=== PATIENT | female | born 1960 | race Caucasian/White ===

== ENCOUNTER 2022-07-17 07:50 | Emergency (ER) | payer BC, SELFPAY ==
[2022-07-17] VITALS (22 sets, daily range): BP systolic 104–152; BP diastolic 44–119; PULSE 48–66; RESP 12–26; TEMP 36.3; O2SAT 98–100
--- NOTE | 2022-07-17 08:00 | RT.EKG_ITS ---
APPROVED REPORT Exam: Resting ECG Reason for Exam: chest pain Patient Location: E HR:56 bpm ECG Measurements Heart Rate 56 AXIS NE 177 P 81 QRSd 83 QRS 68 QT 444 T 54 QTc 430 Conclusion Sinus bradycardia...rate< 60
--- OUTSIDE RECORDS SUMMARY | 2022-07-17 08:03 | XMS_ITS | Encounter Summary ---
:1960 Author Organization [facility] Address [address] [place] [address] Care Team Providers Name Role Phone Sapphire Montez MD Primary Care Provider [phone] Encounter Details Date Type Department Care Team Description 12/19/2020 Travel Social History Tobacco Use Types Packs/Day Years Used Date Smoking Tobacco: Former Smokeless Tobacco: Never Comments: quit many yrs ago Alcohol Use Standard Drinks/Week Comments No 0 (1 standard drink = 0.6 oz pure alcoho l) Sex Assigned at Date Recorded Not on file Job Start Date Occupation Industry Not on file Not on file Not on file COVID-19 Exposure Response Date Recorded In the last month, have you been in contact with No / Unsure 12/19/2020 11:18 AM EST someone who was confirmed or suspected to have Coronavirus / COVID-19? documented as of this encounter Plan of Treatment Not on filedocumented as of this encounter Visit Diagnoses Not on filedocumented in this encounter Care Teams Renal Dialysis Technician Relationship Specialty Start Date End Date Sapphire Montez MD PCP - General Internal Medicine 08/06/18 documented as of this encounter
--- OUTSIDE RECORDS SUMMARY | 2022-07-17 08:03 | XMS_ITS | Encounter Summary ---
:1960 Author Organization [facility] Address [address] [place] [address] Care Team Providers Name Role Phone Sapphire Montez MD Primary Care Provider [phone] Encounter Details Date Type Department Care Team Description 12/21/2021 Travel Social History Tobacco Use Types Packs/Day Years Used Date Smoking Tobacco: Former Cigarettes 0 0 Smokeless Tobacco: Never Comments: quit many yrs [...] been in contact with No / Unsure 12/21/2021 12:10 PM EST someone who was confirmed or suspected to have Coronavirus / COVID-19? documented as of this encounter Plan of Treatment Not on filedocumented as of this encounter Visit Diagnoses Not on filedocumented in this encounter Care Teams Production Zone Leader Relationship Specialty Start Date End Date Sapphire Montez MD PCP - General Internal Medicine 08/06/18 documented as of this encounter
--- OUTSIDE RECORDS SUMMARY | 2022-07-17 08:03 | XMS_ITS | Encounter Summary ---
:1960 Author Organization [facility] Address [address] [place] [address] Care Team Providers Name Role Phone Sapphire Montez MD Primary Care Provider [phone] Reason for Referral Imaging (Routine) - Closed Specialty Diagnoses / Procedures Referred By Contact Refer red To Contact Radiology Diagnoses Encounter for screening mammogram for malignant neoplasm of breast Tyra Vallejo Procedures Mammogram Breast Screening Tomosynthesis Bilateral CHG SCREENING MAMMOGRAPHY BILATERAL [address] [place] [address] Referral ID Status Reason Start Date Expiration Date Visits Requ ested Visits Authorized [id number] Closed 10/28/2021 1 1 Reason for Visit Imaging (Routine) - Closed Specialty Diagnoses / Procedures Referred By Contact Refer eze To Contact Radiology Diagnoses Encounter for screening mammogram for malignant neoplasm of breast Tyra Vallejo Procedures Mammogram Breast Screening Tomosynthesis Bilateral CHG SCREENING MAMMOGRAPHY BILATERAL [address] [place] [address] Referral ID Status Reason Start Date Expiration Date Visits Requ ested Visits Authorized [id number] Closed 10/28/2021 1 1 Encounter Details Date Type Department Care Team Description 11/01/2021 Hospital Encounter [facility] for screening Women mammogram for malignant [address] [place] [address] Social History Tobacco Use Types Packs/Day Years Used Date Smoking Tobacco: Former Cigarettes 0 0 Smokeless Tobacco: Never Comments: quit many yrs ago Alcohol Use Standard Drinks/Week Comments No 0 (1 standard drink = 0.6 oz pure alcoho l) Sex Assigned at Date Recorded Not on file Job Start Date Occupation Industry Not on file Not on file Not on file documented as of this encounter Last Filed Vital Signs Vital Sign Reading Time Taken Comments Blood Pressure - - Pulse - - Temperature - - Respiratory Rate - - Oxygen Saturation - - Inhaled Oxygen Concentration - - Weight 49.9 kg (110 lb) 11/01/2021 8:31 AM EST Height 157.5 cm (5' 2) 11/01/2021 8:31 AM EST Body Mass Index 20.12 11/01/2021 8:31 AM EST documented in this encounter Medications at Time of Discharge Medication Sig Dispensed Refills Start Date End Date coenzyme Q-10 100 mg Take 100 mg by mouth 0 capsule 1 (one) time each day. estradiol (VIVELLE-DOT) Place 1 patch on the 0 0.075 mg/24 hr skin 2 (two) times a week. nitroGLYCERIN (NITROSTAT) Place 0.4 mg under 0 0.4 mg SL tablet the tongue every 5 (five) minutes if needed for chest pain. PROGESTERONE MICRONIZED Take 100 mg by mouth 0 ORALIndications: pt to 1 (one) time each confirm dosage DOS day. ranolazine (RANEXA) 500 mg Take 500 mg by mouth 0 12 hr tablet 2 (two) times a day. Do not crush, chew, or split. sennosides (SENOKOT ORAL) Take 1 tablet by 0 mouth 1 (one) time each day. traZODone (DESYREL) 50 mg Take 25 mg by mouth 0 tabletIndications: 25-50mg every night. nightly documented as of this encounter Plan of Treatment Not on filedocumented as of this encounter Procedures Procedure Name Priority Date/Time Associated Comments Diagnosis MAMMO BREAST SCREENING Routine 11/01/2021 8:30 AM Encounter fo r Results for this TOMOSYNTHESIS EST screening mammogram procedu re are in BILATERAL for malignant the results neoplasm of breast section. documented in this encounter Results Mammogram Breast Screening Tomosynthesis Bilateral (11/01/2021 8:30 AM EST) Anatomical Region Laterality Modality Breast Bilateral Mammography Specimen (Source) Anatomical Location Collection Method / Collectio n Time Received Time / Laterality Volume Impressions 11/01/2021 3:57 PM EST No mammographic evidence of malignancy. The patient will be notified of the resu lts. Screening Mammogram in 1 Year is recomme nded for both breasts. Overall BI-RADS category: 1 - Negative Policy Change Clerk: Kalyn Jerez Electronically signed by: Tasneem michaels MD On: 11/01/21 3:54 PM Narrative 11/01/2021 3:57 PM EST Mammogram Breast Screening Tomosynthesis Bilateral obtained on 11/01/21. INDICATION: Visit for Screening Mammogra m COMPARED TO: 08/21/2020 Mammogram Breast Screening To [facility]ynthesis Bilateral at [facility] 06/24/2019 Mammogram Problem Solving Add itional Views Left at [facility] 06/08/2019 Mammogram Breast Screening To mosynthesis Bilateral at [facility] BREAST COMPOSITION: The tissue of both b reasts is heterogenously dense. This will lower the sensitivity of mammo graphy. Your patient's mammogram demonstrates that she has dense breast t issue, which could hide small abnormalities. The patient has been sent a letter which informs her that she has dense breast tissue. The patient may contact you if she has any questions or concerns. RISK ASSESSMENT: Based on the Tyrer-Cuzi ck model, this patient's calculated 10-year risk for developing b reast cancer is Tyrer-Cuzick: 2.28 % and the patient's lifetime risk is Tyr er-Cuzick: 5.54 %. The [employer] considers women with 20% lifetime risk as high risk. Between 15% and 20% is considered inter mediate risk. These patients may benefit from enrollment in a high risk screening program for complete and thorough breast cancer risk assessme nt and management. FINDINGS: Computer-aided detection was used by the radiologist in the interpretation of this examination. This procedure was performed using tomosynthesis. ?? There are no suspicious masses, calcific ations, or other abnormal findings. Tyra BOYCE BI PROCEDURES documented in this encounter Visit Diagnoses Diagnosis Encounter for screening mammogram for ma lignant neoplasm of breast documented in this encounter Care Teams Waste Transportation Technician Relationship Specialty Start Date End Date Sapphire Montez MD PCP - General Internal Medicine 08/06/18 documented as of this encounter
--- OUTSIDE RECORDS SUMMARY | 2022-07-17 08:03 | XMS_ITS | Encounter Summary ---
:1960 Author Organization [facility] Address [address] [place] [address] Care Team Providers Name Role Phone Sapphire Montez MD Primary Care Provider [phone] Encounter Details Date Type Department Care Team Description 09/20/2021 Lab Outreach Lab Reena Charles Swelling of right hand [address] [phone] Social History Tobacco Use Types Packs/Day Years [...] on file documented as of this encounter Plan of Treatment Not on filedocumented as of this encounter Procedures Procedure Name Priority Date/Time Associated Diagnosis Comme nts CYCLIC CITRUL Routine 09/20/2021 8:46 AM Swelling of right Res ults for this PEPTIDE ANTIBODY, EDT hand procedure are in IGG the results section. documented in this encounter Results Cyclic citrul peptide antibody, IgG (09/20/2021 8:46 AM EDT) P athologist Signature Cyclic <15.6 <20.0 09/21/2021 [facility] Citrullin (Negative) 5:31 PM EDT Peptide Ab U Comment: Test Performed by: [facility] [address] [address] Recruiting Assistant: Nikolas Martinez M.D. Ph. D.; CLIA# [id number] Specimen Anatomical Collection Method / Collection Time Recei debbie Time (Source) Location / Volume Laterality Blood Venous blood / Venipuncture / 09/20/2021 8:46 09/20/20 8:46 Unknown Unknown AM EDT AM EDT Deepika Hood PA-C LAB BLOOD ORDERABLES Performing Organization Address City/State/ZIP Code Phon e Number [facility] [address] [place] [address] documented in this encounter Visit Diagnoses Diagnosis Swelling of right hand documented in this encounter Care Teams Head Baggage Porter Relationship Specialty Start Date End Date Sapphire Montez MD PCP - General Internal Medicine 08/06/18 documented as of this encounter
--- OUTSIDE RECORDS SUMMARY | 2022-07-17 08:03 | XMS_ITS | Encounter Summary ---
:1960 Author Organization [facility] Address [address] [facility] [place] [address] Care Team Providers Name Role Phone Sapphire Montez MD Primary Care Provider [phone] Reason for Visit (Routine) - Incomplete Specialty Diagnoses / Procedures Referred By Contact Refer red To Contact Diagnoses Left hip pain Sincere Mayfield MD Procedures X-ray Hip Left 2 or 3 Views CHG RADEX HIP UNILATERAL WITH PELVIS 2-3 VIEWS [address] [address] Referral ID Status Reason Start Date Expiration Date Visits V isits Requested Authorized [id number] Incomplete 05/05/2022 1 1 Encounter Details Date Type Department Care Team Description 05/05/2022 Ancillary Procedure [facility] Phi Mayfield MD Orthopedics in [facility] [place] affiliation with [facility] [address] [address] [phone] (Wo rk) Social History Tobacco Use Types Packs/Day Years [...] Exposure Response Date Recorded In the last 10 days, have you been in contact with No / Unsu re 04/29/2022 6:22 PM EDT someone who was confirmed or suspected to have Coronavirus/COVID-19? documented as of this encounter Plan of Treatment Not on filedocumented as of this encounter Procedures Procedure Name Priority Date/Time Associated Diagnosis Comme nts XR HIP 2 OR 3 VW Routine 05/05/2022 1:46 PM Left hip pain Resu lts for this LEFT EDT procedure are i n the results section. documented in this encounter Results X-ray Hip Left 2 or 3 Views (05/05/2022 1:46 PM EDT) Anatomical Region Laterality Modality Lower Extremities, Hip Left Digital Radiograp hy Specimen (Source) Anatomical Location Collection Method / Collectio n Time Received Time / Laterality Volume Narrative 05/05/2022 1:55 PM EDT Imaging of the left hip is reviewed reveals no evidence of DJD. ??There is evidence of retained hardware from appar ently previous femoral neck fracture. ??Implants remain well aligned well fixed no evidence of acute bony injury. Sincere Mayfield MD IMG XR PROCEDURES documented in this encounter Visit Diagnoses Not on filedocumented in this encounter Care Teams Jig Hand Relationship Specialty Start Date End Date Sapphire Montez MD PCP - General Internal Medicine 08/06/18 documented as of this encounter
--- OUTSIDE RECORDS SUMMARY | 2022-07-17 08:03 | XMS_ITS | Encounter Summary ---
:1960 Author Organization [facility] Address [address] [place] [address] Care Team Providers Name Role Phone Sapphire Montez MD Primary Care Provider [phone] Encounter Details Date Type Department Care Team Description 01/19/2022 Travel Social History Tobacco Use Types Packs/Day [...] on filedocumented in this encounter Care Teams Underwear Welter Relationship Specialty Start Date End Date Sapphire Montez MD PCP - General Internal Medicine 08/06/18 documented as of this encounter
--- OUTSIDE RECORDS SUMMARY | 2022-07-17 08:03 | XMS_ITS | Encounter Summary ---
:1960 Author Organization [facility] Address [address] [place] [address] Care Team Providers Name Role Phone Sapphire Montez MD Primary Care Provider [phone] Reason for Referral (Routine) - Closed Specialty Diagnoses / Procedures Referred By Contact Refer red To Contact Diagnoses Pain in right finger(s) Sapphire Montez MD Procedures X-ray Hand 3+ Views Right CHG X-RAY HAND 3+ [address] [place] [address] Referral ID Status Reason Start Date Expiration Date Visits Requ ested Visits Authorized [id number] Closed 08/20/2021 02/16/2022 1 1 Reason for Visit (Routine) - Closed Specialty Diagnoses / Procedures Referred By Contact Refer red To Contact Diagnoses Pain in right finger(s) Sapphire Montez MD Procedures X-ray Hand 3+ Views Right CHG X-RAY HAND 3+ [address] [place] [address] Referral ID Status Reason Start Date Expiration Date Visits Requ ested Visits Authorized [id number] Closed 08/20/2021 02/16/2022 1 1 Encounter Details Date Type Department Care Team Description 08/20/2021 Hospital Encounter Medical Imaging of Sapphire Montez Pain in right Van Tassell MD Ethel finger(s) [address] [facility], [address] [facility] [address] [address] [place], [place] [phone] [address] Social History Tobacco Use Types Packs/Day Years Used Date Smoking Tobacco: Former Smokeless Tobacco: Never Comments: quit many yrs ago Alcohol Use Standard Drinks/Week Comments No 0 (1 standard drink = 0.6 oz pure alcoho l) Sex Assigned at Date Recorded Not on file Job Start Date Occupation Industry Not on file Not on file Not on file documented as of this encounter Medications at Time of Discharge [...] Priority Date/Time Associated Diagnosis Comme nts XR HAND 3+ VIEWS Routine 08/20/2021 6:42 PM Pain in right Resu lts for this RIGHT EDT finger(s) procedure are i n the results section. documented in this encounter Results X-ray Hand 3+ Views Right (08/20/2021 6:42 PM EDT) Anatomical Region Laterality Modality Upper Extremities, Hand Right Digital Radiogra phy Specimen (Source) Anatomical Collection Method Collection Time Re ceived Time Location / / Volume Laterality 08/21/2021 11:34 AM EDT Impressions 08/21/2021 11:35 AM EDT Unremarkable right hand radiography.. Dictated: Jung Bermudez MD On: 08/21/20 11:34 AM Electronically signed by: Jung Bermudez MD On: 08/21/2021 11:35 AM Transcribed: Narrative 08/21/2021 11:35 AM EDT History: Swelling and pain at the metacarpophalangeal joints of the right hand for 2-3 months. Report: A total of 4 exposures, 4 radiog raphic images, including PA, internal oblique, external oblique, and lateral radiographs of the right hand is submitted for interpretation. Findings: There is no evidence of acute displaced fracture or dislocation of the osseous structures of the right hand. Mineralization of the osseous structures of the right hand is normal. Soft tissues of the right hand appear un remarkable radiographically. Procedure Note Jung Bermudez MD - 08/21/2021Format ting of this note might be different from the original. History: Swelling and pain at the metaca rpophalangeal joints of the right hand for 2-3 months. Report: A total of 4 exposures, 4 radiog raphic images, including PA, internal oblique, external oblique, and lateral radiographs of the right hand is submitted for interpretation. Findings: There is no evidence of acute displaced fracture or dislocation of the osseous structures of the right hand. Mineralization of the osseous structures of the right hand is normal. Soft tissues of the right hand appear un remarkable radiographically. IMPRESSION: Unremarkable right hand radiography.. Dictated: Jung Bermudez MD On: 08/21/20 11:34 AM Electronically signed by: Jung Bermudez MD On: 08/21/2021 11:35 AM Transcribed: Sapphire Montez MD IMG XR PROCEDURES documented in this encounter Visit Diagnoses Diagnosis Pain in right finger(s) documented in this encounter Care Teams Tumbling Barrel Painter Relationship Specialty Start Date End Date Sapphire Montez MD PCP - General Internal Medicine 08/06/18 documented as of this encounter
--- OUTSIDE RECORDS SUMMARY | 2022-07-17 08:03 | XMS_ITS | Encounter Summary ---
:1960 Author Organization [facility] Address [address] [place] [address] Care Team Providers Name Role Phone Sapphire Montez MD Primary Care Provider [phone] Encounter Details Date Type Department Care Team Description 08/28/2021 Telephone [facility] Orthopedics in [place], affiliation with [facility] [address] [address] [place], [place] [phone] (Wo rk) Social History Tobacco Use Types [...] on file documented as of this encounter Miscellaneous Notes Telephone Encounter - Francy Dominguez MA - 08/28/2021 12:35 PM EDT Scheduled patient for first available. Patient c/o right wrist pain and swelling for past year-no injury. Patient stated appt with PA was fine. documented in this encounter Plan of Treatment Not on filedocumented as of this encounter Visit Diagnoses Not on filedocumented in this encounter Care Teams Lone Lead Lineman Relationship Specialty Start Date End Date Sapphire Montez MD PCP - General Internal Medicine 08/06/18 documented as of this encounter
--- OUTSIDE RECORDS SUMMARY | 2022-07-17 08:03 | XMS_ITS | Clinical Summary ---
:1960 Author Organization [facility] Address [address] [place] [address] Care Team Providers Name Role Phone Sapphire Montez MD Primary Care Provider [phone] Allergies No known active allergies Medications Medication Sig Dispensed Refills Start Date End Date Status traZODone (DESYREL) 50 Take 25 mg by 0 Active mg tabletIndications: mouth every 25-50mg nightly night. nitroGLYCERIN Place 0.4 mg 0 Act kaelyn (NITROSTAT) 0.4 mg SL under the tongue tablet every 5 (five) minutes if needed for chest pain. ranolazine (RANEXA) 500 Take 500 mg by 0 Active mg 12 hr tablet mouth 2 (two) times a day. Do not crush, chew, or split. estradiol (VIVELLE-DOT) Place 1 patch on 0 Active 0.075 mg/24 hr the skin 2 (two) times a week. PROGESTERONE MICRONIZED Take 100 mg by 0 Active ORALIndications: pt to mouth 1 (one) confirm dosage DOS time each day. coenzyme Q-10 100 mg Take 100 mg by 0 Active capsule mouth 1 (one) time each day. sennosides (SENOKOT Take 1 tablet by 0 Active ORAL) mouth 1 (one) time each day. dilTIAZem (TIAZAC) 300 Take 1 capsule 30 capsule 0 11/20/2019 Active mg 24 hr capsule (300 mg total) by mouth 1 (one) time each day. Additional Information Patient taking differently: 240 mg oral Daily, Other, Reported on 08/16/2020 albuterol HFA (Proventil HFA) 90 Inhale 2 puffs every 6 (six) 0 Active mcg/actuation inhaler hours if needed. amLODIPine (Norvasc) 2.5 mg Take 2.5 mg by mouth. 0 Active tablet escitalopram (Lexapro) 10 mg Take 10 mg by mouth 1 (one) 0 03/12/2022 Active tablet time each day. ibuprofen (Advil) 200 mg tablet Take 800 mg by mouth. 0 Active ipratropium-albuteroL (Combivent Inhale 2 puffs every 6 (six) 0 Active Respimat) 20-100 mcg/actuation hours. inhaler miSOPROStoL (Cytotec) 200 mcg TAKE 2 TABLETS BY MOUTH 12 0 02/28/2022 Active tablet HOUR BEFORE PROCEDURE montelukast (Singulair) 10 mg Take 10 mg by mouth every 0 Active tablet night. nebivoloL (Bystolic) 2.5 mg Take 2.5 mg by mouth 1 (one) 0 02/20/2022 Active tablet time each day. rosuvastatin (Crestor) 10 mg 0 Active tablet rosuvastatin (Crestor) 10 mg Take 10 mg by mouth 1 (one) 0 03/21/2022 Active tablet time each day. Active Problems Problem Noted Date Prinzmetal angina 11/18/2019 [place] (myocardial infarction) 09/09/2018 Atherosclerotic coronary vascular disease 07/17/2018 Abdominal pain 12/04/2017 Urinary tract infectious disease 12/04/2017 Patellar tendinitis of left knee 06/06/2014 Insomnia 05/02/2011 Recurrent urinary tract infection 05/02/2011 Encounters Date Type Specialty Care Team Description 05/05/2022 Ancillary Procedure Orthopaedic Surgery Sincere Mayfield MD 05/05/2022 Office Visit Orthopaedic Surgery [facility], Left hip pain (Primary Dx); MD Sincere Contusion of le ft hip, initial encounter 04/29/2022 Travel from Last 3 Months Immunizations Name Administration Dates Next Due Influenza Injectable Quadrivalent, 11/15/2019 (Deferred: Kelsey mesa Refused - Preservative Free pt now states she does not want this will get from her PCP at a later date) Pfizer SARS-CoV-2 Vaccination 02/28/2021, 02/07/2021, 2020, 12/21/2020 Tdap 03/21/2022 Family History Medical History Relation Comments No Known Problems Father No Known Problems Mother No Known Problems Sister 1 No Known Problems Sister 2 No Known Problems Sister 3 Relation Status Comments Father Mother Sister 1 Sister 2 Sister 3 Social History Tobacco Use Types Packs/Day Years Used Date Smoking Tobacco: Former Cigarettes 0 0 Smokeless Tobacco: Never Comments: quit many yrs ago Alcohol Use Standard Drinks/Week Comments No 0 (1 standard drink = 0.6 oz pure alcoho l) Sex Assigned at Date Recorded Not on file Job Start Date Occupation Industry Not on file Not on file Not on file Last Filed Vital Signs Vital Sign Reading Time Taken Comments Blood Pressure 178/82 10/03/2020 7:32 PM EST Pulse 78 10/03/2020 7:32 PM EST Temperature 37.1 ??C (98.8 ??F) 10/03/2020 7:32 PM EST Respiratory Rate 16 10/03/2020 7:31 PM EST Oxygen Saturation 97% 10/03/2020 7:32 PM EST Inhaled Oxygen Concentration - - Weight 49.9 kg (110 lb) 05/05/2022 1:51 PM EDT Height 157.5 cm (5' 2) 05/05/2022 1:51 PM EDT Body Mass Index 20.12 05/05/2022 1:51 PM EDT Plan of Treatment Health Maintenance Due Date Last Done Comments CT Colonography 1960 Colonoscopy 1960 Colorectal Cancer Screening 1960 Colposcopy 1960 FIT-DNA 1960 FIT 1960 FOBT 1960 Hepatitis B Vaccines (1 of 3 1960 - 3-dose series) LEEP/Biopsy 1960 Procedure 1960 Sigmoidoscopy 1960 MMR Vaccines (1 of 1 - 1961 Standard series) Varicella Vaccines (1 of 2 - 1961 2-dose childhood series) Pneumococcal Vaccine: 1966 Pediatrics (0 to 5 Years) and At-Risk Patients (6 to 64 Years) (1 - PCV) Pap Smear 1981 Cervical Cancer Screening 1990 HPV/Cotest 1990 Zoster Vaccines (1 of 2) 2010 DTaP,Tdap,and Td Vaccines (2 04/18/2022 03/21/2022 - Td or Tdap) Influenza Vaccine (#1) 2022 Mammogram 11/01/2022 11/01/2021, 08/21/2020, 06/08/2019 COVID-19 Vaccine Completed 09/09/2021, 02/28/2021, 02/07/2021, Additional history exists HIB Vaccines Aged Out No longer eligib le based on patient 's age to complete this topic HPV Vaccines Aged Out No longer eligib le based on patient 's age to complete this topic Hepatitis A Vaccines Aged Out No longer e ligible based on patient 's age to complete this topic IPV Vaccines Aged Out No longer eligib le based on patient 's age to complete this topic Meningococcal Vaccine Aged Out No longer eligible based on patient 's age to complete this topic Medical Devices Implanted Type Area Director Of Marketing Analytics Device Shelf Model / Identifier Expiration Serial / Date Lot Screw Bone Cannulated Stainless Steel 16mm Thread Hexa gonal Socket 75 X 7.3mm MISCELLANEOUS Left: [employer] SYN[employer] CMF 208.875 / Implanted: Qty: 1 on 11/14/2019 by Sincere Chavira MD at [facility] IMPLANTS Hip / NA Description: Serial no and exp date na Procedures Procedure Name Priority Date/Time Associated Diagnosis Comme nts XR HIP 2 OR 3 VW Routine 05/05/2022 1:46 PM Left hip pain Resu lts for this LEFT EDT procedure are i n the results section. from Last 3 Months Results X-ray Hip Left 2 or 3 [...] injury. 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
--- OUTSIDE RECORDS SUMMARY | 2022-07-17 08:03 | XMS_ITS | Encounter Summary ---
:1960 Author Organization [facility] Address [address] [place] [address] Care Team Providers Name Role Phone Sapphire Montez MD Primary Care Provider [phone] Encounter Details Date Type Department Care Team Description 12/21/2020 Clinical Support [facility] Mobile COVID Encoun ter for Immunization Clinic vaccinat ion (Primary Dx) Social History Tobacco Use Types Packs/Day Years [...] filedocumented as of this encounter Visit Diagnoses Diagnosis Encounter for vaccination - Primary documented in this encounter Care Teams Metal Mover Relationship Specialty Start Date End Date Sapphire Montez MD PCP - General Internal Medicine 08/06/18 documented as of this encounter
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
--- OUTSIDE RECORDS SUMMARY | 2022-07-17 08:03 | XMS_ITS | Encounter Summary ---
:1960 Author Organization [facility] Address [address] [place] [address] Care Team Providers Name Role Phone Sapphire Montez MD Primary Care Provider [phone] Reason for Visit Reason Comments Pain Encounter Details Date Type Department Care Team Description 09/19/2021 Office Visit Ashai Mathur of right hand Orthopedics in [place] (Primary Dx) affiliation with [address] [id number] Social History Tobacco Use Types Packs/Day Years [...] on file documented as of this encounter Progress Notes Deepika Hood PA-C - 09/19/2021 10:00 AM EDT New Patient 09/19/21 10:43 AM Chief Complaint: Chief Complaint Patient presents with ??? Right Wrist - Pain History of Present Illness: She is a very pleasant 60 y.o. right hand dominant female who is here today for right hand pain located along the of MCP joints of digits 2 through 5. She initially has noticed swelling throughout those joints for the past year and has increased with certain activities such as kayaking and paddle boarding. Over this past month , however , the swelling became worse. She felt like the joints were also tender and and red. She was seen by her primary care doctor ordered an x-ray and blood work and she was told that the blood work was negative for rheumatoid arthritis, but she does not know which antibodies were tested. She was told to try diclofenac gel which only helped slightly with swelling. She has been using ice which has significantly helped the swelling. She also feels like both hands have become stiff and not as nimble as what they oncce were. she does have a history of Lyme disease and has noticed swelling and pain in multiple joints throughout her body in the past, but her main concern today is the right hand. Pain described as a 4/10 worsened by certain movements and improved by avoiding activity, ice, medications. Associated symptoms include swelling and weakness. Here today for initial orthopedic evaluation. History: Review of Systems Constitutional: Negative for fever. Respiratory: Negative for shortness of breath. Cardiovascular: Negative for chest pain. Musculoskeletal: Negative for arthralgias, joint swelling and myalgias. Neurological: Negative for numbness. Current Outpatient Medications: ??? coenzyme Q-10 100 mg capsule, Take 100 mg by mouth 1 (one) time each day., Disp: , Rfl: ??? diclofenac (Voltaren) 75 mg EC tablet, Take 1 tablet (75 mg total) by mouth 2 (two) times a day.Do not crush, chew, or split., Disp: 60 tablet, Rfl: 0 ??? dilTIAZem (TIAZAC) 300 mg 24 hr capsule, Take 1 capsule (300 mg total) by mouth 1 (one) time each day. (Patient taking differently: Take 240 mg by mouth 1 (one) time each day. ), Disp: 30 capsule, Rfl: 0 ??? estradiol (VIVELLE-DOT) 0.075 mg/24 hr, Place 1 patch on the skin 2 (two) times a week., Disp: ,Rfl: ??? nitroGLYCERIN (NITROSTAT) 0.4 mg SL tablet, Place 0.4 mg under the tongue every 5 (five) minutesif needed for chest pain., Disp: , Rfl: ??? PROGESTERONE MICRONIZED ORAL, Take 100 mg by mouth 1 (one) time each day. , Disp: , Rfl: ??? ranolazine (RANEXA) 500 mg 12 hr tablet, Take 500 mg by mouth 2 (two) times a day. Do not crush,chew, or split., Disp: , Rfl: ??? sennosides (SENOKOT ORAL), Take 1 tablet by mouth 1 (one) time each day., Disp: , Rfl: ??? traZODone (DESYREL) 50 mg tablet, Take 25 mg by mouth every night. , Disp: , Rfl: Past Medical History: Diagnosis Date ??? Angina pectoris (CMS-HCC) ??? Anxiety ??? Coronary artery disease coronary microvascular disease ??? Coronary vasospasm (CMS/HCC) right coronary artery ??? Fractures non displaced femoral neck fx left ??? Hyperlipidemia ??? Hypertension ??? Joint pain L hip ??? Pneumonia 10 yrs ago ??? Wears glasses reading Family History Problem Relation Age of Onset ??? No Known Problems Sister ??? No Known Problems Sister ??? No Known Problems Sister ??? No Known Problems Mother ??? No Known Problems Father Past Surgical History: Procedure Laterality Date ??? CARDIAC CATHETERIZATION ??? SECTION x 3 ??? CYST REMOVAL Left Benign Cyst Removal ??? FEMUR FRACTURE SURGERY Left 10/2019 Social History Socioeconomic History ??? Marital status: Spouse name: Not on file ??? Number of children: Not on file ??? Years of education: Not on file ??? Highest education level: Not on file Occupational History ??? Not on file Tobacco Use ??? Smoking status: Former Smoker Packs/day: 0.00 Years: 0.00 Pack years: 0.00 ??? Smokeless tobacco: Never Used ??? Tobacco comment: quit many yrs ago Substance and Sexual Activity ??? Alcohol use: No ??? Drug use: No ??? Sexual activity: Defer Other Topics Concern ??? Not on file Social History Narrative ??? Not on file Social Determinants of Health Financial Resource Strain: ??? Difficulty of Paying Living Expenses: Not on file Food Insecurity: ??? Worried About Running Out of Food in the Last Year: Not on file ??? Ran Out of Food in the Last Year: Not on file Transportation Needs: ??? Lack of Transportation (Medical): Not on file ??? Lack of Transportation (Non-Medical): Not on file Physical Activity: ??? Days of Exercise per Week: Not on file ??? Minutes of Exercise per Session: Not on file Stress: ??? Feeling of Stress : Not on file Social Connections: ??? Frequency of Communication with Friends and Family: Not on file ??? Frequency of Social Gatherings with Friends and Family: Not on file ??? Attends Buddhism Services: Not on file ??? Active Member of Clubs or Organizations: Not on file ??? Attends Club or Organization Meetings: Not on file ??? Marital Status: Not on file Intimate Partner Violence: ??? Fear of Current or Ex-Partner: Not on file ??? Emotionally Abused: Not on file ??? Physically Abused: Not on file ??? Sexually Abused: Not on file Housing Stability: ??? Unable to Pay for Housing in the Last Year: Not on file ??? Number of Places Lived in the Last Year: Not on file ??? Unstable Housing in the Last Year: Not on file Reviewed ROS, past medical, family, surgical and social history. Physical Exam: Constitutional: The patient appears to be their stated age. They are in no acute distress Psychiatric: Alert and oriented x4 Respiratory: Breathing is non-labored Neurology: No focal motor or sensory deficits Skin: No evidence of any open wounds or lesions. Normal skin color and temperature Lymphatic: No appreciable adenopathy Vascular: Peripheral pulses and capillary refill are intact Musculoskeletal: On physical exam, mild swelling noted throughout the dorsal aspect of the MCP joints of digits 2 through 5 of the right hand. They are not tender to palpation on today's exam today. Noerythema or warmth noted along the MCP joints. She make a full fist has full extension of all 5 digits. Bilateral negative Phalen's, carpal compression, and Tinel's test. No significant thenar atrophy noted. She is neurovascularly intact. Ancillary: I independently reviewed the right hand x-rays which were done on 08/20/21 which showed mild joint space narrowing along the MCP joints, most significant at the at the MCP joint of the right small finger. No acute fractures or dislocations noted Imaging: X-ray Hand 3+ Views Right Narrative: History: Swelling and pain at the metacarpophalangeal joints of the right hand for 2-3 months. Report: A total of 4 exposures, 4 radiographic images, including PA, internal oblique, external oblique, and lateral radiographs of the right hand is submitted for interpretation. Findings: There is no evidence of acute displaced fracture or dislocation of the osseous structures of the right hand. Mineralization of the osseous structures of the right hand is normal. Soft tissues of the right hand appear unremarkable radiographically. Impression: Unremarkable right hand radiography.. Dictated: Jung Bermudez MD On: 08/21/2021 11:34 AM Electronically signed by: Jung Bermudez MD On: 08/21/2021 11:35 AM Transcribed: Assessment and Plan: Diagnosis Plan 1. Swelling of right hand diclofenac (Voltaren) 75 mg EC tablet Uric acid Sedimentation rate (ESR) C-reactive protein DAVON Cyclic citrul peptide antibody, IgG Based on history and physical exam, differentials for swelling include underlying osteoarthritis versus possible autoimmune condition. I recommend blood work to rule out autoimmune conditions. Also recommend diclofenac and a compression glove to see was helps with the swelling. I do recommend manual tester stre ngthening exercises. Follow-up in 6 weeks for further evaluation and to review the blood work. She has call the office before then with any concerns. This note was generated using voice recognition software which may contain certain grammatical and word choice errors. SHIKHA Lyons PA-C documented in this encounter Plan of Treatment Not on filedocumented as of this encounter Procedures Procedure Name Priority Date/Time Associated Comments Diagnosis SEDIMENTATION RATE Routine 09/20/2021 8:46 AM Swelling of righ t Results for this (ESR) EDT hand procedure are i n the results section. C-REACTIVE PROTEIN Routine 09/20/2021 8:46 AM Swelling of righ t Results for this EDT hand procedure are i n the results section. DAVON Routine 09/20/2021 8:46 AM Swelling of right Resu lts for this EDT hand procedure are i n the results section. URIC ACID Routine 09/20/2021 8:46 AM Swelling of right Resu lts for this EDT hand procedure are i n the results section. documented in this encounter Results Cyclic citrul peptide antibody, IgG (09/20/2021 8:46 AM EDT) P athologist Signature Cyclic <15.6 <20.0 09/21/2021 [facility] Citrullin (Negative) 5:31 PM EDT Peptide Ab U Comment: Test Performed by: [place] [id number] Perinatal Specialist: Nikolas Martinez M.D. Ph. D.; CLIA# [id number] Specimen Anatomical Collection Method / Collection Time Recei debbie Time (Source) Location / Volume Laterality Blood Venous blood / Venipuncture / 09/20/2021 8:46 09/20/20 8:46 Unknown Unknown AM EDT AM EDT Deepika Hood PA-C LAB BLOOD ORDERABLES Performing Organization Address [facility] Phon e Number [facility] [address] [place] [address] DAVON (09/20/2021 8:46 AM EDT) Patholo gist Method Time Signature Antinuclear Ab, <1:80 <1:80 09/23/2021 [facility] HEp-2 Substrate, (Negative (Negative 1:42 PM EDT LABORATORY S ) ) Comment: ADDITIONAL INFORMATIO N Method: Immunofluorescence using HEp-2 c ellular substrate. Test Performed by: [place] [id number] Perinatal Specialist: Nikolas Martinez M.D. Ph. D.; CLIA# [id number] Specimen Anatomical Collection Method / Collection Time Recei debbie Time (Source) Location / Volume Laterality Blood Venous blood / Venipuncture / 09/20/2021 8:46 09/20/20 8:46 Unknown Unknown AM EDT AM EDT Deepika Hood PA-C LAB MICROBIOLOGY - GENERAL O RDERABLES Performing Organization Address [facility] Phon e Number [facility] [address] [place] [address] C-reactive protein (09/20/2021 8:46 AM EDT) athologist Signature CRP <0.5 0.0 - 1.0 LAB CHEMISTRY 09/20/2021 [facility] mg/dL METHOD 10:37 AM EDT Specimen Anatomical Collection Method / Collection Time Recei debbie Time (Source) Location / Volume Laterality Blood Venous blood / Venipuncture / 09/20/2021 8:46 09/20/20 8:46 Unknown Unknown AM EDT AM EDT Deepika Hood PA-C LAB BLOOD ORDERABLES Performing Organization Address City/[facility] Phon e Number [facility] [address] [place] [address] Sedimentation rate (ESR) (09/20/2021 8:46 AM EDT) athologist Signature Sed Rate 1 0 - 30 mm/hr 09/20/2021 [facility] 10:04 AM EDT Specimen Anatomical Collection Method / Collection Time Recei debbie Time (Source) Location / Volume Laterality Blood Venous blood / Venipuncture / 09/20/2021 8:46 09/20/20 8:46 Unknown Unknown AM EDT AM EDT Deepika Hood PA-C LAB BLOOD ORDERABLES Performing Organization Address [facility] Phon e Number [facility] [address] [place] [address] Uric acid (09/20/2021 8:46 AM EDT) athologist Signature Uric Acid 2.6 2.5 - 7.5 LAB CHEMISTRY 09/20/2021 [facility] mg/dL METHOD 10:37 AM EDT Specimen Anatomical Collection Method / Collection Time Recei debbie Time (Source) Location / Volume Laterality Blood Venous blood / Venipuncture / 09/20/2021 8:46 09/20/20 8:46 Unknown Unknown AM EDT AM EDT Deepika Saleemter PA-C LAB BLOOD ORDERABLES Performing Organization Address City/[facility] Phon e Number [facility] [address] [place] [address] documented in this encounter Visit Diagnoses Diagnosis Swelling of right hand - Primary documented in this encounter Care Teams Batteryman Relationship Specialty Start Date End Date Sapphire Montez MD PCP - General Internal Medicine 08/06/18 documented as of this encounter
--- OUTSIDE RECORDS SUMMARY | 2022-07-17 08:03 | XMS_ITS | Encounter Summary ---
:1960 Author Organization [facility] Address [address] [place] [address] Care Team Providers Name Role Phone Sapphire Montez MD Primary Care Provider [phone] Encounter Details Date Type Department Care Team Description 01/12/2021 Clinical Support [facility] Mobile Jeramy Maldonado En counter for Immunization Clinic Heladio Carter MD vaccination [facility] (Primary Dx) [address] [phone] Social History Tobacco Use Types Packs/Day Years [...] Primary documented in this encounter Care Teams Fiberglass Bonding Machine Tender Relationship Specialty Start Date End Date Sapphire Montez MD PCP - General Internal Medicine 08/06/18 documented as of this encounter
--- OUTSIDE RECORDS SUMMARY | 2022-07-17 08:03 | XMS_ITS | Encounter Summary ---
:1960 Author Organization [facility] Address [address] [place] [address] Care Team Providers Name Role Phone Sapphire Montez MD Primary Care Provider [phone] Encounter Details Date Type Department Care Team Description 04/29/2022 Travel Social History Tobacco Use Types Packs/Day [...] on filedocumented in this encounter Care Teams Retirement Village Manager Relationship Specialty Start Date End Date Sapphire Montez MD PCP - General Internal Medicine 08/06/18 documented as of this encounter
--- OUTSIDE RECORDS SUMMARY | 2022-07-17 08:04 | XMS_ITS | Encounter Summary ---
:1960 Author Organization [facility] Address [address] [place] [address] Care Team Providers Name Role Phone Sapphire Montez MD Primary Care Provider [phone] Reason for Visit Imaging (Routine) - Closed Specialty Diagnoses / Procedures Referred By Contact Refer red To Contact Radiology Diagnoses Postmenopausal bleeding System, Provider Not In Procedures Ultrasound Pelvis/Transvaginal Ultrasound Pelvis CHG ECHO,PELVIC (NONOBSTETRIC) [place] [address] Referral ID Status Reason Start Date Expiration Date Visits Requ ested Visits Authorized [id number] Closed 10/09/2020 1 1 Encounter Details Date Type Department Care Team Description 10/11/2020 Hospital Encounter [facility] [address] [place] [address], [address] [place] [address] Social History Tobacco Use Types [...] Procedure Name Priority Date/Time Associated Diagnosis Comme [facility] US Routine 10/11/2020 8:03 AM Postmenopausal bleedin g Results for this PELVIC/TRANSVAGINA EST procedure are in L the results section. documented in this encounter Results Ultrasound Pelvis/Transvaginal (10/11/2020 8:03 AM EST) Anatomical Region Laterality Modality Body Ultrasound Specimen (Source) Anatomical Collection Method Collection Time Re ceived Time Location / / Volume Laterality 10/11/2020 8:36 AM EST Impressions 10/11/2020 10:33 AM EST Uterine myometrial echo pattern heteroge neity small cyst in the submucosal region raises the possibility of adenomyosis. No endometrial echo complex lesion is no wade. Slight abnormal thickening of the endometrial echo complex. Ovaries are unremarkable. Dictated: Jere Jasmine MD On: 10/11/20 8:36 AM Electronically signed by: Jere Jasmine MD On: 10/11/2020 10:33 AM Transcribed: 10/11/2020 9:23 AM Norma Alexander Narrative 10/11/2020 10:33 AM EST INDICATION: Postmenopausal vaginal bleeding. COMPARISON: None. TECHNIQUE: Transabdominal / Endovaginal / Color Duplex / 3-Dimensional DATE OF LMP: ?? Postmenopausal FINDINGS: UTERUS: ??Size (cm): Length: 9.8, ??AP: 4.0, Width: 5.6 Myometrial Echo Pattern: Heterogeneous. Small cysts noted in the submucosal region. Contour: Normal. ENDOMETRIAL ECHO COMPLEX: The endometria l cavity is normally collapsed with no fluid distention. Width: 5.1 mm. Again noted small cysts in the submucosal region. RIGHT OVARY: Size (cm): Length: 1.9, ??AP: 0.9, ??Wid th: 2.2, Volume: 2.0 mL. Normal. LEFT OVARY: Size (cm): Length: 1.2, ??AP: 0.8, ??Wid th: 1.3, Volume 0.6 mL. Normal. OVARIAN DOPPLER: Blood flow is demonstra wade to both ovaries. ADNEXAL MASSES: None seen. CUL-DE-SAC: No free fluid present. Procedure Note Jere Jasmine MD - 10/11/2020Formatt ing of this note might be different from the original. INDICATION: Postmenopausal vaginal bleed ing. COMPARISON: None. TECHNIQUE: Transabdominal / Endovaginal / Color Duplex / 3-Dimensional DATE OF LMP: Postmenopausal FINDINGS: UTERUS: Size (cm): Length: 9.8, AP: 4.0, Width: 5.6 Myometrial Echo Pattern: Heterogeneous. Small cysts noted in the submucosal region. Contour: Normal. ENDOMETRIAL ECHO COMPLEX: The endometria l cavity is normally collapsed with no fluid distention. Width: 5.1 mm. Again noted small cysts in the submucosal region. RIGHT OVARY: Size (cm): Length: 1.9, AP: 0.9, Width: 2.2, Volume: 2.0 mL. Normal. LEFT OVARY: Size (cm): Length: 1.2, AP: 0.8, Width: 1.3, Volume 0.6 mL. Normal. OVARIAN DOPPLER: Blood flow is demonstra wade to both ovaries. ADNEXAL MASSES: None seen. CUL-DE-SAC: No free fluid present. IMPRESSION: Uterine myometrial echo pattern heteroge neity small cyst in the submucosal region raises the possibility of adenomyosis. No endometrial echo complex lesion is no wade. Slight abnormal thickening of the endometrial echo complex. Ovaries are unremarkable. Dictated: Jere Jasmine MD On: 10/11/20 8:36 AM Electronically signed by: Jere Jasmine MD On: 10/11/2020 10:33 AM Transcribed: 10/11/2020 9:23 AM Norma Alexander Provider Not In System IMG US PROCEDURES documented in this encounter Visit Diagnoses Diagnosis Postmenopausal bleeding documented in this encounter Care Teams Life Teacher Relationship Specialty Start Date End Date Sapphire Montez MD PCP - General Internal Medicine 08/06/18 documented as of this encounter
--- OUTSIDE RECORDS SUMMARY | 2022-07-17 08:04 | XMS_ITS | Encounter Summary ---
:1960 Author Organization [facility] Address [address] [place] [address] Care Team Providers Name Role Phone Sapphire Montez MD Primary Care Provider [phone] Reason for Visit Auth/Cert Specialty Diagnoses / Procedures Referred By Contact Refer red To Contact Diagnoses Strain of adductor muscle, fascia and tendon of unspecified thigh, subsequent encounter Procedures CLOSED REDUCTION PERCUTANEOUS PINNING LEFT HIP 7.3 SYNTHES JACOB SCREW ELINA FX TABLE Referral ID Status Reason Start Date Expiration Date Visits Requ ested Visits Authorized [id number] 1 1 Encounter Details Date Type Department Care Team Description 11/14/2019 - Hospital Encounter [facility] XSincere huggins, 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/[address] MD infarction) [address] (Primary Dx) [id number] [place] [phone] [address] [place] [address] Social History Tobacco Use Types Packs/Day Years [...] Sign Reading Time Taken Comments Blood Pressure 152/68 11/15/2019 1:29 PM EST Pulse 69 11/15/2019 1:29 PM EST Temperature 36.5 ??C (97.7 ??F) 11/15/2019 1:29 PM EST Respiratory Rate 18 11/15/2019 1:29 PM EST Oxygen Saturation 100% 11/15/2019 1:29 PM EST Inhaled Oxygen Concentration - - Weight 52.5 kg (115 lb 12.8 oz) 11/14/2019 10:06 AM EST Height 157.5 cm (5' 2) 11/14/2019 10:06 AM EST Body Mass Index 21.18 11/14/2019 10:06 AM EST documented in this encounter Discharge Instructions Discharge InstructionsSincere Mayfield MD - 11/14/2019 11:11 AM EST ORTHOPEDIC DISCHARGE INSTRUCTIONS: ?? Discharge Disposition: Patient is discharged to home. Keep leg elevated to minimize swelling apply ice to help with pain and swelling reduction. Dressing change: Daily dry dressing changes as needed starting 48-72 hours postop, if there is no drainage may leave wound open to air. No creams, lotions, ointments, oils on surgical wounds. No tub baths or soaking wound in water. Sutures/catalina: To be removed in two weeks postop DVT Prophylaxis: Not indicated Weight Bearing Status / Activity: Weight bearing as tolerated. Diet: Advance diet as tolerated Follow Up: Follow up in the office in 2 week(s). ?? Note: Please be aware that medications, including narcotics, will not be refilled on weekends or after 4:30 pm on week days. If you need a medication refill, please contact our office during normal business hours Thursday through Thursday. ?? If you have any questions or concerns prior to your follow up visit, please do no hesitate to call the office at ?? documented in this encounter Medications at Time of Discharge Medication Sig Dispensed Refills Start Date End Date coenzyme Q-10 100 mg Take 100 mg by 0 capsule mouth 1 (one) time each day. estradiol (VIVELLE-DOT) Place 1 patch on 0 0.075 mg/24 hr the skin 2 (two) times a week. nitroGLYCERIN (NITROSTAT) Place 0.4 mg under 0 0.4 mg SL tablet the tongue every 5 (five) minutes if needed for chest pain. PROGESTERONE MICRONIZED Take 100 mg by 0 ORALIndications: pt to mouth 1 (one) time confirm dosage DOS each day. ranolazine (RANEXA) 500 mg Take 500 mg by 0 12 hr tablet mouth 2 (two) times a day. Do not crush, chew, or split. sennosides (SENOKOT ORAL) Take 1 tablet by 0 mouth 1 (one) time each day. traZODone (DESYREL) 50 mg Take 25 mg by mouth 0 tabletIndications: 25-50mg every night. nightly dilTIAZem (CARDIZEM) 120 Take 240 mg by 0 11/19/2019 mg immediate release mouth 1 (one) time tablet each day. ibuprofen (ADVIL) 200 mg Take 200 mg by 0 08/16/2020 tablet mouth 2 (two) times a day if needed for mild pain. isosorbide dinitrate Take 5 mg by mouth 0 11/18/2019 (ISORDIL) 5 mg tablet 3 (three) times a day. rosuvastatin (CRESTOR) 20 Take 20 mg by mouth 0 11/19/2019 mg tablet 1 (one) time each day. documented as of this encounter Progress Notes Rahul Jacobson, PT - 11/15/2019 9:01 AM EST Physical Therapy Evaluation with Discharge Assessment: Principal Problem: left hip pain, stress fracture, s/p closed percutaneous pinning left hip Precautions: fall risk Weight bearing status:left lower extremity weight bearing as tolerated Based on the objective data below, patient presents with decreased strength, ROM, mobility, increased pain and is POD1 from L hip closed percutaneous pinning. Pt received supine in bed. Pt shows good ROM however limited with hip flexion on left. Pt performs all functional tasks with supervision to cga. Pt able to performs stairs in various handrail applications as well as cleared car training. Pt returns to room where LE exercises were reviewed and copy given. Pt questions were answered to her satisfaction. Pt encouraged to increase ambulation with aadc plans staff officer while hospitalized. Plan/Recommendations: Patient will be discharged from acute skilled PT services. Patient is independent with functional mobility Discharge Recommendations: Home with family support and with outpatient therapy Equipment Recommendations for discharge: RW Subjective: Patient stated: I feel good. I was planning to go up stairs on my butt. Objective: 11/15/19900 Visit Type Visit Type Evaluation General Start Time 826 Stop Time 900 Time Calculation (min) 34 min PT Last Seen By DL PT Received On 11/15/19 PT Frequency of Treatment One time visit only Family/Caregiver Present No PT Comments perc pinning, L hip WBAT, supv for all, OPPT when cleared by MD Patient Position Supine in bed;Elevated head of bed Pain Assessment Pain Classification Mild Precautions Weight Bearing Status WBAT L LE Home Living Type of Home House Lives With Spouse Home Access Stairs to enter without rails Entrance Stairs-Number of Steps 2 Home Layout Multi-level;1/2 bath on main level;Bed/bath upstairs Alternate Level Stairs-Number of Steps 16 Alternate Level Stairs-Rails Right Bathroom Shower/Tub Walk-in shower Bathroom Toilet Standard Bathroom Equipment None Home Equipment Rolling walker;Cane;Crutches Prior Level of Function Level of [place] Independent Receives Help From Family Cognition Orientation Level Oriented X4 Neurologic State Alert Cognition Follows commands Safety/Judgement Awareness of environment Perseveration No perseveration noted Range of Motion General Within functional limits Left Lower Extremity Hip ROM - Left Hip limited by pain Strength General Generally decreased, functional Left Lower Extremity Hip Left Hip Scoring Scale 3-/5 Sensation Light Touch No apparent deficits Integumentary Integumentary dressing to left hip Posture Postural Deviations None Postural Control WFL Balance Static Sitting Good Dynamic Sitting Good Static Standing Fair + Dynamic Standing Fair + Bed Mobility Supine to Sit Supervision;Additional time Sit to Supine Supervision;Additional time Scooting Modified independent Transfers Sit to Stand Stand-by assistance;Adaptive equipment;Additional time Stand to Sit Supervision;Additional time;Adaptive equipment Car Transfer Supervision Ambulation Distance (ft) 400 Ambulation - Level of Assistance Stand-by assistance;Supervision;Additional time;Adaptive equipment Equipment Rolling walker Gait Pattern Antalgic;[id number];Slow pace;Narrow base of support;Decreased step length Gait Training sequencing, use of RW, stride length Comments steady, improved to step over step with increased load as ambulation progressed. Stairs Number of Stairs 5x3 Handrail Use unilateral, bilateral, none Stairs - Level of Assistance Supervision;Contact guard assistance Equipment Used cane Pattern Step to Comments peformed bilateral handrails, single handrail and cane, no handrail with cane and MILL HOUSE SUPERVISOR. All steady with good technique Activity Additional Activities reviewed post op exercise Activity Tolerance good Mobility (AM-PAC) 6 Clicks Assessment Difficulty turning over in bed without using bedrails 4 - None Difficulty lying on back to sitting without using bedrails 4 - None Help from another to move to and from bed to chair 3 - A little Difficulty sitting and standing up from chair with arms 4 - None Help from another to walk in hospital room 3 - A little Help from another climbing 3-5 steps with railing 3 - A little Mobility 6 clicks (AM-PAC) score 21 Prognosis Patients Rehab Potential Excellent Problem List Decreased range of motion;Impaired balance;Decreased mobility;Pain Recommendation Recommendation Home with caregiver support Equipment Recommended Walker Functional Measure: [facility] AM-PAC '6 Clicks' V.2 Basic Mobility Inpatient Short Form: See flow sheet for details. RAW SCORE: 21 CMS 0 - 100% SCORE: 30% Patient/Family Education: safety, importance of mobility, plan of care. Goals: Pt stated goal: to be active without pain again. After session, patient was left: -in no apparent distress -call barker and phone within reach -bed/chair alarm activated Rahul Jacobson, PT Sincere Mayfield MD - 11/15/2019 7:33 AM EST Progress Upper Extremity ORTHO 1 Day Post-Op Subjective: Status Post closed reduction percutaneous pinning left hip femoral neck stress fracture Systemic or Specific Complaints:No Complaints and Redness Objective: Visit Vitals BP 122/73 (BP Location: Left upper arm, Patient Position: Lying) Pulse 69 Temp 97.5 ??F (36.4 ??C) (Oral) Resp 16 Ht 5' 2 (1.575 m) Wt 115 lb 12.8 oz (52.5 kg) SpO2 99% BMI 21.18 kg/m?? OB Status Postmenopausal Smoking Status Former Smoker BSA 1.52 m?? Temp Max: Temp (24hrs), Av.7 ??F (36.5 ??C), Min:97.3 ??F (36.3 ??C), Max:98.6 ??F (37 ??C) General: alert and in no distress Wound: wound clean and dry no evidence of infection PE LLE: sensation over skin intact, brisk capillary refill distally, able to move toes with little discomfort, PF/DF5/5, dressings CDI, compartments soft no signs of compartment syndrome Data Review Lab Results Component Value Date HGB 13.4 11/15/2019 HCT 42 11/15/2019 No results found for: INR, PT I & O: Intake/Output Summary (Last 24 hours) at 11/15/2019 0733 Last data filed at 11/15/2019 0624 Gross per 24 hour Intake 1695.38 ml Output 3085 ml Net -1389.62 ml @IODETAILS@ Assessment: Status Post 1 Day Post-Op closed reduction percutaneous pinning left hip femoral neck stress fracture Plan: VTE prophylaxis Continue current multimodal pain regimen Continue PT progression - WBAT LLE with walker cane or crutches as needed Dispo planning: Discharge home with self-care today Sincere Mayfield MD Adult Hip and Knee Reconstruction documented in this encounter H&P Notes Sincere Mayfield MD - 11/14/2019 11:07 AM EST H&P reviewed. The patient was examined and there are no changes to the H&P. Source Note - KAMALJIT Lopez - 11/14/2019 12:00 AM EST documented in this encounter Procedure Notes Randall Cerda RN - 11/11/2019 1:37 PM EST Pre-Surgery Medication Instructions: Medication Instructions ??? estradiol (VIVELLE-DOT) 0.075 mg/24 hr Per MD Instructions ??? ibuprofen (ADVIL) 200 mg tablet Per MD Instructions ??? isosorbide dinitrate (ISORDIL) 5 mg tablet Per MD Instructions ??? nitroGLYCERIN (NITROSTAT) 0.4 mg SL tablet Per MD Instructions ??? PROGESTERONE MICRONIZED ORAL Per MD Instructions ??? ranolazine (RANEXA) 500 mg 12 hr tablet Per MD Instructions ??? rosuvastatin (CRESTOR) 20 mg tablet Per MD Instructions ??? dilTIAZem (CARDIZEM) 120 mg immediate release tablet Per MD Instructions ??? traZODone (DESYREL) 50 mg tablet Per MD Instructions Be prepared to verify your medications on day of surgery. Do not bring valuables, jewelry or more than $5.00. Do not wear jewelry, body piercing, makeup, fingernail mauritian, or lipstick on day of surgery. If wear contact lenses, please wear glasses instead. If you have a case, bring it. Must have responsible adult to drive you home - may not take taxi alone. On day of surgery, take your medications as directed by surgeon/proceduralist. Oral/NPO intake guidelines. No gum, candy, or mints. Wear loose comfortable clothes on day of surgery. Appropriate clothing for specific procedure. It is advisable to have someone with you for 24 hrs after your surgery/procedure. Park in patient/visitor parking areas outside of Patient Registration. Bring a list of current medications. Do not bring medication bottles with you. Considering privacy/care of patients, we may restrict number of visitors allowed. Outpatient - family required to stay on hospital. Requested local company refrigerated truck driver/responsible alliance party stay in waiting room until notified by staff. Responsible Customer Service Dispatcher Name/Relationship: spouse James Patient Arrival Time: 0900 documented in this encounter Consult Notes JONATHON Harper - 11/15/2019 12:27 PM ESTAssociated Order(s): IP CONSULT TO CASE MANAGEMENT 11/15/2019 @ 0930 CM s/w PT and pt is cleared to d/c home with family and does not need home health.CM s/w pt and she is admitted for hip left hip close percutaneous pinning. Pt was independent beforeadmission. Pt states her is getting a walker and cane for her. Pt states family will be hometo assist her as needed and she does not want home health. She will f/u with surgeon as outpt. Pt states no needs from CM. JONATHON Harper [id number] documented in this encounter Nursing Notes Aminta Randolph RN - 11/15/2019 1:25 PM EST Pt feels well, no pain, no nausea pt would like to proceed with dc home at this time, as the daughter called the pharmacy again and Dr. Mayfield had called in a prescription for zofran as the pt had asked for. Dc instructions reviewed with the pt/ daughter and her at this time, all questions answered pt verbalizes understanding of all items discussed and will call her MD for any problems or concerns. Aminta Randolph RN - 11/15/2019 10:50 AM EST Pt states she is still having nausea and feels it is caused by the Ohlman, pt states she has taken percocet on 3 different occasions and it didn't make her nauseated. Call and message left with Dr Mayfield to make him aware as pt only has Ohlman at home for pain. 11:15: Dr Mayfield called at this time states he will have pain medication Percocet called into this pts pharmacy she will need to call her pharmacy before she leaves the hospital to make sure that there are meds for her to pickling grader. Pt made aware of this and at this time the pts / daughter wouldlike her to have something for nausea called in as well just in case, explained to the pt that her MD went to OR and a message was left for him regarding this. Pt updated. Pt and state they will not leave until they take a dose of Percocet here in the hospital in order to make sure pt does nothave the same reaction of nausea. Aminta Randolph RN - 11/15/2019 8:[address] Per pt Dr Mayfield was here and told pt she could dc home once she had voided, pt was up to the bathroom was able to void on her own. Per pt MD also stated he could dc home without seeing PT before she left. Discussed with the pt she would like to dc to home by 1030 am. documented in this encounter OR Notes Op Note - Sincere Mayfield MD - 11/15/2019 7:37 AM EST Operative Note Pre-op Diagnosis: * Strain of adductor muscle, fascia and tendon of unspecified thigh, subsequent encounter [S76.219D] Post-op Diagnosis: * Strain of adductor muscle, fascia and tendon of unspecified thigh, subsequent encounter [S76.219D] Procedure: * CLOSED REDUCTION PERCUTANEOUS PINNING LEFT HIP Laterality: Left Surgeon(s): Sincere Mayfield MD [employer] Science Teacher/Staff: New Vehicle Sales Consultant: Vinita Lopez RN Relief New Vehicle Sales Consultant: Corinne Farrar RN Relief Scrub: Karen Iverson Scrub Person: Aric Hoskins Assist: Elizabeth Chance Anesthesia: Local with Monitored Anesthesia Care Total IV Fluids: 500ml Estimated Blood Loss: 10 mL Drains: [REMOVED] Urethral Catheter Latex (Removed) Output (mL) 575 mL 11/14/2019 4:10 PM [REMOVED] Urethral Catheter 16 Fr. (Removed) Site Assessment Clean;Skin intact 11/15/2019 2:52 AM Collection Container Standard drainage bag 11/15/2019 2:52 AM Securement Method Securing device (Describe) 11/15/2019 2:52 AM Reason for Continuing Urinary Catherization Existing order for future date to remove catheter 11/15/2019 2:52 AM Implants: Implant Name Type Inv. Item Serial No. Construction Supervisor Lot No. [id number] No. Used SCREW BONE CANNULATED STAINLESS STEEL 16MM THREAD HEXAGONAL SOCKET 80 X 7.3MM MISCELLANEOUS IMPLANTSSCREW BONE CANNULATED STAINLESS STEEL 16MM THREAD HEXAGONAL SOCKET 80 X 7.3MM [employer] CV SYNTHES CMF NA Left 2 SCREW BONE CANNULATED STAINLESS STEEL 16MM THREAD HEXAGONAL SOCKET 75 X 7.3MM MISCELLANEOUS IMPLANTSSCREW BONE CANNULATED STAINLESS STEEL 16MM THREAD HEXAGONAL SOCKET 75 X 7.3MM Seafarers CV SYNTHES CMF NA Left 1 Specimens: No specimens were documented in this log. Complications: None; patient tolerated the procedure well. Disposition: PACU - hemodynamically stable. Condition: stable Indications: Patient is a 59-year-old female diagnosed with a left femoral neck stress fracture. Patient had no resolution in symptoms with conservative care for 2 months. Femoral neck stress fracture was diagnosed on MRI. Recommendation was made to proceed with percutaneous pinning optimize healing prevent fracture. Risks complications benefits of the surgery were explained informed consent was obtained patient decided to proceed with surgical intervention. Operation: Patient was identified the preoperative area by myself. Correct extremity was identified and marked. Patient was brought to the operating by anesthesia and transferred to the operating table. Time was called in accordance with protocol patient was identified procedure was confirmed laterality was confirmed. IV antibiotics were given within 30 min of the incision. Patient was then prepped and draped usual sterile orthopedic fashion. Anatomic layers were identified. A small longitudinal incision was made over lateral aspect of the femur. Three guidewires were placed up the femoral neck andprobed position was confirmed I utilizing fluoroscopic imaging on orthogonal views. Three cannulated screws were then placed over the guidewires. Appropriate position of the implants was once again confirmed on orthogonal views with fluoroscopic imaging. Guidewires were removed the wound was thoroughly irrigated and infiltrated with local injuries with core percent Marcaine. Layered closure was then performed and wound was dressed with clean dressings. Final patient was then woken from anesthesia transferred to hospital bed sent to the postanesthesia care unit having tolerated the procedure withoutany known complications. Plan: Patient may be weight-bearing as tolerated with cane walker or crutches as needed. DVT prophylaxis is not indicated. Patient to follow up in 2 weeks for wound check. Sincere Mayfield MD Perioperative Nursing Note - Norma Maier RN - 11/14/2019 5:09 PM EST James, pt's spouse notified that pt left to room 5066. Pt's personal belongings on bed for transport. Perioperative Nursing Note - Norma Maier RN - 11/14/2019 4:31 PM EST SBAR report given to Aissatou Hill. Perioperative Nursing Note - Norma Maier RN - 11/14/2019 4:[address] Steel at bedside to talk to pt to address questions/ concerns about anesthesia today. Spinal wearing off slowly. Pt able to lift R knee off the bed but can only slightly lift up L knee. Pt states LLE more numb than RLE; both legs with numbness and tingling. Perioperative Nursing Note - Norma Maier RN - 11/14/2019 3:[address] Mayfield returned page, order obtained for admit for Observation. Perioperative Nursing Note - Norma Maier RN - 11/14/2019 2:46 PM EST Rodriguez emptied of 1200 mL clear yellow urine. Pt's abdomen soft, non tender, and non distended. Perioperative Nursing Note - Norma Maier RN - 11/14/2019 2:40 PM EST Rodriguez catheter inserted and pt states feeling instant relief of abdominal pain. Perioperative Nursing Note - Norma Maier RN - 11/14/2019 2:35 PM EST Bladder scan performed, > 999 mL present in pt's bladder. Attempt to call OR [address] Mayfield but no answer. Anesthesia, Dr Steel notified by Lanie and order obtained for indwelling catheter. Pt continues to have numbness and tingling in both legs and can only lift knees off the bed slightly. Perioperative Nursing Note - Norma Maier RN - 11/14/2019 2:33 PM EST Pt c/o abdominal pain. Lower abdomen distended and firm. Pt states feeling urge to void but not being able to feel emptying bladder in PACU on bedpan of a small amount of urine. Perioperative Nursing Note - Lynn Kuo RN - 11/14/2019 2:30 PM EST Report to Evelyne WILDER SDS, pt in bed. She has voided 100 mls yellow urine in bedpan and an additional moderate amount on pad under aragon. Perioperative Nursing Note - Lynn Kuo RN - 11/14/2019 2:06 PM EST Pt now able to move both her feet, she states she has mild feelings when I touch her legs. She states she has normal feelings at her thighs and stomach. She is on bed aragon trying to void but is not successful Brief Op Note - Sincere Mayfield MD - 11/14/2019 11:49 AM EST Brief Operative Note Pre-op Diagnosis: Left femoral neck stress fracture Post-op Diagnosis: Same Procedure: * CLOSED REDUCTION PERCUTANEOUS PINNING LEFT HIP Laterality: Left Surgeon(s): Sincere Mayfield MD [employer] Science Teacher/Staff: New Vehicle Sales Consultant: Vinita Lopez RN Relief New Vehicle Sales Consultant: Corinne Farrar RN Relief Scrub: Karen Iverson Scrub Person: Aric Hoskins Assist: Elizabeth Chance Anesthesia: Local with Monitored Anesthesia Care Total IV Fluids: 500ml Estimated Blood Loss: 10 mL Drains: Urethral Catheter 16 Fr. (Active) Site Assessment Clean;Skin intact 11/14/2019 9:07 PM Collection Container Standard drainage bag 11/14/2019 9:07 PM Securement Method Securing device (Describe) 11/14/2019 9:07 PM Reason for Continuing Urinary Catherization Existing order for future date to remove catheter 11/14/2019 9:07 PM Implants: Implant Name Type Inv. Item Serial No. Construction Supervisor Lot No. LRB No. Used SCREW BONE CANNULATED STAINLESS STEEL 16MM THREAD HEXAGONAL SOCKET 80 X 7.3MM MISCELLANEOUS IMPLANTSSCREW BONE CANNULATED STAINLESS STEEL 16MM THREAD HEXAGONAL SOCKET 80 X 7.3MM JNJ SYNTHES CMF NA Left 2 SCREW BONE CANNULATED STAINLESS STEEL 16MM THREAD HEXAGONAL SOCKET 75 X 7.3MM MISCELLANEOUS IMPLANTSSCREW BONE CANNULATED STAINLESS STEEL 16MM THREAD HEXAGONAL SOCKET 75 X 7.3MM JNJ SYNTHES CMF NA Left 1 Specimens: No specimens were documented in this log. Complications: None; patient tolerated the procedure well. Disposition: PACU - hemodynamically stable. Condition: stable Sincere Mayfield MD documented in this encounter Plan of Treatment Not on filedocumented as of this encounter Procedures Procedure Name Priority Date/Time Associated Comments Diagnosis HEMOGLOBIN AND Routine 11/15/2019 5:29 Results fo r this HEMATOCRIT, BLOOD AM EST procedure are in the results section. BASIC METABOLIC PANEL Routine 11/15/2019 5:29 Res ults for this AM EST procedure are i n the results section. INCENTIVE SPIROMETRY RT Routine 11/14/2019 10:01 PM EST INCENTIVE SPIROMETRY RT Routine 11/14/2019 10:01 PM EST INCENTIVE SPIROMETRY RT Routine 11/14/2019 10:01 PM EST INCENTIVE SPIROMETRY RT Routine 11/14/2019 10:01 PM EST XR HIP INTRAOPERATIVE Routine 11/14/2019 12:17 Old ID (myocard ial Results for this LEFT PM EST infarction) procedure are i n the results section. CURTIS PINNING OF HIP 11/14/2019 10:51 Strain of addu ctor AM EST muscle, fascia and tendon of unspecified thigh, subsequent encounter documented in this encounter Results (ABNORMAL) Basic Metabolic Panel (11/15/2019 5:29 AM EST) Analysis Performed At Patho logist Time Signature Glucose 110 (H) 65 - 105 LAB CHEMISTRY 11/15/2019 [facility] mg/dL METHOD 6:26 AM EST BUN 6 (L) 7 - 22 LAB CHEMISTRY 11/15/2019 [facility] mg/dL METHOD 6:26 AM EST Creatinine 0.7 0.7 - 1.2 LAB CHEMISTRY 11/15/2019 [facility] mg/dL METHOD 6:26 AM EST Sodium 141 137 - 145 LAB CHEMISTRY 11/15/2019 [facility] mmol/L METHOD 6:26 AM EST Potassium 4.3 3.5 - 5.3 LAB CHEMISTRY 11/15/2019 [facility] mmol/L METHOD 6:26 AM EST Chloride 107 98 - 107 LAB CHEMISTRY 11/15/2019 [facility] mmol/L METHOD 6:26 AM EST CO2 26 22 - 30 LAB CHEMISTRY 11/15/2019 [facility] mmol/L METHOD 6:26 AM EST Calcium 9.3 8.4 - LAB CHEMISTRY 11/15/2019 [facility] 10.2 METHOD 6:26 AM EST mg/dL eGFR >60 >60 LAB CHEMISTRY 11/15/2019 [facility] mL/min/1. METHOD 6:26 AM EST 73m*2 Anion Gap (K+ 8 3 - 12 LAB CHEMISTRY 11/15/2019 [facility] excluded) mmol/L METHOD 6:26 AM EST Specimen Anatomical Collection Method / Collection Time Recei debbie Time (Source) Location / Volume Laterality Blood Venous blood / Venipuncture / 11/15/2019 5:29 11/15/20 19 5:40 Unknown Unknown AM EST AM EST Sincere Mayfield MD LAB BLOOD ORDERABLES Performing Organization Address City/State/[facility] Phon e Number [facility] [address] [place] [address] [phone] Hemoglobin and hematocrit, blood (11/15/2019 5:29 AM EST) P athologist Signature Hemoglobin 13.4 11.0 - 15.0 LAB HEMETOLOGY 11/15/2019 [facility] g/dL METHOD 5:46 AM EST Hematocrit 42 35 - 45 % LAB HEMETOLOGY 11/15/2019 [facility] METHOD 5:46 AM EST Specimen Anatomical Collection Method / Collection Time Recei debbie Time (Source) Location / Volume Laterality Blood Venous blood / Venipuncture / 11/15/2019 5:29 11/15/20 19 5:40 Unknown Unknown AM EST AM EST Narrative [facility] - 11/15/2019 5:46 AM EST Call surgeon if hemoglobin less than 9.0 . Sincere Mayfield MD LAB BLOOD ORDERABLES Performing Organization Address City/State/ZIP Code Phon e Number [facility] [address] [place] [address] [phone] X-ray hip intraoperative left (11/14/2019 12:17 PM EST) Anatomical Region Laterality Modality Lower Extremities, Hip Left Digital Radiograp hy Specimen (Source) Anatomical Collection Method Collection Time Re ceived Time Location / / Volume Laterality 11/14/2019 1:48 PM EST Impressions 11/14/2019 2:01 PM EST Please see the above. Dictated: Dima Pineda MD On: 2018 1:48 PM Electronically signed by: Dima crane MD On: 11/14/2019 2:01 PM Transcribed: 11/14/2019 1:56 PM Darlin nicole Narrative 11/14/2019 2:01 PM EST INDICATION: Left hip nailing. FINDINGS: Single frontal view of the left hip was obtained from the OR. Three screws traverse the left femoral neck without complicating features. Well-positioned left hip joint space. Procedure Note Dima Pineda MD - 11/14/2019Formatt ing of this note might be different from the original. INDICATION: Left hip nailing. FINDINGS: Single frontal view of the left hip was obtained from the OR. Three screws traverse the left femoral neck without complicating features. Well-positioned left hip joint space. IMPRESSION: Please see the above. Dictated: Dima Pineda MD On: 2018 1:48 PM Electronically signed by: Dima crane MD On: 11/14/2019 2:01 PM Transcribed: 11/14/2019 1:56 PM Darlin nicole Sincere Mayfield MD IMG FLUOROSCOPY PROCEDURES documented in this encounter Visit Diagnoses Diagnosis Old ID (myocardial infarction) - Primary Old myocardial infarction Plan of Care - Juany Kuo RN - 11/15/2019 3:35 AM EST Goals: Problem: Pain Goal: Patient's pain/discomfort is manageable 11/15/2019 0335 by Juany Kuo RN Outcome: Progressing 11/14/2019 1823 by Shelby Garner RN Outcome: Progressing Problem: Safety Goal: Patient will be injury free during hospitalization 11/15/2019334 by Juany Kuo RN Outcome: Progressing 11/14/2019 182 by Shelby Garner RN Outcome: Progressing Goal: Patient will remain free of falls 11/15/2019334 by Juany Kuo RN Outcome: Progressing 11/14/20191822 by Shelby Garner RN Outcome: Progressing Problem: Daily Care Goal: Daily care needs are met 11/15/2019334 by Juany Kuo RN Outcome: Progressing 11/14/2019 182 by Shelby Garner RN Outcome: Progressing Problem: Psychosocial Needs Goal: Demonstrates ability to cope with hospitalization/illness 11/15/2019334 by Juany Kuo RN Outcome: Progressing 11/14/20191822 by Shelby Garner RN Outcome: Progressing Goal: Collaborate with patient/family/caregiver to identify patient specific goals for this hospitalization 11/15/2019334 by Juany Kuo RN Outcome: Progressing 11/14/2019 182 by Shelby Garner RN Outcome: Progressing Problem: Discharge Barriers Goal: Patient's discharge needs are met 11/15/2019334 by Juany Kuo RN Outcome: Progressing 11/14/2019 182 by Shelby Garner RN Outcome: Progressing Problem: Safety Adult - Fall Goal: Free from fall injury 11/15/2019334 by Juany Kuo RN Outcome: Progressing 11/14/20191822 by Shelby Garner RN Outcome: Progressing Problem: Knowledge Deficit Goal: Patient/family/caregiver demonstrates understanding of disease process, treatment plan, medications, and discharge instructions Outcome: Progressing Problem: Activity Intolerance/Impaired Mobility Goal: Mobility/activity is maintained at optimum level for patient Outcome: Progressing Problem: Potential For Peripheral Neurovascular Impairment Goal: Extremity color, movement, and sensation are maintained or improved Outcome: Progressing Identify possible barriers to meeting goals/advancing plan of care: Stability of the patient: Moderately Stable - Low risk of patient condition declining or worsening End of Shift Summary: Pt's progressing towards goals, increase activity, effective pain control. Plan of Care - Shelby Garner RN - 11/14/2019 6:23 PM EST Goals: Identify possible barriers to meeting goals/advancing plan of care: pain Stability of the patient: Moderately Stable - Low risk of patient condition declining or worsening End of Shift Summary: progressing towards goals documented in this encounter Administered Medications Inactive Administered Medications - up to 3 most recent administrations Medication Order MAR Action Action Date Dose Rate Site acetaminophen (TYLENOL) suppository 650 mg 650 mg, rectal, Every 4 hours PRN, mild pain, Starting on Thu11/14/19 at 2200, Give if unable to take oral. acetaminophen (TYLENOL) tablet 650 mg 650 mg, oral, Every 4 hours PRN, mild pain, Starting o n Thu11/14/19 at 2200 aspirin delayed release tablet 81 mg Given 11/15/2019 6:20 AM EST 81 mg 81 mg, oral, 2 times daily with meals, First dose on Thu11/15/19 at 0700, Indications: dysmenorrhea, Blood clot prevention after joint replacement HYDROcodone-acetaminophen (NORCO) 5-325 mg Given 11/14 6:45 PM EST 1 tablet 1 tablet 1 tablet, oral, Every 4 hours PRN, moderate pain, Starting on Thu11/14/19 at 1715 HYDROcodone-acetaminophen (NORCO) 7.5-325 Given 2018 10:44 AM EST 1 tablet mg 1 tablet 1 tablet, oral, Every 4 hours PRN, moderate pain, Starting on Thu11/14/19 at 2200 Given 11/15/2019 6:46 AM EST 1 tablet Given 11/15/2019 6:20 AM EST 1 tablet lactated Ringer's infusion Continued from Pre 11/14/2019 11:11 AM EST 75 mL/hr, intravenous, Continuous, Starting on Thu11/14/19 at 0945, IV Fluids to be administered only in pre-op holding or cotton buyer to OR if the patient is in the ICU. New Bag 11/14/2019 10:30 AM EST 75 mL/hr 75 mL/hr morphine PF 2 mg/mL injection 4 mg Given 11/15/2019 2:53 AM EST 4 mg 4 mg, intravenous, Every 4 hours PRN, severe pain , Starting on Thu11/14/19 at 2200, If unable to take oral. Given 11/14/2019 11:00 PM EST 4 mg ondansetron (ZOFRAN) injection 4 mg Given 11/15/2019 10:53 AM EST 4 mg 4 mg, intravenous, Every 6 hours PRN, nausea, vomiting, Starting on Thu11/14/19 at 2200 ondansetron (ZOFRAN) injection 4 mg Given 11/14/2019 10:19 PM EST 4 mg 4 mg, intravenous, Every 6 hours PRN, nausea, vomiting, if ubable to tolerate PO zofran, Starting on Thu11/14/19 at 2145 oxyCODONE (ROXICODONE) immediate release tablet Given 11/14/2019 3:18 PM EST 5 mg 5 mg 5 mg, oral, Every 6 hours PRN, severe pain , Starting on Thu11/14/19 at 1243, PACU (only), For use once the patient is transitioned to oral. oxyCODONE-acetaminophen (PERCOCET) 5-325 Given 11/15/2019 12 :31 PM EST 1 tablet mg 1 tablet 1 tablet, oral, Every 4 hours PRN, moderate pain, Starting on Thu11/15/19 at 1221 promethazine (PHENERGAN) injection 6.25 mg 6.25 mg, intravenous, Every 6 hours PRN, nausea, vomiting, Second Line, Starting on Thu11/14/19 at 2146, If given IV, dilute in 10 mL of NS. Do not inject into hand/wrist. Max rate: 25 mg/min. sodium chloride 0.9 Rate/Dose Verify 11/15/2019 6:24 AM 100 mL/hr 10 0 mL/hr percent infusion EST 100 mL/hr, intravenous, Continuous, Starting on Thu11/14/19 at 2215 Restarted 11/14/2019 11:02 PM EST 100 mL/hr 100 mL/hr New Bag 11/14/2019 11:01 PM EST 100 mL/hr 100 mL/hr documented in this encounter Active and Recently Administered Medications Times are shown in EST. Scheduled Medication Order 11/13/2019 11/14/2019 11/15/2019 aspirin delayed release tablet 81 mg 0620 (Given - Provider: Juany Kuo RN) 81 mg, oral, 2 times daily with meals, F irst dose on Thu11/15/19 at 0700, Indications: dysmenorrhea, Blood clot prevention after joint replacement ceFAZolin in dextrose 5 % (ANCEF) 2 g IVPB 100 mL (COMPLETED ) 1122 (Given - Provider: Andrei Laureano CRNA) 2 g, intravenous, at 200 mL/hr, Administ er over 0.5 Hours, Once, On Thu11/14/19 at 0945, For 1 dose, Pre-op, Administer within 1 hour of surgical incision. premix bag, Reason for therapy: Surgical Prophylaxis docusate sodium (COLACE) capsule 100 mg 2215 (Not Given - Provider: Juany Kuo RN - Reason: Patient/family refused) 1000 (Not Given - Provider: Aminta Randolph, TINA - Reason: Patient/family refused) 100 mg, oral, 2 times daily, First dose on Thu11/14/19 at 2215 Continuous Medication Order 11/13/2019 11/14/2019 11/15/2019 lactated Ringer's infusion 0945 (Due)103 0 (New Bag - Provider: Danuta Cates)1111 (Continued from Pre - Provider: Andrei Laureano CRNA)1231 (Stopped - Provider: Andrei Laureano CRNA) 75 mL/hr, intravenous, at 75 mL/hr, Cont inuous, Starting on Thu11/14/19 at 0945, IV Fluids to be administered only in pre-op holding or cotton buyer to OR if the patient is in the ICU. sodium chloride 0.9 percent infusion 230 1 (New Bag - Provider: Juany Kuo RN)2301 (Paused - Provider: Juany Kuo RN)2302 (Restarted - Provider: Juany Kuo RN) 0624 (Rate/Dose Verify - Provider: Enedina Kuo RN)0800 (Stopped - Provider: Aminta Randolph RN) 100 mL/hr, intravenous, at 100 mL/hr, Co ntinuous, Starting on Thu11/14/19 at 2215 PRN Medication Order 11/13/2019 11/14/2019 11/15/2019 acetaminophen (TYLENOL) suppository 650 mg(Linked Group 1) 650 mg, rectal, Every 4 hours PRN, mild pain, Starting on Thu11/14/19 at 2200, Give if unable to take oral. acetaminophen (TYLENOL) tablet 650 mg(Linked Group 1) 650 mg, oral, Every 4 hours PRN, mild pain, Starting on 10/24 at 2200 bupivacaine PF (MARCAINE) 0.5 % (5 mg/mL) injection (CANCELE D) 1208 (Given - Provider: Sincere Mayfield MD) As needed, Starting on Thu11/14/19 at 1208, Intra-op diphenhydrAMINE (BENADRYL) capsule 25 mg 25 mg, oral, Every 6 hours PRN, itching, Starting Thu11/14/19 a t 2200 HYDROcodone-acetaminophen (NORCO) 5-325 mg 1 tablet (CANCELE D) 1845 (Given - Provider: Shelby Garner, TINA) 1 tablet, oral, Every 4 hours PRN, moder ate pain, Starting on Thu11/14/19 at 1715 HYDROcodone-acetaminophen (NORCO) 7.5-325 mg 1 tablet (CANCELED) 0620 (Given - Provider: Juany Kuo RN)0646 (Given - Provider: Juany Kuo RN)1044 (Given - Provider: Aminta Randolph, TINA) 1 tablet, oral, Every 4 hours PRN, moder ate pain, Starting on Thu11/14/19 at 2200 LORazepam (ATIVAN) tablet 0.5 mg 0.5 mg, oral, Every 6 hours PRN, anxiety, Starting Thu11/14/19 at 2200 morphine PF 2 mg/mL injection 4 mg 2300 (Given - Provider: Juany Kuo RN) 0253 (Given - Provider: Juany crane RN) 4 mg, intravenous, Every 4 hours PRN, se laura pain , Starting on Thu11/14/19 at 2200, If unable to take oral. naloxone (NARCAN) 0.4 mg/mL injection 0.1 mg 0.1 mg, intravenous, As needed, respirat ory depression, Starting Thu11/14/19 at 2200, If respiratory rate is less than 8 breaths per minute or patient is difficult to arouse, administer naloxone slow I V push, stop all narcotics, and contact physician. Repeat as ordered every 2-3 minutes until patient's respiratory rate is greater than 12 breaths per minute. ondansetron (ZOFRAN) injection 4 mg 1053 (Given - Provider: Aminta Randolph RN) 4 mg, intravenous, Every 6 hours PRN, na usea, vomiting, Starting on Thu11/14/19 at 2200 ondansetron (ZOFRAN) injection 4 mg 2219 (Given - Provider: Juany Kuo RN) 1049 (Not Given - Provider: Aminta Randolph RN - Reason: Other - Comment: see duplicate order) 4 mg, intravenous, Every 6 hours PRN, na usea, vomiting, if ubable to tolerate PO zofran, Starting on Thu11/14/19 at 2145 oxyCODONE (ROXICODONE) immediate release tablet 5 mg (CANCEL ED) 1518 (Given - Provider: Norma Maier RN) 5 mg, oral, Every 6 hours PRN, severe pa in , Starting on Thu11/14/19 at 1243, PACU (only), For use once the patient is transitioned to oral. oxyCODONE-acetaminophen (PERCOCET) 5-325 mg 1 tablet 1231 (Given - Provider: Aminta Randolph RN) 1 tablet, oral, Every 4 hours PRN, moder ate pain, Starting on Thu11/15/19 at 1221 polyethylene glycol (GLYCOLAX) packet 17 g 17 g, oral, Daily PRN, constipation, con stipation, Starting Thu11/14/19 at 2200, 1st line for treatment of constipation - give scheduled if no bowel movement in past 48 hours promethazine (PHENERGAN) injection 6.25 mg 6.25 mg, intravenous, Every 6 hours PRN, nausea, vomiting, Second Line, Starting on Thu11/14/19 at 2146, If given IV, dilute in 10 mL of NS. Do not inject into hand/wrist. Max rate: 25 mg/min. sodium chloride (NS) 0.9 % irrigation solution (CANCELED) 1149 (Given - Provider: Sincere Mayfield MD) As needed, Starting on Thu11/14/19 at 1149, Intra-op Linked Groups Order Group 1: acetaminophen (TYLENOL) tablet 650 mgJump to med 650 mg, oral, Every 4 hours PRN, mild pa in, Starting on Thu11/14/19 at 2200 Or acetaminophen (TYLENOL) suppository 650 mgJump to med 650 mg, rectal, Every 4 hours PRN, mild pain, Starting on Thu11/14/19 at 2200
Give if unable to take oral.
documented in this encounter Care Teams Transfill Technician Relationship Specialty Start Date End Date Sapphire Montez MD PCP - General Internal Medicine 08/06/18 documented as of this encounter
--- OUTSIDE RECORDS SUMMARY | 2022-07-17 08:04 | XMS_ITS | Encounter Summary ---
:1960 Author Organization [facility] Address [address] [place] [address] Care Team Providers Name Role Phone Sapphire Montez MD Primary Care Provider [phone] Reason for Visit Auth/Cert Specialty Diagnoses / Procedures Referred By Contact Refer red To Contact Procedures ARTHROSCOPY KNEE, partial medial MENISCECTOMY Referral ID Status Reason Start Date Expiration Date Visits Requ ested Visits Authorized [id number] 1 1 Encounter Details Date Type Department Care Team Description 08/24/2020 Surgery [facility] Sincere Goodwin i, MD ARTHROSCOPY KNEE, [facility] [place] partial medial [address] [facility] MENISECTOMY [address] [place] [id number] [phone] (Wo rk) Surgery Details Date/Time Status Location OR Service Patient Class Case Case Trauma Class Type Case? 08/24/20 7:30 Posted [facility] OR OR 02 Orthopedics Outpatient AM Panel 1 Procedure [facility]RB Anes Op Region Wound Class Commen ts ARTHROSCOPY KNEE, Left General Knee Class I/ Clean ART HROSCOPY KNEE, partial medial partial me dial MENISECTOMY MENISECTOMY Surgeon Surgeon Role Service Panel Sincere Mayfield MD Primary Orthopedics 1 documented in this encounter Social History Tobacco Use Types Packs/Day Years [...] been in contact with No / Unsure 08/24/2020 6:48 AM EDT someone who was confirmed or suspected to have Coronavirus / COVID-19? documented as of this encounter Last Filed Vital Signs Vital Sign Reading Time Taken Comments Blood Pressure 148/81 08/24/2020 7:15 AM EDT Pulse 56 08/24/2020 7:15 AM EDT Temperature 36.3 ??C (97.4 ??F) 08/24/2020 6:51 AM EDT Respiratory Rate 16 08/24/2020 7:15 AM EDT Oxygen Saturation 100% 08/24/2020 7:15 AM EDT Inhaled Oxygen Concentration - - Weight 51.3 kg (113 lb 2 oz) 08/24/2020 7:25 AM EDT Height 157.5 cm (5' 2) 08/17/2020 2:03 PM EDT Body Mass Index 20.69 08/21/2020 2:54 PM EDT documented in this encounter Discharge Instructions Discharge InstructionsEdwina Todd RN - 08/24/2020 9:13 AM EDT Images from the original note were not included. You received a medication during surgery called Motrin at 07:10 am. Do not take Ibuprofen, Advil or Aleve within 6 hours. You were given Tylenol 1000mg at 07:10 am. Do not take any additional Acetaminophen or Tylenol products for 6 hours. This includes narcotic pain medications such as Percocet, [place] and Vicodin. Roxicodone 5mg PO given at 09:12am. Scopolamine (Absorbed through the skin) Scopolamine ([id number]) Treat nausea and vomiting. Brand Name(s):Transderm Scop There may be other brand names for this medicine. When This Medicine Should Not Be Used: You should not use this medicine if you have had an allergic reaction to scopolamine, or if you havenarrow angle glaucoma. How to Use This Medicine: Patch Your doctor will tell you how many patches to use, where to apply them, and how often to apply them.Do not use more patches or apply them more often than your doctor tells you to. The anesthesia department recommends to leave the patch on for 24 hours from the time it was placed for surgery. Read the following instructions. Talk to your doctor or pharmacist if you have any questions. After you take off the patch, wash the place where the patch was and your hands thoroughly. Only one patch should be used at any time. How to Dispose of This Medicine: Fold the used patch in half with the sticky sides together. Throw any used patch away so that children or pets cannot get to it. You will also need to throw away old patches after the expiration date has passed. Keep all medicine out of the reach of children. Never share your medicine with anyone. Drugs and Foods to Avoid: Ask your doctor or pharmacist before using any other medicine, including [id number]-iwr-qnqbahc medicines,vitamins, and herbal products. Tell your doctor if you use anything else that makes you sleepy. Some examples are allergy medicine,narcotic pain medicine, and alcohol. Do not drink alcohol while you are using this medicine. Warnings While Using This Medicine: Make sure your doctor knows if you are or , or if you have glaucoma, prostate problems, trouble urinating, blocked bowels, liver disease, kidney disease, or a history of seizures or mental illness. This medicine can cause blurring of vision and other vision problems if it comes in contact with theeyes. This medicine may also cause problems with urination. If any of these reactions occur, remove the patch and call your doctor right away. This medicine may make you dizzy or drowsy. Avoid driving, using machines, or doing anything else that could be dangerous if you are not alert. If you plan to participate in underwater sports, this medicine may cause disorienting effects. If this is a concern for you, talk with your doctor. This medicine may make you sweat less and cause your body to get too hot. Be careful in hot weather,when you are exercising, or if using a sauna or whirlpool. Tell any doctor or dentist who treats you that you are using this medicine. This medicine may affectcertain medical test results. Skin bangura have been reported at the patch site in several patients wearing an aluminized transdermal system during a magnetic resonance imaging scan (MRI). Because Transderm Sc?p?? contains aluminum, it is recommended to remove the system before undergoing an MRI. Possible Side Effects While Using This Medicine: Call your doctor right away if you notice any of these side effects: Allergic reaction: Itching or hives, swelling in your face or hands, swelling or tingling in your mouth or throat, chest tightness, trouble breathing Blurred vision. Confusion or memory loss. Fast, slow, or uneven heartbeat. Lightheadedness, dizziness, drowsiness, or fainting. Seeing, hearing, or feeling things that are not there. Severe eye pain. Trouble urinating. If you notice these less serious side effects, talk with your doctor: Dry mouth. Dry, itchy, or red eyes. Restlessness. Skin rash or redness. If you notice other side effects that you think are caused by this medicine, tell your doctor. Call your doctor for medical advice about side effects. You may report side effects to FDA at 2-558-BEV-8382 ?? Copyright [employer] 2018 Generated on Friday, May 25, 2018 9:02:21 AM It is the intent of [facility] that this document be used as a resource for general patient education. The information included in this document should not take the place of instructions provided to you by your physician. ORTHOPEDIC DISCHARGE INSTRUCTIONS: ?? Discharge Disposition: Patient [...] removed in two weeks postop DVT Prophylaxis: Take one 81mg Aspirin tablet twice daily with food for a total of 2 months. Weight Bearing Status / Activity: Weight bearing [...] no hesitate to call the office at [facility] Care [facility] Safety ??? Follow all discharge instructions provided by your surgeon, including any verbal instructions not provided on paper. ??? For any problems relating to your surgical recovery, call your surgeons office; if it is after hours, your surgeons answering service will assist you. If you are unable to reach your surgeon, or feel you have an emergency, you should call 911 or go to the nearest Emergency Room. ??? If you have any questions regarding your aftercare instructions, call your surgeons office for clarification. ??? Certain surgical procedures may make it difficult to urinate following surgery. If you experience any difficulty or have not urinated within 8 hours of your surgery, contact you surgeon for medicaladvice. Some medications we administer can temporarily change the color of your urine to blue or orange. This should not cause alarm and will subside. ??? Due to the medication you received today for surgery, do not drive within 24 hours. If you are taking narcotic medication while at home, you should take additional safety precautions, including notdriving. You should have someone home with you for the next 24 hours. ??? Delay making critical personal or business decisions for the next 24 hours. ??? If during your stay with us you were identified as being at risk for sleep apnea, we recommend you notify your primary care physician for further evaluation. Pain Medication ??? Do not drink alcohol while taking pain medication. We recommend that you take your narcotic medication with food to avoid nausea. Also, narcotic medication can cause constipation, so we recommend you consider taking a stool softener. Signs / Symptoms of Infection: ??? Heat, redness, pus drainage, red streak, foul odor at surgical site, fever above 100.4, shaking,chills ??? Tenderness or swelling in the armpit, groin or neck ??? Surgical pain no longer controlled by pain medication ??? Burning or pain with urination ??? Coughing up colored sputum Blood Clot Prevention: ??? Keep active - Exercise legs with ankle pumps/[place] if allowed by doctor ??? Drink plenty of fluids to remain hydrated ??? Take your blood thinner medication, if directed by your doctor ??? Call your surgeon if you develop any of these symptoms: Tenderness, swelling, redness, discoloration or heat in the calf ??? Seek immediate medical attention if you experience a pale or cool leg, you are coughing up blood, short of breath or having chest pain. Use of Ice Therapy, if Directed by Surgeon: ??? Ice causes blood vessels to constrict (get smaller), which helps decrease inflammation (swelling, pain and redness). Cover the site with a barrier, such as a towel. Never apply ice directly to bareskin due to the risk of frostbite. Ice should be used intermittently as needed. Apply for 20-30 minutes, then remove for 20-30 minutes, unless instructed differently by your surgeon. Never sleep with an ice pack due to the risk for injury. ?? documented in this encounter Medications at [...] night. nightly documented as of this encounter Procedure Notes Marcos Appiah RN - 08/17/2020 2:04 PM EDT Images from the original note were not included. PRE-OPERATIVE INSTRUCTIONS ??? The [facility] staff will contact you the business day before yoursurgery to provide your day of surgery arrival time. If you have not heard from us by 4 p.m., call [phone]. ??? Do not eat solid foods or drink non-clear liquids after midnight. You may have clear liquids up to 2 hours prior to arrival. Anesthesia approved clear liquids are water, apple juice, white grape juice, tea and black coffee. Nothing in your mouth within 2 hours of arrival. This includes gum, candy/mints and water. ??? Follow your surgeon???s instructions for medication use on the day of surgery. It is important to take your heart, blood pressure and acid reflux medications. Use inhalers at home and bring your rescue inhaler with you on the day of surgery. Do not take any vitamins and diabetic medications the day of surgery. ??? Follow instruction from your surgeon on when to stop and restart your prescription blood thinning medication and Aspirin. Often these medications must be stopped prior to surgery. You may be referred to your prescribing physician for instruction. The prescribing physician should be aware of any alteration in medication use. Pre-Surgery Medication Instructions: Medication Instructions ??? coenzyme Q-10 100 mg capsule Stop taking 1 days prior to surgery ??? dilTIAZem (TIAZAC) 300 mg 24 hr capsule Stop taking 1 days prior to surgery ??? estradiol (VIVELLE-DOT) 0.075 mg/24 hr Stop taking 1 days prior to surgery ??? nitroGLYCERIN (NITROSTAT) 0.4 mg SL tablet Per MD Instructions ??? PROGESTERONE MICRONIZED ORAL Per MD Instructions ??? ranolazine (RANEXA) 500 mg 12 hr tablet Take morning of surgery ??? sennosides (SENOKOT ORAL) Stop taking 1 days prior to surgery ??? traZODone (DESYREL) 50 mg tablet Stop taking 1 days prior to surgery ??? If you were instructed to get a medical or cardiac clearance, have the office fax it to us at . ??? Over the counter anti-inflammatory medications such as Ibuprofen and supplements such as fish oil can also be blood thinning and are often stopped one week before surgery. Tylenol is okay to take if needed. ??? If instructed by the pre-operative nurse, bring a list of your medications (prescription and over the counter) on the day of surgery, so we may complete your medical record. ??? You may take a shower and brush your teeth the morning of your surgery. For your safety, do not wear make-up, lotion, or ointment on your skin. ??? Do not shave the operative site. We will use an electric clipper on the day of surgery. ??? Do not wear metal or jewelry. Remove all piercings. Leave your valuable at home. ??? Remove nail lux[place]bourg[place], if instructed by your surgeon. Be aware, artificial nails increase the risk of post-operative infections and can interfere with monitors. ??? If you wear eyeglasses, bring a case. No contact lenses are permitted during surgery. ??? Wear loose, comfortable clothing. Your clothing should be loose enough to stretch over bandages,arms, slings, casts, splints, etc. 100% cotton underwear are allowed for some procedures. ??? If you are female and still have your menses, you may be asked to provide a urine sample upon arrival. ??? If you use CPAP for sleep apnea, you may be asked to bring it with you day of surgery. ??? If applicable, bring your Advanced Directive/Living Will/Medical Power of Packager Machine or Custody Papers. ??? Bring any medical equipment as directed by your surgeon, such as crutches or a special brace forafter surgery. ??? Due to anesthesia, you must have a responsible adult accompany you home from our facility. Someone should be at home with you for the first 24 hours following your surgery. You will not be allowed to drive after surgery if any type of sedation has been administered. Prior to discharge, we will review after care instructions with you and your ride. If you do not authorize us to speak with this person, we must be notified, and other arrangements be made prior to surgery. Person driving you home from surgery? Herbert Contact number: [phone] May we discuss your medical information with this person? Yes Caregiver to assist you at home after surgery? PEDIATRICS ??? To plan for discharge from our facility, it is recommended that a second adult be in the rear seat along with the child if seated in a car seat. ??? No solid foods after midnight. Clear liquids (water or apple juice) are allowed up to 2 hours before arrival to the surgery center. Infants may have formula up to 6 hours before arrival and breast milk up to 4 hours before arrival. ??? Parents of minors must always remain inside the building. ??? Bring your child???s favorite toy, pacifier, blanket, bottle/sipper cup or comforts from home. ??? Children having only ear tubes placed may stay in a set of freshly laundered pajamas for the procedure, if they are 2 pieces, do not have attached feet and are short sleeved. documented in this encounter OR Notes Perioperative Nursing Note - Debbie Lucas RN - 08/24/2020 9:38 AM EDT at bedside Perioperative Nursing Note - Edwina Todd RN - 08/24/2020 9:25 AM EDT SBAR report given to Debbie WILDER. Perioperative Nursing Note - Edwina Todd RN - 08/24/2020 8:45 AM EDT Placed patient on monitor and auscultated BBS, and verified ID band. RN received report from AMY Mathis RN and Rashid TRINIDAD. Assumed care of patient. Patient status update called to volunteer in the family waiting area. Op Note - Sincere Mayfield MD - 08/24/2020 7:55 AM EDT Orthopedic Surgery Operative Report PATIENT: Mago Branham DATE OF : 1960 CSN: [id number] Preoperative Diagnosis: Left medial meniscus tear Postoperative Diagnosis: Same Procedure Performed: 1. Partial medial medial meniscectomy involving portion of the posterior 1/3 2. Synevectomy partial Primary Surgeon: Sincere Mayfield MD It Teacher: Metal Flow Coordinator: Delfina Red RN Scrub Person: Gaurav Dye They assisted with positioning, prepping, draping, wound closure, and bandage application. The use of a physician wardrobe assistant was required due to the complexity of the case and the lack of similarly qualified assistants. Anesthesia: general + local anelgesia Fluids Administered: 800ml Drains: none Findings: see text Complications: None Specimens: None Estimated Blood Loss: insignificant * No implants in log * INDICATIONS: This is a patient presented with longstanding knee pain refractory to conservative management and now wants to proceed with knee arthroscopy. Risks and benefits of the procedure were discussed with thepatient who wished to proceed with the procedure. The risks include but are not limited to: infection, bleeding, blood clot, PE, neurologic injury, premature failure of implants, dislocation, RI, stroke or . Description of the Operation: Patient was identified in the perioperative area by myself. Correct extremity was identified and marked. Patient was brought to the operating room by Anesthesia. Patient was transferred to the operating table and a time-out was called in accordance with protocol. Patient was identified procedure was co nfirmed and laterality was confirmed. IV antibiotics were given within 1 hr of the incision. Generalendotracheal anesthesia was applied and patient was then prepped and draped in usual sterile orthopedic fashion. Anatomic landmarks were identified and a lateral portal was established 1st. Camera was introduced in the suprapatellar pouch and a thorough knee examination was performed. A medial meniscus tear was identified. 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 The meniscus tear was debrided down to a stable base. Chondroplasty was not required as there were no loose chondral flaps. At this point the knee was thoroughly irrigated instruments were removed from the knee the wounds were closed with nylon suture and local images was applied with 0.25% Marcaine without epinephrine. Incisions were then cleansed and dressed with Xeroform 4x4s Webril Bowen bandage. Patient was then woken from anesthesia transferred to the hospital bed and sent to the postanesthesia care unit having tolerated the procedure without any known complications. Plan: Patient will be weight-bearing as tolerated on the operative extremity. Patient may use crutches cane or walker as needed. They will follow up in clinic in 2 weeks for suture removal. Dressing should be left on for 72 hr postop unless saturated. After 72 hr daily dressing changes should be applied if drainage is present. If there is no drainage of the wound be left open to air. Do not submerge leg until wounds are completely healed in new skin has formed over the incision sites, this usually takes 3-4 weeks. ?? documented in this encounter Plan of Treatment Not on filedocumented as of this encounter Procedures Procedure Name Priority Date/Time Associated Diagnosis Comme nts ARTHROSCOPY KNEE / 08/24/2020 7:37 AM MENISCECTOMY / REMOVAL EDT LOOSE BODIES / RETINACULAR RELEASE documented in this encounter Visit Diagnoses Not on filedocumented in this encounter Administered Medications Inactive Administered Medications - up to 3 most recent administrations Medication Order MAR Action Action Date Dose Rate Site bupivacaine (Marcaine) 0.25 % Given 08/24/2020 8:33 AM EDT 60 mL Left Knee (2.5 mg/mL) injection As needed, Starting on Thu08/24/20 at 0833, Intra-op ibuprofen (Advil) tablet 600 mg Given 08/24/2020 7:10 AM EDT 600 mg 600 mg, oral, Once, On Thu08/24/20 at 0730, For 1 dose, Pre-op lactated Ringer's infusion Continued from Pre 08/24/2020 7:37 AM EDT 100 mL/hr, intravenous, Continuous, Starting on Thu08/24/20 at 0700, Pre-op New Bag 08/24/2020 7:10 AM EDT 100 mL/hr 100 mL/hr lactated Ringer's Continued from OR 08/24/2020 8:45 AM 125 mL/hr 125 mL/hr infusion EDT 125 mL/hr, intravenous, Continuous, Starting on Thu08/24/20 at 0845, PACU (only) oxyCODONE (Roxicodone) immediate release tablet Given 08/24/2020 9:12 AM EDT 5 mg 5 mg 5 mg, oral, Every 6 hours PRN, severe pain , Starting on Thu08/24/20 at 0844, PACU (only), For use once the patient is transitioned to oral. Only give if patient has received acetaminophen. sodium chloride (NS) 0.9 % Given 08/24/2020 8:32 AM EDT 3,950 mL Left Knee irrigation solution As needed, Starting on Thu08/24/20 at 0832, Intra-op documented in this encounter Care Teams Ivf Embryologist Relationship Specialty Start Date End Date Sapphire Montez MD PCP - General Internal Medicine 08/06/18 documented as of this encounter
--- OUTSIDE RECORDS SUMMARY | 2022-07-17 08:04 | XMS_ITS | Encounter Summary ---
:1960 Author Organization [facility] Address [address] [place] [address] Care Team Providers Name Role Phone Sapphire Montez MD Primary Care Provider [phone] Encounter Details Date Type Department Care Team Description 11/15/2019 Nurse Triage [facility] Jaye Cutler RN [address] [place], [place] [address] Social History Tobacco Use Types Packs/Day Years [...] this encounter Miscellaneous Notes Telephone Encounter - Merari Franco RN - 11/16/2019 7:03 AM EST ED Disposition Follow up completed. Patient went to ED as instructed by Advice nurse, received treatment and was released. Telephone Encounter - Jaye Cutler RN - 11/15/2019 4:39 PM EST ONSET: Today, d/c home at 1330pm 11/15/19 MAIN PROBLEM/SYMPTOM: Had ortho surgery 11/14/19, was unable to void excepting for small amounts, bladder became very distended and firm and painful, tesfaye catheter placed 11/14/19.. Tesfaye d/c this morning between 0800-0900am. Since removal she has only voided very small amount initially in hospital and has felt urge to go but only dribbles coming out. ASSOC SX/PRECIP FACTORS: States her bladder is not as distended and firm as yesterday and she is notdrinking a lot of fluids as almost having a panic attack that it is not going thru, states she has been sipping on fluids throughout the day though. Is taking narcotic for sx pain WHAT IMPROVES/WORSENS SX: No improvement with urination since d/c home RESP RATE/QUALITY: wnl INTAKE: decreased but is sipping fluids OUTPUT: dribbles only since catheter removed ACTIVITY LEVEL: laying down now not feeling so good Disclaimer:This is nurse advice only, if you feel this health issue needs further care, you are advised to go to the Emergency Room. Agreeable to recommendations. Suspect urinary retention post surgical. Also may need increased fluids. Reason for Disposition ? ? [1] Unable to urinate (or only a few drops) > 4 hours AND [2] bladder feels very full (e.g., palpable bladder or strong urge to urinate) Additional Information ??? Negative: Shock suspected (e.g., cold/pale/clammy skin, too weak to stand, low BP, rapid pulse) ??? Negative: Sounds like a life-threatening emergency to the triager ??? Negative: Followed a genital area injury ??? Negative: Followed a genital area injury (penis, scrotum) ??? Negative: Vaginal discharge ??? Negative: Pus (white, yellow) or bloody discharge from end of penis ??? Negative: [1] Taking antibiotic for urinary tract infection (UTI) AND [2] female ??? Negative: [1] Taking antibiotic for urinary tract infection (UTI) AND [2] male ??? Negative: [1] Discomfort (pain, burning or stinging) when passing urine AND [2] ? ? Negative: [1] Discomfort (pain, burning or stinging) when passing urine AND [2] < 1 month ??? Negative: [1] Discomfort (pain, burning or stinging) when passing urine AND [2] female ??? Negative: [1] Discomfort (pain, burning or stinging) when passing urine AND [2] male ??? Negative: Pain or itching in the vulvar area ??? Negative: Pain in scrotum is main symptom ??? Negative: Blood in the urine is main symptom ??? Negative: Symptoms arising from use of a urinary catheter (Tesfaye or Coude) Protocols used: URINARY [id number] documented in this encounter Plan of Treatment Not on filedocumented as of this encounter Visit Diagnoses Not on filedocumented in this encounter Care Teams Magazine Supervisor Relationship Specialty Start Date End Date Sapphire Montez MD PCP - General Internal Medicine 08/06/18 documented as of this encounter
--- OUTSIDE RECORDS SUMMARY | 2022-07-17 08:04 | XMS_ITS | Encounter Summary ---
:1960 Author Organization [facility] Address [address] [place] [address] Care Team Providers Name Role Phone Sapphire Montez MD Primary Care Provider [phone] Encounter Details Date Type Department Care Team Description 08/17/2020 Orders Only [facility] Elijah Jeffries Special screening [address] [facility] [place] examination for viral [place], [place] [address] disease (Primary Dx) [address] [place] [address] Social History Tobacco Use Types Packs/Day Years [...] been in contact with No / Unsure 08/17/2020 2:02 PM EDT someone who was confirmed or suspected to have Coronavirus / COVID-19? documented as of this encounter Plan of Treatment Not on filedocumented as of this encounter Results COVID-19 RT-PCR, Qual Screening (08/21/2020 9:56 AM EDT) [facility] Method Time Signature SARS-CoV-2 NEGATIVE NEGATIVE 08/22/2020 [facility] 9:28 PM EDT LABORATORIES Comment: CASE: [id number] PATIENT: ALEX THOMAS COVID-19: Not Detected COVID-19 assay is a real-time RT-PCR richi t intended for the qualitative detection of nucleic acid from SARS-CoV- 2 in nasopharyngeal swab, nasopharyngeal aspirate, and bronchoalve olar lavage (BAL) specimens from individuals meeting CDC COVID-19 clinica l criteria (e.g., clinical signs and symptoms associated with SARS-Cov-2 infection) in conjunction with CDC COVID-19 epidemiological criteria (e.g., history of residence in or travel to a geographic region with active SARS- CoV-2 transmission at the time of travel, or other epidemiologic criteria for which SARS-CoV-2 testing may be indicated. Performance characteristics of the [employer] COVID-19 Combo, Real-time PCR Diagnostics test have been determined by [employer] and the test has been approved by the FDA for Emergency U se Authorization. ??[employer] is regulated under CLIA as qu alified to perform high-complexity testing. Specimen Anatomical Location / Collection Method Collection Tony e Received Time (Source) Laterality / Volume Swab Nasopharyngeal Non-blood 08/21/2020 9:56 08/21/2020 structure / Unknown Collection / AM EDT 12:24 PM EDT Unknown Elijah Beyer LAB MICROBIOLOGY - GENERAL O RDERABLES Performing Organization Address City/State/[facility] Code Phon e Number [employer] [address] [place] [address] documented in this encounter Visit Diagnoses Diagnosis Special screening examination for viral disease - Primary Special screening examination for unspec ified viral disease documented in this encounter Care Teams Television Cable Installer Relationship Specialty Start Date End Date Sapphire Montez MD PCP - General Internal Medicine 08/06/18 documented as of this encounter
--- OUTSIDE RECORDS SUMMARY | 2022-07-17 08:04 | XMS_ITS | Encounter Summary ---
:1960 Author Organization [facility] Address [address] [place] [address] Care Team Providers Name Role Phone Sapphire Montez MD Primary Care Provider [phone] Encounter Details Date Type Department Care Team Description 08/24/2020 Travel Social History Tobacco Use Types Packs/Day [...] on filedocumented in this encounter Care Teams Color Consultant Relationship Specialty Start Date End Date Sapphire Montez MD PCP - General Internal Medicine 08/06/18 documented as of this encounter
--- OUTSIDE RECORDS SUMMARY | 2022-07-17 08:04 | XMS_ITS | Encounter Summary ---
:1960 Author Organization [facility] Address [address] [place] [address] Care Team Providers Name Role Phone Sapphire Montez MD Primary Care Provider [phone] Encounter Details Date Type Department Care Team Description 10/05/2020 Telephone [facility] Care Shazia Boyer PA [address] [facility] [address] [place] [address] [phone] Social History Tobacco Use Types Packs/Day Years [...] this encounter Miscellaneous Notes Telephone Encounter - Shazia Boyer - 10/05/2020 4:20 PM EST Left VM for Mago with neg urine culture results. F/u with discussed plan from yesterday. Call back number given for any questions documented in this encounter Plan of Treatment Not on filedocumented as of this encounter Visit Diagnoses Not on filedocumented in this encounter Care Teams Child Development Instructor Relationship Specialty Start Date End Date Sapphire Montez MD PCP - General Internal Medicine 08/06/18 documented as of this encounter
--- OUTSIDE RECORDS SUMMARY | 2022-07-17 08:04 | XMS_ITS | Encounter Summary ---
:1960 Author Organization [facility] Address [address] [place] [address] Care Team Providers Name Role Phone Sapphire Montez MD Primary Care Provider [phone] Reason for Visit Auth/Cert Specialty Diagnoses / Procedures Referred By Contact Refer red To Contact Diagnoses Strain of adductor muscle, fascia and tendon of unspecified thigh, subsequent encounter Procedures CLOSED REDUCTION PERCUTANEOUS PINNING LEFT HIP 7.3 SYNTHES JACOB SCREW ELINA FX TABLE Referral ID Status Reason Start Date Expiration Date Visits Requ ested Visits Authorized [id number] 1 1 Encounter Details Date Type Department Care Team Description 11/14/2019 Surgery [facility] OPERATING ROOM Sincere Mayfield MD CLOSED REDUCTION [address] [facility] [address] [facility] PERCUTANEOUS PINNING [place], [place] [address] LEFT HIP [address] [place], [place] [phone] (Wo rk) Surgery Details Date/Time Status Location OR Service Patient Class Case Case Trauma Class Type Case? 11/14/19 Posted [facility] OR [facility] Orthopedics [facility] 11:00 AM Outpatient Surgery Panel 1 Procedure LRB Anes Op Region Wound Class Commen ts CLOSED REDUCTION Left Local with Hip Class II/ Clean PERCUTANEOUS PINNING Monitored Contaminated LEFT HIP Anesthesia Care Surgeon Surgeon Role Service Panel Sincere Mayfield [...] Sign Reading Time Taken Comments Blood Pressure 172/90 11/14/2019 10:06 AM EST Pulse 61 11/14/2019 11:00 AM EST Temperature 36.3 ??C (97.4 ??F) 11/14/2019 10:06 AM EST Respiratory Rate 15 11/14/2019 11:00 AM EST Oxygen Saturation 100% 11/14/2019 11:00 AM EST Inhaled Oxygen Concentration - - Weight [...] satisfaction. Pt encouraged to increase ambulation with senior staff psychologist while hospitalized. Plan/Recommendations: Patient will be discharged [...] walker;Cane;Crutches Prior Level of Function Level of [place] Independent Receives Help From Family Cognition Orientation [...] time;Adaptive equipment Equipment Rolling walker Gait Pattern Antalgic;[id number];Slow pace;Narrow base of support;Decreased step length Gait [...] and cane, no handrail with cane and INTERPRETER. All steady with good technique Activity Additional [...] caregiver support Equipment Recommended Walker Functional Measure: [facility] AM-PAC '6 Clicks' V.2 Basic Mobility Inpatient Short Form: See flow sheet for details. RAW SCORE: 21 CMS 0 - 100% SCORE: 30% Patient/Family Education: safety, importance of mobility, plan of care. Goals: Pt stated goal: to be active without pain again. After session, patient was left: -in no apparent distress -call barker and phone within reach -bed/chair alarm activated Rahul Jacobson PT Sincere Mayfiedl MD - 11/15/2019 7:33 AM EST Progress [...] not wear jewelry, body piercing, makeup, fingernail bahamian, or lipstick on day of surgery. If [...] family required to stay on hospital. Requested long haul truck driver/responsible democrat stay in waiting room until notified by staff. Responsible Director Of Student Life Name/Relationship: spouse James Patient Arrival Time: 0900 documented in this encounter Consult Notes Virginia Rodriguez CM SW - 11/15/2019 12:27 PM ESTAssociated Order(s): IP CONSULT TO CASE MANAGEMENT 11/15/2019 @ 0930 JONATHON s/w PT and pt is cleared to [...] outpt. Pt states no [place] [id number] documented in this encounter Nursing Notes Aminta [...] and feels it is caused by the [place], pt states she has taken percocet on 3 different occasions and it didn't make her nauseated. Call and message left with Dr Mayfield to make him aware as pt only has [place] at home for pain. 11:15: Dr Mayfield called at this time states he will have pain medication Percocet called into this pts pharmacy she will need to call her pharmacy before she leaves the hospital to make sure that there are meds for her to picker / packer. Pt made aware of this and at [...] to void on her own. Per pt also stated he could dc home without [...] HIP Laterality: Left Surgeon(s): Sincere Mayfield MD Warp Doffer/Staff: Supervisor Rides: Vinita Lopez RN Relief Supervisor Rides: Corinne Farrar RN Relief Scrub: Karen Iverson [...] Implant Name Type Inv. Item Serial No. Physiotherapist'S Assistant Lot No. LRB No. Used SCREW BONE CANNULATED STAINLESS STEEL 16MM THREAD HEXAGONAL SOCKET 80 X 7.3MM MISCELLANEOUS IMPLANTSSCREW BONE CANNULATED STAINLESS STEEL 16MM THREAD HEXAGONAL SOCKET 80 X 7.3MM [employer] [facility] CMF NA Left 2 SCREW BONE CANNULATED STAINLESS STEEL 16MM THREAD HEXAGONAL SOCKET 75 X 7.3MM MISCELLANEOUS IMPLANTSSCREW BONE CANNULATED STAINLESS STEEL 16MM THREAD HEXAGONAL SOCKET 75 X 7.3MM [employer] CMF NA Left 1 Specimens: No [...] PM EST SBAR report given to [place] nurse. Perioperative Nursing Note - Norma Maier RN [...] 2:30 PM EST Report to Evelyne WILDER [facility], pt in bed. She has voided 100 [...] HIP Laterality: Left Surgeon(s): Sincere Mayfield MD Warp Doffer/Staff: Supervisor Rides: Vinita Lopez RN Relief Supervisor Rides: Corinne Farrar RN Relief Scrub: Karen Iverson [...] Implant Name Type Inv. Item Serial No. Physiotherapist'S Assistant Lot No. LRB No. Used SCREW BONE [...] XR HIP INTRAOPERATIVE Routine 11/14/2019 12:17 Old ND (myocard ial Results for this LEFT PM [...] (H) 65 - 105 LAB CHEMISTRY 11/15/2019 [facility] mg/dL METHOD 6:26 AM EST BUN 6 (L) 7 - 22 LAB CHEMISTRY 11/15/2019 [facility] mg/dL METHOD 6:26 AM EST Creatinine 0.7 0.7 - 1.2 LAB CHEMISTRY 11/15/2019 [facility] mg/dL METHOD 6:26 AM EST Sodium 141 137 - 145 LAB CHEMISTRY 11/15/2019 [facility] mmol/L METHOD 6:26 AM EST Potassium 4.3 3.5 - 5.3 LAB CHEMISTRY 11/15/2019 [facility] mmol/L METHOD 6:26 AM EST Chloride 107 98 - 107 LAB CHEMISTRY 11/15/2019 [facility] mmol/L METHOD 6:26 AM EST CO2 26 22 - 30 LAB CHEMISTRY 11/15/2019 [facility] mmol/L METHOD 6:26 AM EST Calcium 9.3 8.4 - LAB CHEMISTRY 11/15/2019 [facility] 10.2 METHOD 6:26 AM EST mg/dL eGFR >60 >60 LAB CHEMISTRY 11/15/2019 [facility] mL/min/1. METHOD 6:26 AM EST 73m*2 Anion Gap (K+ 8 3 - 12 LAB CHEMISTRY 11/15/2019 [facility] excluded) mmol/L METHOD 6:26 AM EST Specimen Anatomical Collection Method / Collection Time Recei debbie Time (Source) Location / Volume Laterality Blood Venous blood / Venipuncture / 11/15/2019 5:29 11/15/20 19 5:40 Unknown Unknown AM EST AM EST Sincere Mayfield MD LAB BLOOD ORDERABLES Performing Organization Address City/State/ZIP Code Phon e Number [facility] [address] [place] [address] Hemoglobin and hematocrit, blood (11/15/2019 5:29 AM EST) P athologist Signature Hemoglobin 13.4 11.0 - 15.0 LAB HEMETOLOGY 11/15/2019 [facility] g/dL METHOD 5:46 AM EST Hematocrit 42 35 - 45 % LAB HEMETOLOGY 11/15/2019 [facility] METHOD 5:46 AM EST Specimen Anatomical Collection Method / Collection Time Recei debbie Time (Source) Location / Volume Laterality Blood Venous blood / Venipuncture / 11/15/2019 5:29 11/15/20 19 5:40 Unknown Unknown AM EST AM EST Narrative [facility] - 11/15/2019 5:46 AM EST Call surgeon if hemoglobin less than 9.0 . Sincere Mayfield MD LAB BLOOD ORDERABLES Performing Organization Address City/State/ZIP Code Phon e Number [facility] [address] [place] [address] X-ray hip intraoperative left (11/14/2019 12:17 PM [...] in this encounter Visit Diagnoses Diagnosis Old ND (myocardial infarction) - Primary Old myocardial infarction Strain of adductor muscle, fascia and te ndon of unspecified thigh, subsequent encounter Plan of Care - Juany Kuo RN - 11/15/2019 3:35 AM EST Goals: Problem: Pain Goal: Patient's pain/discomfort is manageable 11/15/2019334 by Juany Kuo RN Outcome: Progressing [...] dysmenorrhea, Blood clot prevention after joint replacement bupivacaine PF (MARCAINE) 0.5 % (5 mg/mL) Given 11/14/2019 12:08 PM EST 30 mL injection As needed, Starting on Thu11/14/19 at 1208, Intra-op HYDROcodone-acetaminophen (NORCO) 5-325 mg Given 11/14 6:45 [...] be administered only in pre-op holding or media reconciliation specialist to OR if the patient is in [...] mg/min. sodium chloride (NS) 0.9 % irrigation Given 11/14/2019 11:49 AM EST 1,000 mL solution As needed, Starting on Thu11/14/19 at 1149, Intra-op sodium chloride 0.9 Rate/Dose Verify 11/15/2019 6:24 [...] refused) 1000 (Not Given - Provider: Aminta Randolph RN - Reason: Patient/family refused) 100 mg, oral, [...] be administered only in pre-op holding or media reconciliation specialist to OR if the patient is in the ICU. sodium chloride 0.9 percent infusion 230 1 (New Bag - Provider: Juany Kuo RN)2301 (Paused - Provider: Juany Kuo, TINA)2302 (Restarted - Provider: Juany Kuo RN) 0624 (Rate/Dose Verify - Provider: Enedina Kuo RN)0800 (Stopped - Provider: Aminta Randolph, RN) 100 mL/hr, intravenous, at 100 mL/hr, [...] (CANCELE D) 1845 (Given - Provider: Shelby Garner RN) 1 tablet, oral, Every 4 hours [...] 4 mg 1053 (Given - Provider: Aminta Randolph, TINA) 4 mg, intravenous, Every 6 hours PRN, [...] oral.
documented in this encounter Care Teams Radioisotope Production Operator Relationship Specialty Start Date End Date Sapphire Montez MD PCP - General Internal Medicine 08/06/18 documented as of this encounter
--- OUTSIDE RECORDS SUMMARY | 2022-07-17 08:04 | XMS_ITS | Encounter Summary ---
:1960 Author Organization [facility] Address [address] [facility] [place] [address] Care Team Providers Name Role Phone Sapphire Montez MD Primary Care Provider Reason for Visit Reason Comments Chest Pain Auth/Cert Specialty Diagnoses / Procedures Referred By Contact Refer red To Contact Diagnoses Prinzmetal angina (CMS/HCC) Referral ID Status Reason Start Date Expiration Date Visits Requ ested Visits Authorized [id number] 1 1 Encounter Details Date Type Department Care Team Description 11/18/2019 - Emergency [facility]ARY Velez, Jung Pereyra MD [address] [place] [address] Prinzmetal angina (CMS/HCC) (Primary Dx) ; 11/19/2019 [address] [facility] Lico Wayne MD [address] [place] [address] Acute chest pain [place], [place] Aida Miller MD [address] [id number] Wilson Cartagena MD [address] [facility] [address] [place] [address] [phone] Social History Tobacco Use Types Packs/Day Years [...] Sign Reading Time Taken Comments Blood Pressure 100/62 11/19/2019 8:11 PM EST Pulse 60 11/19/2019 8:11 PM EST Temperature 36.8 ??C (98.3 ??F) 11/19/2019 8:11 PM EST Respiratory Rate 18 11/19/2019 8:11 PM EST Oxygen Saturation 99% 11/19/2019 8:11 PM EST Inhaled Oxygen Concentration - - Weight 52.5 kg (115 lb 11.9 oz) 11/18/2019 10:07 PM EST Height 157.5 cm (5' 2) 11/18/2019 10:07 PM EST Body Mass Index 21.17 11/18/2019 10:07 PM EST documented in this encounter Discharge Summaries Wilson Cartagena - 11/19/2019 9:43 PM EST Inpatient Discharge Summary BRIEF OVERVIEW Admitting Provider: Wilson Cartagena MD Discharge Provider: No att. providers found Primary Care Physician at Discharge: Sapphire Montez MD PCP Admission Date: 11/18/2019 Discharge Date: 11/19/2019 Primary Discharge Diagnosis: Chest pain possible Prinzmetal angina Secondary Discharge Diagnosis: Vaso spastic angina Anxiety Myocardial infarction with negative cardiac Cath in 2018 Hyperlipidemia Problem List Items Addressed This Visit Nervous Prinzmetal angina (CMS/HCC) - Primary Relevant Medications dilTIAZem (TIAZAC) 300 mg 24 hr capsule isosorbide dinitrate (ISORDIL) 20 mg tablet rosuvastatin (CRESTOR) 40 mg tablet aspirin 81 mg tablet Other Visit Diagnoses Acute chest pain Patient Active Problem List Diagnosis ??? [place] (myocardial infarction) ??? Prinzmetal angina (CMS/HCC) Discharge Disposition: 01 Home or Self Care Code Status at Discharge: Full Hospital Course: Mago Branham is a 59-year-old female who follows ask you in the clinic, with pastmedical history Prinzmetal's angina, CAD with microvascular disease, hyperlipidemia, hypertension. She developed left chest radiating to right chest radiating to her neck pain 5/10 with associated shortness of breath palpitations and feeling a little out of control. She states she has been having palpitations since her surgery on 11/14/2019. apparently this surgery was complicated with urinary tension and constipation. She has had no bowel movements since then at the ER patient is a nitro drip transfer to the floor .EKG was unremarkable. Serial troponin levels were within normal limits. # Chest pain in the setting of vasospastic angina and history of [place] the multiple negative workups for atherosclerotic cardiac disease The patient consult Cardiology increase the dose of isosorbide and diltiazem nitro was discontinued. Having extreme anxiety postoperatively could not contribute to a chest pain. 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 Test Results Pending at Discharge: Last Labs: Results from last 3 days Lab Units 11/18/19 1558 WBC AUTO K/uL 5.14 HEMOGLOBIN g/dL 13.0 HEMATOCRIT % 39 MCV fL 94 PLATELETS AUTO K/uL 201 Results from last 3 days Lab Units 11/19/19 0451 SODIUM mmol/L 138 POTASSIUM mmol/L 4.0 CHLORIDE mmol/L 106 CO2 mmol/L 25 BUN mg/dL 5* CREATININE mg/dL 0.7 GLUCOSE mg/dL 98 CALCIUM mg/dL 8.6 Results from last 3 days Lab Units 11/18/19 2259 11/18/19 1549 APTT Seconds 26.6 -- INR -- 1.0 Results from last 3 days Lab Units 11/19/19 0451 TROPONIN I ng/mL <0.012 Results from last 3 days Lab Units 11/19/19 0451 CHOLESTEROL mg/dL 143 TRIGLYCERIDES mg/dL 87 HDL mg/dL 64 Results from last 3 days Lab Units 11/18/19 1558 ALK PHOS U/L 50 BILIRUBIN TOTAL mg/dL 0.6 TOTAL PROTEIN g/dL 7.8 ALBUMIN g/dL 4.7 ALT U/L 26 AST U/L 36 Results from last 3 days Lab Units 11/19/19 0451 MAGNESIUM mg/dL 2.0 Results from last 3 days Lab Units 11/19/19 0451 11/18/19 2259 EGFR mL/min/1.73m*2 >60 -- PHOSPHORUS mg/dL -- 3.1 Urinalysis: Urine Culture: Intake/Output this shift: I/O this shift: In: 176.7 [I.V.:176.7] Out: - No results found. Discharge Medications: Your medication list START taking these medications Instructions Last Dose Given Next Dose Due ALPRAZolam 0.5 mg tablet Commonly known as: XANAX Take 1 tablet (0.5 mg total) by mouth at night if needed for anxiety. aspirin 81 mg tablet Start taking on: November 20, 2019 Take 1 tablet (81 mg total) by mouth 1 (one) time each day. dilTIAZem 300 mg 24 hr capsule Commonly known as: TIAZAC Start taking on: November 20, 2019 Replaces: dilTIAZem 120 mg immediate release tablet Take 1 capsule (300 mg total) by mouth 1 (one) time each day. isosorbide dinitrate 20 mg tablet Commonly known as: ISORDIL Take 1 tablet (20 mg total) by mouth 3 (three) times a day. polyethylene glycol 236-22.74-6.74 -5.86 gram solution Commonly known as: GOLYTELY Take 4,000 mL by mouth 1 (one) time for 1 dose. Whole Gallon unless you have a bowel movement CHANGE how you take these medications Instructions Last Dose Given Next Dose Due rosuvastatin 40 mg tablet Commonly known as: CRESTOR Start taking on: November 20, 2019 What changed: ?? medication strength ?? how much to take Take 1 tablet (40 mg total) by mouth 1 (one) time each day. CONTINUE taking these medications Instructions Last Dose Given Next Dose Due coenzyme Q-10 100 mg capsule estradiol 0.075 mg/24 hr Commonly known as: VIVELLE-DOT ibuprofen 200 mg tablet Commonly known as: ADVIL nitroGLYCERIN 0.4 mg SL tablet Commonly known as: NITROSTAT ondansetron ODT 4 mg tablet Commonly known as: ZOFRAN ODT Take 1 tablet (4 mg total) by mouth every 8 (eight) hours if needed for nausea or vomiting for up to 7 days. PROGESTERONE MICRONIZED ORAL ranolazine 500 mg 12 hr tablet Commonly known as: RANEXA SENOKOT ORAL traZODone 50 mg tablet Commonly known as: DESYREL STOP taking these medications dilTIAZem 120 mg immediate release tablet Commonly known as: CARDIZEM Replaced by: dilTIAZem 300 mg 24 hr capsule Where to Get Your Medications These medications were sent to [facility]/pharmacy #[id number] [place], [place] - [address] [place] [address] [address] [facility] [address] [place] [id number] Hours: 24-hours ?? aspirin 81 mg tablet ?? isosorbide dinitrate 20 mg tablet ?? polyethylene glycol 236-22.74-6.74 -5.86 gram solution ?? rosuvastatin 40 mg tablet You can get these medications from any pharmacy Bring a paper prescription for each of these medications ?? ALPRAZolam 0.5 mg tablet Information about where to get these medications is not yet available Ask your nurse or doctor about these medications ?? dilTIAZem 300 mg 24 hr capsule DETAILS OF HOSPITAL STAY Presenting Problem/History of Present Illness: Prinzmetal angina (CMS/[facility]) [I20.1] Operative Procedures Performed: T Physical Exam at Discharge: Discharge Condition: good Pulse: 60 Resp: 18 BP: 100/62 Temp: 98.3 ??F (36.8 ??C) Weight: 115 lb 11.9 oz (52.5 kg) Visit Vitals BP 100/62 (BP Location: Right upper arm, Patient Position: Lying) Pulse 60 Temp 98.3 ??F (36.8 ??C) (Oral) Resp 18 Ht 5' 2 (1.575 m) Wt 115 lb 11.9 oz (52.5 kg) SpO2 99% BMI 21.17 kg/m?? OB Status Postmenopausal Smoking Status Former Smoker BSA 1.52 m?? General Appearance: Alert, cooperative, no distress, appears stated age Head: Normocephalic, without obvious abnormality, atraumatic Eyes: PERRL, conjunctiva/corneas clear, EOM's intact, fundi benign, both eyes Ears: Normal TM's and external ear canals, both ears Nose: Nares normal, septum midline, mucosa normal, no drainage or sinus tenderness Throat: Lips, mucosa, and tongue normal; teeth and gums normal Neck: Supple, symmetrical, trachea midline, no adenopathy; thyroid: no enlargement/tenderness/nodules; no carotid bruit or JVD Back: Symmetric, no curvature, ROM normal, no CVA tenderness Lungs: Clear to auscultation bilaterally, respirations unlabored Chest Wall: No tenderness or deformity Heart: Regular rate and rhythm, S1 and S2 normal, no murmur, rub or gallop Breast Exam: No tenderness, masses, or nipple abnormality Abdomen: Soft, non-tender, bowel sounds active all four quadrants, no masses, no organomegaly Genitalia: Normal female without lesion, discharge or tenderness Rectal: Normal tone, no masses or tenderness; guaiac negative stool Extremities: Extremities normal, atraumatic, no cyanosis or edema Pulses: 2+ and symmetric all extremities Skin: Skin color, texture, turgor normal, no rashes or lesions Lymph nodes: Cervical, supraclavicular, and axillary nodes normal Neurologic: CNII-XII intact, normal strength, sensation and reflexes throughout SIGNATURE: Wilson Cartagena MD DATE: November 20, 2019 TIME: 6:28 PM documented in this encounter Medications at Time of Discharge Medication Sig Dispensed Refills Start Date End Date coenzyme Q-10 100 mg Take 100 mg by 0 capsule mouth 1 (one) time each day. dilTIAZem (TIAZAC) 300 mg Take 1 capsule (300 30 capsule 0 1 24 hr capsule mg total) by mouth 1 (one) time each day. estradiol [...] dosage DOS each day. ranolazine (RANEXA) 500 Take 500 mg by 0 mg 12 hr tablet mouth 2 (two) times a day. Do not crush, chew, or split. sennosides (SENOKOT ORAL) Take 1 tablet by 0 mouth 1 (one) time each day. traZODone (DESYREL) 50 mg Take 25 mg by mouth 0 tabletIndications: every night. 25-50mg nightly ALPRAZolam (XANAX) 0.5 mg Take 1 tablet (0.5 30 tablet 0 12/19/2019 tablet mg total) by mouth at night if needed for anxiety. aspirin 81 mg tablet Take 1 tablet (81 30 tablet 0 11/20/20 19 12/20/2019 mg total) by mouth 1 (one) time each day. ondansetron ODT (ZOFRAN Take 1 tablet (4 mg 20 tablet 0 11/22/2019 ODT) 4 mg tablet total) by mouth every 8 (eight) hours if needed for nausea or vomiting for up to 7 days. polyethylene glycol Take 4,000 mL by 4000 mL 0 11/19/2019 11/19/2019 (GOLYTELY) 236-22.74-6.74 mouth 1 (one) time -5.86 gram solution for 1 dose. Whole Gallon unless you have a bowel movement ibuprofen (ADVIL) 200 mg Take 200 mg by 0 08/16/2020 tablet mouth 2 (two) times a day if needed for mild pain. isosorbide dinitrate Take 1 tablet (20 90 tablet 0 11/19/20 19 08/16/2020 (ISORDIL) 20 mg tablet mg total) by mouth 3 (three) times a day. rosuvastatin (CRESTOR) 40 Take 1 tablet (40 30 tablet 0 08/16/2020 mg tablet mg total) by mouth 1 (one) time each day. documented as of this encounter H&P Notes Saritha Miller - 11/18/2019 10:05 PM EST Patient: Mago Branham Date: 11/18/2019 : 1960 Admission Date: 11/18/2019 Attending: Aida Miller MD CODE STATUS: Prior MARITIME ENGINEER: Sapphire Montez MD Chief Complaint: Chief Complaint Patient presents with ??? Chest Pain History Gathered From: patient History of Present Illness Mago Branham is a 59 y.o. female with a PMHx of Prinzmetal's angina and multiple cardiac workups presenting with chest pain. Patient had hip surgery on Oct for a stress fracture with 3 pins placed, and states that she has felt awful week since the surgery. She has been nauseous with daily vomiting since the surgery, in response to her pain medications. However earlier today she started to develop chest pain that she describes as pressure across the chest radiating to both shoulders. She feels like someone is sitting on her chest. It is not associated with changes in position. Pain does not radiate to the arms and does not radiate to the jaw. The chest pain developed when she was at rest and is not associated with exertion or rest. Not associated with eating. She currently describes the pain as 4/10. She took 2 nitro tablets at home which did not improve her pain. Although she has had nausea and vomiting for most of the week, she has not taken any pain meds today and denies any nausea symptoms today. Denies diaphoresis, lightheadedness, dizziness. She endorses a feeling of having to take deep breaths like she can't get enough air in, but she denies shortness of breath with exertion. She and her family both state that this has been a stressful time for her, especially with new job as well as unanticipated surgery on Thursday. Daughter states that the that she had possible panic attack this morning, patient does endorse possibility that her pain could be related to stress. She denies abdominal pain, diarrhea, focal neurological changes. She does endorse constipation, has not had a bowel movement since Thursday. Patient has history of Prinzmetal angina, last left heart catheterization was normal with clear coronaries. She had a normal nuclear med stress test in 2016 and a normal LUIZ in 2018. Per patient, when she had Prinzmetal angina in the past, she had EKG changes and elevated troponins. ER course: Patient was placed on a nitro drip for pain control which improved her pain slightly. Vital signs are normal besides hypertension. Tropes negative. Past Medical History: Diagnosis Date ??? Angina pectoris (CMS/HCC) ??? Coronary artery disease coronary microvascular disease ??? Coronary vasospasm (CMS/HCC) right coronary artery ??? Fractures non displaced femoral neck fx left ??? Hyperlipidemia ??? Hypertension ??? Joint pain L hip ??? Pneumonia 10 yrs ago ??? Wears glasses reading Past Surgical History: Procedure Laterality Date ??? CARDIAC CATHETERIZATION ??? SECTION x 3 Prior to Admission medications Medication Sig Start Date End Date Taking? Authorizing Provider coenzyme Q-10 100 mg capsule Take 100 mg by mouth 1 (one) time each day. Historical ProviderMD dilTIAZem (CARDIZEM) 120 mg immediate release tablet Take 240 mg by mouth 1 (one) time each day. Historical ProviderMD estradiol (VIVELLE-DOT) 0.075 mg/[address] 1 patch on the skin 2 (two) times a week. Historical ProviderMD ibuprofen (ADVIL) 200 mg tablet Take 200 mg by mouth 2 (two) times a day if needed for mild pain. Historical ProviderMD isosorbide dinitrate (ISORDIL) 5 mg tablet Take 5 mg by mouth 3 (three) times a day. Historical ProviderMD nitroGLYCERIN (NITROSTAT) 0.[address] 0.4 mg under the tongue every 5 (five) minutes if needed for chest pain. Historical ProviderMD ondansetron ODT (ZOFRAN ODT) 4 mg tablet Take 1 tablet (4 mg total) by mouth every 8 (eight) hours if needed for nausea or vomiting for up to 7 days. 11/15/19 11/22/19 Ryan Johnston Jr., MD PROGESTERONE MICRONIZED ORAL Take 1 tablet by mouth 1 (one) time each day. Historical ProviderMD ranolazine (RANEXA) 500 mg 12 hr tablet Take 500 mg by mouth 2 (two) times a day. Do not crush, chew, or split. Historical ProviderMD rosuvastatin (CRESTOR) 20 mg tablet Take 20 mg by mouth 1 (one) time each day. Historical ProviderMD sennosides (SENOKOT ORAL) Take 1 tablet by mouth 1 (one) time each day. Historical ProviderMD traZODone (DESYREL) 50 mg tablet Take 25 mg by mouth every night. Historical ProviderMD Family History Problem Relation Age of Onset ??? No Known Problems Sister ??? No Known Problems Sister ??? No Known Problems Sister Social History Tobacco Use ??? Smoking status: Former Smoker ??? Smokeless tobacco: Never Used ??? Tobacco comment: quit many yrs ago Substance Use Topics ??? Alcohol use: No ??? Drug use: No REVIEW OF SYSTEMS Review of Systems Constitutional: Negative for activity change, appetite change, diaphoresis and fever. HENT: Negative for congestion, sinus pressure, sneezing and voice change. Respiratory: Positive for chest tightness. Negative for cough, choking, wheezing and stridor. Cardiovascular: Positive for chest pain. Negative for palpitations and leg swelling. Gastrointestinal: Positive for constipation. Negative for abdominal pain, blood in stool, diarrhea and vomiting. Genitourinary: Negative for difficulty urinating, dysuria, frequency, hematuria and urgency. Musculoskeletal: Negative for back pain, gait problem, joint swelling, myalgias and neck pain. Skin: Negative for pallor, rash and wound. Neurological: Negative for dizziness, tremors, seizures, syncope, weakness and light-headedness. Psychiatric/Behavioral: Negative for confusion. Vital Signs (most recent): Visit Vitals BP (!) 147/82 (BP Location: Right upper arm, Patient Position: Lying) Pulse 66 Temp 97.2 ??F (36.2 ??C) (Oral) Resp 15 Ht 5' 2 (1.575 m) Wt 116 lb (52.6 kg) SpO2 99% BMI 21.22 kg/m?? OB Status Postmenopausal Smoking Status Former Smoker BSA 1.52 m?? PHYSICAL EXAM Physical Exam Constitutional: General: She is not in acute distress. Appearance: Normal appearance. She is normal weight. She is not ill-appearing, toxic-appearing or diaphoretic. Comments: Anxious appearing HENT: Head: Normocephalic and atraumatic. Nose: Nose normal. No congestion or rhinorrhea. Mouth/Throat: Mouth: Mucous membranes are moist. Pharynx: Oropharynx is clear. No oropharyngeal exudate or posterior oropharyngeal erythema. Eyes: General: No scleral icterus. Right eye: No discharge. Left eye: No discharge. Extraocular Movements: Extraocular movements intact. Conjunctiva/sclera: Conjunctivae normal. Pupils: Pupils are equal, round, and reactive to light. Cardiovascular: Rate and Rhythm: Normal rate and regular rhythm. Pulses: Normal pulses. Heart sounds: Murmur (3/6 systolic ejection murmur radiating to carotids) present. No friction rub.No gallop. Pulmonary: Effort: Pulmonary effort is normal. No respiratory distress. Breath sounds: Normal breath sounds. No stridor. No wheezing, rhonchi or rales. Chest: Chest wall: No tenderness. Abdominal: General: Abdomen is flat. Bowel sounds are normal. There is no distension. Palpations: Abdomen is soft. Tenderness: There is no abdominal tenderness. There is no guarding or rebound. Musculoskeletal: Normal range of motion. General: No swelling, tenderness, deformity or signs of injury. Right lower leg: No edema. Left lower leg: No edema. Comments: Surgical site without swelling or erythema Skin: General: Skin is warm and dry. Capillary Refill: Capillary refill takes less than 2 seconds. Coloration: Skin is not jaundiced or pale. Findings: No bruising, erythema, lesion or rash. Neurological: General: No focal deficit present. Mental Status: She is alert and oriented to person, place, and time. Mental status is at baseline. Cranial Nerves: No cranial nerve deficit. Motor: No weakness. Psychiatric: Thought Content: Thought content normal. Judgment: Judgment normal. Comments: Anxious mood LABS & IMAGING Recent Results (from the past 24 hour(s)) ECG 12 lead Collection Time: 11/18/19 3:37 PM Result Value Ref Range MS Interval 155 ms QRSD Interval 67 ms QT Interval 427 ms QTcB 468 ms QTcF 454 ms QRS Horizontal [place] 6 deg QRS [place] 78 deg LIGHT BLUE TOP TUBE Collection Time: 11/18/19 3:49 PM Result Value Ref Range Extra Tube An Extra tube was collected from this patient. Please follow add on workflow or contact the Laboratory if you wish to place orders on this specimen. CBC auto differential Collection Time: 11/18/19 3:58 PM Result Value Ref Range WBC 5.14 4.00 - 11.00 K/uL RBC 4.15 3.80 - 5.00 M/uL Hemoglobin 13.0 11.0 - 15.0 g/dL Hematocrit 39 35 - 45 % MCV 94 81 - 99 fL MCH 31 28 - 32 pg MCHC 33 32 - 36 g/dL RDW-SD 42.3 35.0 - 46.0 fL RDW-CV 12.1 11.0 - 15.0 % MPV 11.0 9.0 - 12.5 fL Platelets 201 130 - 400 K/uL nRBC 0 <=0 /100 WBCs Neutrophils % 57 40 - 75 % Lymphocytes % 31 15 - 45 % Monocytes % 10 2 - 12 % Eosinophils % 1 0 - 6 % Basophils % 1 0 - 2 % Immature Granulocytes 0 % Neutrophils Absolute 2.93 1.60 - 7.50 K/uL Lymphocytes Absolute 1.61 0.60 - 4.50 K/uL Monocytes Absolute 0.49 0.10 - 1.20 K/uL Eosinophils Absolute 0.06 0.00 - 0.60 K/uL Basophils Absolute 0.04 0.00 - 0.20 K/uL Immature Granulocytes Absolute 0.01 K/UL Differential Type Auto Morphology Review NOT PERFORMED Comprehensive metabolic panel Collection Time: 11/18/19 3:58 PM Result Value Ref Range Glucose 101 65 - 105 mg/dL BUN 7 7 - 22 mg/dL Creatinine 0.7 0.7 - 1.2 mg/dL Sodium 141 137 - 145 mmol/L Potassium 4.3 3.5 - 5.3 mmol/L Chloride 106 98 - 107 mmol/L CO2 22 22 - 30 mmol/L Calcium 9.9 8.4 - 10.2 mg/dL Total Protein 7.8 6.3 - 8.2 g/dL Albumin 4.7 3.5 - 5.0 g/dL AST 36 14 - 36 U/L Alkaline Phosphatase 50 38 - 126 U/L ALT (SGPT) 26 0 - 34 U/L Total Bilirubin 0.6 0.2 - 1.3 mg/dL eGFR >60 >60 mL/min/1.73m*2 Anion Gap (K+ excluded) 13 (H) 3 - 12 mmol/L Troponin I Collection Time: 11/18/19 3:58 PM Result Value Ref Range Troponin I <0.012 0.000 - 0.033 ng/mL Troponin I Collection Time: 11/18/19 8:13 PM Result Value Ref Range Troponin I <0.012 0.000 - 0.033 ng/mL IMAGING: Upon my review: CT Chest Angio w and wo IV Contrast Protocol Narrative: History: Short of breath, chest pain. Evaluate for acute pulmonary thromboembolism. Technique: Initial unenhanced monitoring slices were obtained through the pulmonary arteries for bolus tracking purposes. Then, multidetector CT acquisition was obtained through the pulmonary arteries and the chest during the IV administration of 80 mL of Omnipaque-350 nonionic contrast and 50 mL of sa line. No adverse reaction. 1.5 mm and 5 mm axial images were reconstructed. 3D angiographic post-processing was performed including coronal and coronal oblique MIP reconstructions. Findings: Quality of exam is excellent. Pulmonary arteries enhance normally and are normal in caliber. No filling defects are identified to suggest pulmonary thromboembolism. Heart: The heart is normal in size without a pericardial effusion Lungs: Biapical pleural parenchymal scarring. Calcified granuloma seen within the right upper lobe. No evidence of consolidation. Pleura: Without effusion. Mediastinum: Contains no enlarged nodes considered pathologic by size criteria. Chest wall structures: Unremarkable. Upper abdomen: Limited images are unremarkable Osseous Structures: No destructive osseous lesions Impression: 1. No pulmonary artery filling defects to suggest acute pulmonary thromboembolism. 2. No evidence of pneumonia Dictated: Henry Ansari MD On: 11/18/2019 6:24 PM Electronically signed by: Henry Ansari MD On: 11/18/2019 6:34 PM Transcribed: X-ray Chest PA and Lateral Narrative: History: Chest pain. Recent hip surgery. Comparison: None Findings: AP and lateral radiographs of the chest were obtained. Two views, 3 exposures total. The lungs and pleural spaces are clear. Normal cardiomediastinal silhouette. The osseous structures are unremarkable. Impression: No acute cardiopulmonary disease. Dictated: Dima Alaniz MD On: 11/18/2019 4:46 PM Electronically signed by: Dima Alaniz MD On: 11/18/2019 4:47 PM Transcribed: EKG Interpretation (upon my review): Encounter Date: 11/18/19 ECG 12 lead Result Value MS Interval 155 QRSD Interval 67 QT Interval 427 QTcB 468 QTcF 454 QRS Horizontal [place] 6 QRS [place] 78 Impression Sinus rhythm normal P axis, V-rate 50-99 Consider right atrial enlargement P >0.24mV limb lead ASSESSMENT & PLAN Mago Branham is a 59 y.o. female a history of Prinzmetal angina, presenting with chest Patient Active Problem List Diagnosis ??? [place] (myocardial infarction) ??? Prinzmetal angina (CMS/[facility]) #Chest Pain- HEART score of 3. History of Prinzmetal angina followed by Dr. Wagner. The characterization of her pain including pressure on the chest that radiates outward is moderately concerning, however it is not associated with exertion or rest. Per patient, when she had Prinzmetal angina in the past, she had an abnormal EKG and elevated troponins. Today, her initial troponin was negative, however will continue to trend throughout the night. PE was ruled out with a CT PE, and chest x-ray also did not show any pulmonary process. She was started on a nitro drip in the ER, continues to have chest pain. Will also treat with calcium channel blockers (patient took her home diltiazem while in the ER) as well as nitro and morphine. -Trop x3 -EKG with chest pain -telemetry -continue nitro drip -nuc med stress test tomorrow AM -consult Cardiology -check lipids and start statin -Aspirin 81mg -pt took her home diltiazem in ER (usually takes at night) -nitro drip, continue for chest pain control and blood pressure -morphine for pain #Hypertension: Blood pressure on my exam was 165/100. Patient states that her blood pressure was nothigh earlier, and is usually not that. Suspect that there is any anxiety or stress component to this. Will treat with nitro drip, patient received her home diltiazem. Will treat with additional IV medications as needed. Goal systolic blood pressure less than 160. #Constipation: Patient has not had a bowel movement since Thursday. - Aggressive bowel regimen DVT/VTE Prophylaxis: Lovenox Code: FC Aida Miller MD, MD Hospitalist Internal Medicine 11/18/2019 10:05 PM documented in this encounter Consult Notes Sarai Ryder NP - 11/19/2019 12:49 PM EST Cardiology General Consult Note History of Present Illness: Reason for consult: Chest pain with history of Prinzmetal angina Mago Branham is a 59-year-old female who follows ask you in the clinic, with pastmedical history Prinzmetal's angina, CAD with microvascular disease, hyperlipidemia, hypertension. She developed left chest radiating to right chest radiating to her neck pain 5/10 with associated shortness of breath palpitations and feeling a little out of control. She states she has been having palpitations since her surgery on 11/14/2019. Troponins have been negative times for, lipid panel stable,CT of the chest for PE. She has chosen, which I think is appropriate, to forego the nuclear stress as an inpatient and call the [facility] office on Thursday to schedule as an outpatient. EKG stable sinus rhythm. Allergies: No Known Allergies Past Medical History: Past Medical History: Diagnosis Date ??? Angina pectoris (CMS/HCC) ??? Coronary artery disease coronary microvascular disease ??? Coronary vasospasm (CMS/HCC) right coronary artery ??? Fractures non displaced femoral neck fx left ??? Hyperlipidemia ??? Hypertension ??? Joint pain L hip ??? Pneumonia 10 yrs ago ??? Wears glasses reading Past Surgical History: Past Surgical History: Procedure Laterality Date ??? CARDIAC CATHETERIZATION ??? SECTION x 3 Family History: Sisters x3 alive and healthy Social History: Social History Socioeconomic History ??? Marital status: Spouse name: Not on file ??? Number of children: Not on file ??? Years of education: Not on file ??? Highest education level: Not on file Occupational History ??? Not on file Social Needs ??? Financial resource strain: Not on file ??? Food insecurity: Worry: Not on file Inability: Not on file ??? Transportation needs: Medical: Not on file Non-medical: Not on file Tobacco Use ??? Smoking status: Former Smoker ??? Smokeless tobacco: Never Used ??? Tobacco comment: quit many yrs ago Substance and Sexual Activity ??? Alcohol use: No ??? Drug use: No ??? Sexual activity: Not on file Lifestyle ??? Physical activity: Days per week: Not on file Minutes per session: Not on file ??? Stress: Not on file Relationships ??? Social connections: Talks on phone: Not on file Gets together: Not on file Attends christian service: Not on file Active member of club or organization: Not on file Attends meetings of clubs or organizations: Not on file Relationship status: Not on file ??? Intimate partner violence: Fear of current or ex partner: Not on file Emotionally abused: Not on file Physically abused: Not on file Forced sexual activity: Not on file Other Topics Concern ??? Not on file Social History Narrative ??? Not on file Review of Systems: Constitutional: Negative for fatigue, fever and unexpected weight change. HENT: Negative for nosebleeds, rhinorrhea and sinus pressure. Eyes: Negative for photophobia, pain and visual disturbance. Respiratory: Negative for choking, shortness of breath and wheezing. Gastrointestinal: Negative for blood in stool, diarrhea and vomiting. Endocrine: Negative for polydipsia and polyuria. Genitourinary: Negative for flank pain, frequency and urgency. Musculoskeletal: Negative for myalgias, neck pain and neck stiffness. Skin: Negative for pallor, rash and wound. Neurological: Negative for seizures, numbness and headaches. Psychiatric/Behavioral: Negative for decreased concentration, dysphoric mood and hallucinations. Home medications: Medication Sig Start Date End Date Taking? Authorizing Provider coenzyme Q-10 100 mg capsule Take 100 mg by mouth 1 (one) time each day. ? Historical Provider, dilTIAZem (CARDIZEM) 120 mg immediate release tablet Take 240 mg by mouth 1 (one) time each day. ? Historical Provider, estradiol (VIVELLE-DOT) 0.075 mg/[address] 1 patch on the skin 2 (two) times a week. ? Historical Provider, ibuprofen (ADVIL) 200 mg tablet Take 200 mg by mouth 2 (two) times a day if needed for mild pain. ? Historical Provider, isosorbide dinitrate (ISORDIL) 5 mg tablet Take 5 mg by mouth 3 (three) times a day. ? Historical Provider, nitroGLYCERIN (NITROSTAT) 0.[address] 0.4 mg under the tongue every 5 (five) minutes if needed for chest pain. ? Historical Provider, ondansetron ODT (ZOFRAN ODT) 4 mg tablet Take 1 tablet (4 mg total) by mouth every 8 (eight) hours if needed for nausea or vomiting for up to 7 days. 11/15/19 11/22/19 ?? Ryan Johnston Jr., MD PROGESTERONE MICRONIZED ORAL Take 1 tablet by mouth 1 (one) time each day. ? Historical Provider, ranolazine (RANEXA) 500 mg 12 hr tablet Take 500 mg by mouth 2 (two) times a day. Do not crush, chew, or split. ? Historical Provider, rosuvastatin (CRESTOR) 20 mg tablet Take 20 mg by mouth 1 (one) time each day. ? Historical Provider, sennosides (SENOKOT ORAL) Take 1 tablet by mouth 1 (one) time each day. ? Historical Provider, traZODone (DESYREL) 50 mg tablet Take 25 mg by mouth every night. Diagnostics: CT Chest Angio w and wo IV Contrast Protocol Narrative: History: Short of breath, chest pain. Evaluate for acute pulmonary thromboembolism. Technique: Initial unenhanced monitoring slices were obtained through the pulmonary arteries for bolus tracking purposes. Then, multidetector CT acquisition was obtained through the pulmonary arteries and the chest during the IV administration of 80 mL of Omnipaque-350 nonionic contrast and 50 mL of sa line. No adverse reaction. 1.5 mm and 5 mm axial images were reconstructed. 3D angiographic post-processing was performed including coronal and coronal oblique MIP reconstructions. Findings: Quality of exam is excellent. Pulmonary arteries enhance normally and are normal in caliber. No filling defects are identified to suggest pulmonary thromboembolism. Heart: The heart is normal in size without a pericardial effusion Lungs: Biapical pleural parenchymal scarring. Calcified granuloma seen within the right upper lobe. No evidence of consolidation. Pleura: Without effusion. Mediastinum: Contains no enlarged nodes considered pathologic by size criteria. Chest wall structures: Unremarkable. Upper abdomen: Limited images are unremarkable Osseous Structures: No destructive osseous lesions Impression: 1. No pulmonary artery filling defects to suggest acute pulmonary thromboembolism. 2. No evidence of pneumonia Dictated: Henry Ansari MD On: 11/18/2019 6:24 PM Electronically signed by: Henry Ansari MD On: 11/18/2019 6:34 PM Transcribed: X-ray Chest PA and Lateral Narrative: History: Chest pain. Recent hip surgery. Comparison: None Findings: AP and lateral radiographs of the chest were obtained. Two views, 3 exposures total. The lungs and pleural spaces are clear. Normal cardiomediastinal silhouette. The osseous structures are unremarkable. Impression: No acute cardiopulmonary disease. Dictated: Dima Alaniz MD On: 11/18/2019 4:46 PM Electronically signed by: Dima Alaniz MD On: 11/18/2019 4:47 PM Transcribed: Lab Review: I have review the patient's lab results All lab results past 24 hours Results from last 3 days Lab Units 11/18/19 1558 WBC AUTO K/uL 5.14 HEMOGLOBIN g/dL 13.0 HEMATOCRIT % 39 MCV fL 94 PLATELETS AUTO K/uL 201 Results from last 3 days Lab Units 11/19/19 0451 11/18/19 1558 SODIUM mmol/L 138 141 POTASSIUM mmol/L 4.0 4.3 CHLORIDE mmol/L 106 106 CO2 mmol/L 25 22 BUN mg/dL 5* 7 CREATININE mg/dL 0.7 0.7 GLUCOSE mg/dL 98 101 CALCIUM mg/dL 8.6 9.9 Results from last 3 days Lab Units 11/18/19225811/18/19 1549 APTT Seconds 26.6 -- INR -- 1.0 Results from last 3 days Lab Units 11/19/1945011/18/19225811/18/192012 TROPONIN I ng/mL <0.012 <0.012 <0.012 Results from last 3 days Lab Units 11/19/19450 CHOLESTEROL mg/dL 143 TRIGLYCERIDES mg/dL 87 HDL mg/dL 64 Results from last 3 days Lab Units 11/18/19 1558 ALK PHOS U/L 50 BILIRUBIN TOTAL mg/dL 0.6 TOTAL PROTEIN g/dL 7.8 ALBUMIN g/dL 4.7 ALT U/L 26 AST U/L 36 Results from last 3 days Lab Units 11/19/1945011/18/192012 MAGNESIUM mg/dL 2.0 2.1 Results from last 3 days Lab Units 11/19/1945011/18/19225811/18/198 EGFR mL/min/1.73m*2 >60 -- >60 PHOSPHORUS mg/dL -- 3.1 -- Physical Exam: VS: 98.2, 61 SR, 16, 127/69, 99% RA GENERAL: No acute distress, pleasant HEENT: NC/AT Head. EOMI. Conjunctiva normal without discharge. Nose externally grossly normal. Ears externally grossly normal. MMM. Neck supple. CARDIAC: Regular S1 S2. No S3. No S4. No murmurs. No rub. No heave. No click. No JVD. LUNGS: CTA B/L. No wheeze. No crackles. No rales. No rhonci. Good effort. ABDOMEN: Soft. Nontender. Nondistented. Normal bowel sounds. No ascites. No HSM. EXTREMITIES: No clubbing. No cyanosis. No edema. SKIN: No Rash. Normal color. Normal temperature. M/S: FROM. No gross defect. Ambulatory. NEURO: A&O x 3. Normal gross sensory and motor function. PSYCH: Normal mood. Normal affect. Normal judgement. VASCULAR: No carotid bruit. No abdominal bruit. No palpable pulsatile abdominal mass. Radial pulses 2+ b/l. Pedal pulses 2+ b/l. Femoral pulses 2+ b/l. Assessment/Plan: Parish[facility] amilcar, has had multiple cardiac workups for chest pains with the last left heart catheterization showing normal coronaries, 2016 nuclear stress was normal, 2018 luiz normal, EKG showing sinus rhythm stable. Troponin negative times four this admission. Icing it is fine for her to be discharged to home today call with the [facility] office on Thursday and schedule for nuclear stress test to be doneas soon as possible. Continue aspirin, Ranexa, Crestor. Associated attestation - Geo Joyce MD - 11/19/2019 2:07 PM EST Patient interviewed and examined. Hospital and office chart reviewed in detail. Assessment and plan discussed with HEARING THERAPY DIRECTOR 59-year-old woman treated for hypertension dyslipidemia and Prinzmetal angina. According to asked use last note of 09/30/2019 there was a presumed coronary vasospasm NSTEMI in 2018 She has apparently had 2 normal cardiac catheterizations however. Furthermore LUIZ 08/06/2018 There is normal left ventricular wall thickness. Left ventricular systolic function is normal. The right ventricle is normal in size and function. The left atrial size is normal. Right atrial size is normal. Injection of contrast documented no interatrial shunt. The interatrial septum is intact with no evidence for an atrial septal defect. There is trace mitral regurgitation. The tricuspid valve is normal in structure and function. Trace aortic regurgitation. The aortic valve is trileaflet. The pulmonic valve is normal in structure and function. The aortic root is normal size. There is no pericardial effusion. Currently chest pain events with no significant EKG changes and troponin less than 0.012 x 3 Cholesterol 143 HDL 64 LDL 64 triglyceride 87 Chest x-ray normal CTA chest 11/18/2019 normal no PE Heart rate blood pressure and rhythm unremarkable. Exam similar to HEARING THERAPY DIRECTOR note. Overall with history of Prinzmetal's angina I would adjust her medical therapy then discontinue intravenous nitroglycerin followed by ambulation on the floors and then discharge likely mid day Thursday with office follow-up and likely stress nuclear study as well as review with Dr. Wagner Plan then to increase her Cardizem CD 240 up to 300 mg each day and increase Isordil from 5 to 20 mgt.i.d.. Aspirin 81 mg per day added. Crestor continued and Ranexa continued documented in this encounter Nursing Notes Allison Miller RN - 11/19/2019 9:35 PM EST Patient successful with bowel movements, ready to go home.Given 1 prescription for Xanax and all discharge instructions including medication list with some changes to meds.Advised to eat stewed prunes or consume prune juice daily and continue to take her probiotic daily to aid in consistent daily BM's. Patient and family verbalized understanding of all instructions. Ashlyn Sy RN - 11/19/2019 6:[address] Cartagena, don't cancel d/c order, when pt have a BM then she goes home if she doesn't then cancel d/c orders Ashlyn Sy RN - 11/19/2019 6:16 PM EST Pt and her daughters are not comfortable with her going home without having a BM, they said she's gone to the ED in the past with similar issues, Dr. Cartagena paged, awaiting his call back Ashlyn Sy RN - 11/19/2019 6:05 PM EST Pt has still not had a BM but was willing to get an order for golytely prior to going home, script called in to her pharmacy. D/c instructions printed Sy RN - 11/19/2019 5:28 PM EST Pt has not had a BM x 5 days, bowel regimen including miralax, mag citrate, supppository, lactulose and 2 xcups of warmed prune juice all given today, awaiting results. Family at bedside Ashlyn Sy RN - 11/19/2019 11:16 AM EST Pt has refused stress test to be done due to anxiety. paged to be notified Ashlyn Sy RN - 11/19/2019 8:53 AM EST Pt has stress test scheduled for today, she also had a left hip surgery done on 11/14, Dr. Cartagena notified of pt not being able to do the treadmill stress due to the hip surgery, he's going to f/u and call nurse for further orders, for now, pt is still NPO till further orders are given documented in this encounter ED Notes Carmelita Perez RN - 11/18/2019 6:35 PM EST Rn was called into patient room. RN went into room and daughter was at bedside wanting update. Daughter given update. Daughter then wanted to know about what was being given for patient medication. Notified daughter of meds given RANGE EXAMINER and tylenol. Daughter stated she would like for my mother to get medication to help with her discomfort. Patient then stated she did not want anything unless it was life threatening. Patient now frequently calling out for pain medication due to CP, neck pain, and neck numbness. aware. Carmelita Perez RN 11/18/19 970 Carmelita Perez RN - 11/18/2019 6:31 PM EST Patient c/o of not having a bowel movement since 11/10. Patient stated she has tried different medication with no success. aware. Carmelita Perez RN 11/18/19 9339 Carmelita Perez RN - 11/18/2019 3:29 PM EST EMS gave 324 ASA and patient took 0.4mg SL nitro x2 prior to EMS arrival. Carmelita Perez RN 11/18/19 1529 Jung Velez MD - 11/18/2019 3:16 PM ESTAssociated Order(s): ECG 12 lead HPI Chief Complaint Patient presents with ??? Chest Pain EBH: Pt is a 59 y/o F s/p closed reduction percutaneous pinning of Lt hip by Dr. Mayfield on 11/14 (not anticoagulated) w/ hx of angina, coronary microvascular dz, coronary vasospasm (Rt artery), HLD, and HTN presenting to the ED via EMS for evaluation of CP today. Pt states she felt like she was having a vasospasm. Pain is described as pressure and a weird sensation across chest. Pt was told her protocol for these pains is to take x2 SL Nitro and if no relief is given then call EMS. Pt states nitro did burn under tongue but had no relief. EMS administered 324mg ASA en route. Pt also reports feeling like she cannot take a deep breath and is unsure why. Pt has also not been mobile since surgery and her LBM was x4 days ago. Pt also has had weird feelings since the surgery. Pt also c/o chills jojo MARTÍNEZ. Pt denies fever, diaphoresis, cough, abd pain, or any other acute sxs. History provided by: Patient, medical records and relative Patient History Past Medical History: Diagnosis Date ??? Angina pectoris (CMS/HCC) ??? Coronary artery disease coronary microvascular disease ??? Coronary vasospasm (CMS/HCC) right coronary artery ??? Fractures non displaced femoral neck fx left ??? Hyperlipidemia ??? Hypertension ??? Joint pain L hip ??? Pneumonia 10 yrs ago ??? Wears glasses reading Past Surgical History: Procedure Laterality Date ??? CARDIAC CATHETERIZATION ??? SECTION x 3 Family History Problem Relation Age of Onset ??? No Known Problems Sister ??? No Known Problems Sister ??? No Known Problems Sister Social History Tobacco Use ??? Smoking status: Former Smoker ??? Smokeless tobacco: Never Used ??? Tobacco comment: quit many yrs ago Substance Use Topics ??? Alcohol use: No ??? Drug use: No Review of Systems Review of Systems Constitutional: Positive for chills. Negative for diaphoresis and fever. HENT: Negative for congestion, rhinorrhea and sore throat. Eyes: Negative for visual disturbance. Respiratory: Positive for shortness of breath. Negative for cough. Cardiovascular: Positive for chest pain. Gastrointestinal: Positive for constipation. Negative for abdominal pain. Genitourinary: Negative for dysuria and frequency. Skin: Negative for rash. Neurological: Positive for headaches. Hematological: Does not bruise/bleed easily. Physical Exam ED Triage Vitals [11/18/19 1538] Temp Pulse Resp BP SpO2 97.8 ??F (36.6 ??C) 65 16 (!) 166/70 100 % Temp src HR Source Patient Position BP Location FiO2 (%) Oral Monitor Sitting Left upper arm -- Physical Exam Vitals signs and nursing note reviewed. Constitutional: General: She is not in acute distress. Appearance: She is well-developed. HENT: Head: Normocephalic and atraumatic. Eyes: Conjunctiva/sclera: Conjunctivae normal. Neck: Musculoskeletal: Neck supple. Cardiovascular: Rate and Rhythm: Normal rate and regular rhythm. Heart sounds: No murmur. Pulmonary: Effort: Pulmonary effort is normal. No respiratory distress. Breath sounds: Normal breath sounds. Abdominal: Palpations: Abdomen is soft. Tenderness: There is no abdominal tenderness. Musculoskeletal: Normal range of motion. Skin: General: Skin is warm and dry. Capillary Refill: Capillary refill takes less than 2 seconds. Neurological: Mental Status: She is alert. ED Course & MDM ECG 12 lead Performed by: Jung Velez MD Authorized by: Jung Velez MD ECG reviewed by ED Physician in the absence of a licensing services clerk: yes Previous ECG: Previous ECG: Compared to current Similarity: No change Interpretation: Interpretation: normal Rate: ECG rate assessment: normal Rhythm: Rhythm: sinus rhythm Ectopy: Ectopy: none QRS: QRS axis: Normal ST segments: ST segments: Non-specific Labs Reviewed COMPREHENSIVE METABOLIC PANEL - Abnormal Result Value Glucose 101 BUN 7 Creatinine 0.7 Sodium 141 Potassium 4.3 Chloride 106 CO2 22 Calcium 9.9 Total Protein 7.8 Albumin 4.7 AST 36 Alkaline Phosphatase 50 ALT (SGPT) 26 Total Bilirubin 0.6 eGFR >60 Anion Gap (K+ excluded) 13 (*) TROPONIN I - Normal Troponin I <0.012 CBC WITH AUTO DIFFERENTIAL WBC 5.14 RBC 4.15 Hemoglobin 13.0 Hematocrit 39 MCV 94 MCH 31 MCHC 33 RDW-SD 42.3 RDW-CV 12.1 MPV 11.0 Platelets 201 nRBC 0 Neutrophils % 57 Lymphocytes % 31 Monocytes % 10 Eosinophils % 1 Basophils % 1 Immature Granulocytes 0 Neutrophils Absolute 2.93 Lymphocytes Absolute 1.61 Monocytes Absolute 0.49 Eosinophils Absolute 0.06 Basophils Absolute 0.04 Immature Granulocytes Absolute 0.01 Differential Type Auto Morphology Review NOT PERFORMED TROPONIN I CT Chest Angio w and wo IV Contrast Protocol Final Result History: Short of breath, chest pain. Evaluate for acute pulmonary thromboembolism. Technique: Initial unenhanced monitoring slices were obtained through the pulmonary arteries for bolus tracking purposes. Then, multidetector CT acquisition was obtained through the pulmonary arteries and the chest during the IV administration of 80 mL of Omnipaque-350 nonionic contrast and 50 mL of saline. No adverse reaction. 1.5 mm and 5 mm axial images were reconstructed. 3D angiographic post-processing was performed including coronal and coronal oblique MIP reconstructions. Findings: Quality of exam is excellent. Pulmonary arteries enhance normally and are normal in caliber. No filling defects are identified to suggest pulmonary thromboembolism. Heart: The heart is normal in size without a pericardial effusion Lungs: Biapical pleural parenchymal scarring. Calcified granuloma seen within the right upper lobe. No evidence of consolidation. Pleura: Without effusion. Mediastinum: Contains no enlarged nodes considered pathologic by size criteria. Chest wall structures: Unremarkable. Upper abdomen: Limited images are unremarkable Osseous Structures: No destructive osseous lesions IMPRESSION: 1. No pulmonary artery filling defects to suggest acute pulmonary thromboembolism. 2. No evidence of pneumonia Dictated: Henry Ansari MD On: 11/18/2019 6:24 PM Electronically signed by: Henry Ansari MD On: 11/18/2019 6:34 PM Transcribed: X-ray Chest PA and Lateral Final Result History: Chest pain. Recent hip surgery. Comparison: None Findings: AP and lateral radiographs of the chest were obtained. Two views, 3 exposures total. The lungs and pleural spaces are clear. Normal cardiomediastinal silhouette. The osseous structures are unremarkable. IMPRESSION: No acute cardiopulmonary disease. Dictated: Dima Alaniz MD On: 11/18/2019 4:46 PM Electronically signed by: Dima Alaniz MD On: 11/18/2019 4:47 PM Transcribed: MDM Number of Diagnoses or Management Options Acute chest pain: new and requires workup Prinzmetal angina (CMS/HCC): new and requires workup Amount and/or Complexity of Data Reviewed Tests in the radiology section of CPT??: reviewed and ordered Tests in the medicine section of CPT??: reviewed and ordered Discuss the patient with other providers: yes Independent visualization of images, tracings, or specimens: yes Risk of Complications, Morbidity, and/or Mortality Presenting problems: high Patient Progress Patient progress: stable Disposition: Admit Diagnoses: Prinzmetal angina (cms/hcc) Acute chest pain Clinical Impression: 1. Prinzmetal angina (CMS/HCC) 2. Acute chest pain Disposition: Admit Condition: Good . . . Jung Velez MD 11/18/192003 documented in this encounter Plan of Treatment Not on filedocumented as of this encounter Procedures Procedure Name Priority Date/Time Associated Comments Diagnosis INCENTIVE SPIROMETRY Routine 11/19/2019 6:00 AM RT EST LAVENDER TOP TUBE Routine 11/19/2019 5:36 AM Resu lts for this EST procedure are i n the results section. EXTRA TUBES Routine 11/19/2019 5:36 AM Results f or this EST procedure are i n the results section. TROPONIN I Timed 11/19/2019 4:51 AM Results f or this EST procedure are i n the results section. MAGNESIUM Routine 11/19/2019 4:51 AM Results f or this EST procedure are i n the results section. LIPID PANEL Routine 11/19/2019 4:51 AM Results f or this EST procedure are i n the results section. BASIC METABOLIC PANEL Routine 11/19/2019 4:51 AM Results for this EST procedure are i n the results section. TROPONIN I Timed 11/18/2019 10:59 Results for this PM EST procedure are i n the results section. APTT Routine 11/18/2019 10:59 Results for this PM EST procedure are i n the results section. PHOSPHORUS Routine 11/18/2019 10:59 Results for this PM EST procedure are i n the results section. INCENTIVE SPIROMETRY Routine 11/18/2019 10:06 RT PM EST INCENTIVE SPIROMETRY Routine 11/18/2019 10:06 RT PM EST INCENTIVE SPIROMETRY Routine 11/18/2019 10:06 RT PM EST INCENTIVE SPIROMETRY Routine 11/18/2019 10:06 RT PM EST INCENTIVE SPIROMETRY Routine 11/18/2019 10:06 RT PM EST TROPONIN I STAT 11/18/2019 8:13 PM Results f or this EST procedure are i n the results section. MAGNESIUM Add-On 11/18/2019 8:13 PM Results f or this EST procedure are i n the results section. CT CHEST ANGIO W AND STAT 11/18/2019 6:03 PM R esults for this WO IV CONTRAST EST procedure are in PROTOCOL the results section. XR CHEST PA & LATERAL STAT 11/18/2019 4:44 PM Results for this EST procedure are i n the results section. TROPONIN I STAT 11/18/2019 3:58 PM Results f or this EST procedure are i n the results section. CBC WITH AUTO STAT 11/18/2019 3:58 PM Results for this DIFFERENTIAL EST procedure are i n the results section. COMPREHENSIVE STAT 11/18/2019 3:58 PM Results for this METABOLIC PANEL EST procedure ar e in the results section. LIGHT BLUE TOP TUBE Routine 11/18/2019 3:49 PM Re sults for this EST procedure are i n the results section. EXTRA TUBES Routine 11/18/2019 3:49 PM Results f or this EST procedure are i n the results section. PROTIME-INR Add-On 11/18/2019 3:49 PM Results f or this EST procedure are i n the results section. ECG 12-LEAD STAT 11/18/2019 3:37 PM Results f or this EST procedure are i n the results section. documented in this encounter Results LAVENDER TOP TUBE (11/19/2019 5:36 AM EST) Analysis Performed At Patho logist Time Signature Extra Tube An Extra tube LAB CHEMISTRY 11/19/2019 [facility] was collected METHOD 7:02 AM EST from this patient. Please follow add on workflow or contact the Laboratory if you wish to place orders on this specimen. Specimen Anatomical Collection Method / Collection Time Recei debbie Time (Source) Location / Volume Laterality Blood Venous blood / Venipuncture / 11/19/2019 5:36 11/19/20 19 5:36 Unknown Unknown AM EST AM EST Aida Miller MD LAB BLOOD ORDERABLES Performing Organization Address City/[facility]/ZIP [facility] [place] Phon e Number [facility] [address] [place] [address] [phone] Troponin I (11/19/2019 4:51 AM EST) P athologist Signature Troponin I <0.012 0.000 - LAB CHEMISTRY 11/19/2019 [facility] 0.033 ng/mL METHOD 6:06 AM EST Specimen Anatomical Collection Method / Collection Time Recei debbie Time (Source) Location / Volume Laterality Blood Venous blood / Venipuncture / 11/19/2019 4:51 11/19/20 19 5:35 Unknown Unknown AM EST AM EST Aida Miller MD LAB BLOOD ORDERABLES Performing Organization Address [facility]/ZIP [facility] [place] Phon e Number [facility] [address] [place] [address] Magnesium (11/19/2019 4:51 AM EST) P athologist Signature Magnesium 2.0 1.6 - 2.3 LAB CHEMISTRY 11/19/2019 [facility] mg/dL METHOD 6:12 AM EST Specimen Anatomical Collection Method / Collection Time Recei dbebie Time (Source) Location / Volume Laterality Blood Venous blood / Venipuncture / 11/19/2019 4:51 11/19/20 19 5:35 Unknown Unknown AM EST AM EST Aida Miller MD LAB BLOOD ORDERABLES Performing Organization Address City/[facility] Phon e Number [facility] [address] [place] [address] (ABNORMAL) Basic metabolic panel (11/19/2019 4:51 AM EST) Analysis Performed At Patho logist Time Signature Glucose 98 65 - 105 LAB CHEMISTRY 11/19/2019 [facility] mg/dL METHOD 6:12 AM EST BUN 5 (L) 7 - 22 LAB CHEMISTRY 11/19/2019 [facility] mg/dL METHOD 6:12 AM EST Creatinine 0.7 0.7 - 1.2 LAB CHEMISTRY 11/19/2019 [facility] mg/dL METHOD 6:12 AM EST Sodium 138 137 - 145 LAB CHEMISTRY 11/19/2019 [facility] mmol/L METHOD 6:12 AM EST Potassium 4.0 3.5 - 5.3 LAB CHEMISTRY 11/19/2019 [facility] mmol/L METHOD 6:12 AM EST Chloride 106 98 - 107 LAB CHEMISTRY 11/19/2019 [facility] mmol/L METHOD 6:12 AM EST CO2 25 22 - 30 LAB CHEMISTRY 11/19/2019 [facility] mmol/L METHOD 6:12 AM EST Calcium 8.6 8.4 - 10.2 LAB CHEMISTRY 11/19/2019 [facility] mg/dL METHOD 6:12 AM EST eGFR >60 >60 LAB CHEMISTRY 11/19/2019 [facility] mL/min/1.7 METHOD 6:12 AM EST 3m*2 Anion Gap (K+ 7 3 - 12 LAB CHEMISTRY 11/19/2019 [facility] excluded) mmol/L METHOD 6:12 AM EST Specimen Anatomical Collection Method / Collection Time Recei debbie Time (Source) Location / Volume Laterality Blood Venous blood / Venipuncture / 11/19/2019 4:51 11/19/20 19 5:35 Unknown Unknown AM EST AM EST Aida Miller MD LAB BLOOD ORDERABLES Performing Organization Address City/State/ZIP Code Phon e Number [facility] [address] [place] [address] [phone] Lipid panel (11/19/2019 4:51 AM EST) Analysis Performed At Patho logist Time Signature Triglycerides 87 See Comment LAB CHEMISTRY 11/19/2019 [facility] mg/dL METHOD 6:23 AM EST Comment: Reference Values: Normal: ??<150 mg/dl / Borderline High: ??150-199 mg/dl / High: ??200-499 mg/dl / Very High: ??>=500 mg/dl Cholesterol 143 See Comment mg/dL LAB CHEMISTRY METHOD 019 6:23 AM [facility] EST Comment: Reference Values: Desirable: ??<200 mg/dl / Borderline Hig h: ??200 - 239 mg/dl / High: ??>=240 mg/dl HDL 64 See Comment mg/dL LAB CHEMISTRY METHOD 11/19/2019 6:23 AM EST [facility] Comment: Reference Values: Low: ??<40 mg/dl / Normal: ??40-59 mg/dl / Desirable: ??>=60 mg/dl LDL Direct 64 See Comment mg/dL LAB CHEMISTRY METHOD 11/19/20 19 6:23 AM EST [facility] Comment: Reference Values: Optimal: ??<100 mg/dl / Low Risk: ??100- 129 mg/dl / Borderline High: ??130-159 mg/dl / Very High: ??>=190 mg/dl VLDL Cholesterol Jj 17 <=30 mg/dL LAB CHEMISTRY METHOD 11/19 6:23 AM [facility] EST Specimen Anatomical Collection Method / Collection Time Recei debbie Time (Source) Location / Volume Laterality Blood Venous blood / Venipuncture / 11/19/2019 4:51 11/19/20 19 5:35 Unknown Unknown AM EST AM EST Aida Miller MD LAB BLOOD ORDERABLES Performing Organization Address City/[facility]/ZIP Code Phon e Number [facility] [address] [place] [address] Troponin I (11/18/2019 10:59 PM EST) P athologist Signature Troponin I <0.012 0.000 - LAB CHEMISTRY 11/18/2019 [facility] 0.033 ng/mL METHOD 11:36 PM EST Specimen Anatomical Collection Method / Collection Time Recei debbie Time (Source) Location / Volume Laterality Blood Venous blood / Venipuncture / 11/18/2019 10:59 019 Unknown Unknown PM EST 11:02 PM EST Aida Miller MD LAB BLOOD ORDERABLES Performing Organization Address City/[facility]/ZIP Code Phon e Number [facility] [address] [place] [address] [phone] APTT (11/18/2019 10:59 PM EST) P athologist Signature aPTT 26.6 22.5 - 30.0 LAB COAGULATION 11/18/2019 [facility] Seconds METHOD 11:19 PM EST Comment: [facility] [place] [facility] Laboratories therapeutic r genesis for Heparin therapy (0.3-0.7 U/mL) corresponds to an aPTT of 57.0-75.0 seco nds. Specimen Anatomical Collection Method / Collection Time Recei debbie Time (Source) Location / Volume Laterality Blood Venous blood / Venipuncture / 11/18/2019 10:59 019 Unknown Unknown PM EST 11:02 PM EST Aida Miller MD LAB BLOOD ORDERABLES Performing Organization Address City/[facility]/ZIP [facility] [place] Phon e Number [facility] [address] [place] [address] Phosphorus (11/18/2019 10:59 PM EST) athologist Signature Phosphorus 3.1 2.5 - 4.5 LAB CHEMISTRY 11/18/2019 [facility] mg/dL METHOD 11:42 PM EST Specimen Anatomical Collection Method / Collection Time Recei debbie Time (Source) Location / Volume Laterality Blood Venous blood / Venipuncture / 11/18/2019 10:59 019 Unknown Unknown PM EST 11:02 PM EST Aida Miller MD LAB BLOOD ORDERABLES Performing Organization Address [facility] Phon e Number [facility] [address] [place] [address] Magnesium (11/18/2019 8:13 PM EST) athologist Signature Magnesium 2.1 1.6 - 2.3 LAB CHEMISTRY 11/18/2019 [facility] mg/dL METHOD 10:35 PM EST Specimen Anatomical Collection Method / Collection Time Recei debbie Time (Source) Location / Volume Laterality Blood Venous blood / Venipuncture / 11/18/2019 8:13 11/18/20 19 8:24 Unknown Unknown PM EST PM EST Aida Miller MD LAB BLOOD ORDERABLES Performing Organization Address City/[facility] Phon e Number [facility] [address] [place] [address] Troponin I (11/18/2019 8:13 PM EST) athologist Signature Troponin I <0.012 0.000 - LAB CHEMISTRY 11/18/2019 [facility] 0.033 ng/mL METHOD 8:57 PM EST Specimen Anatomical Collection Method / Collection Time Recei debbie Time (Source) Location / Volume Laterality Blood Venous blood / Venipuncture / 11/18/2019 8:13 11/18/20 19 8:24 Unknown Unknown PM EST PM EST Jung Velez MD LAB BLOOD ORDERABLES Performing Organization Address City/State/ZIP Code Phon e Number [facility] [address] [place] [address] CT Chest Angio w and wo IV Contrast Protocol (11/18/2019 6:03 PM EST) Anatomical Region Laterality Modality Body Computed Tomography Specimen (Source) Anatomical Collection Method Collection Time Re ceived Time Location / / Volume Laterality 11/18/2019 6:24 PM EST Impressions 11/18/2019 6:34 PM EST 1. No pulmonary artery filling defects t o suggest acute pulmonary thromboembolism. 2. No evidence of pneumonia Dictated: Henry Ansari MD On: 11/18/20 19 6:24 PM Electronically signed by: Henry Ansari MD On: 11/18/2019 6:34 PM Transcribed: Narrative 11/18/2019 6:34 PM EST History: ??Short of breath, chest pain. Evaluate for acute pulmonary thromboembolism. Technique: Initial unenhanced monitoring slices were obtained through the pulmonary arteries for bolus tracking purposes. Then, multidetector CT acquisition was obtained through the pulmonary arteries a nd the chest during the IV administratio n of 80 mL of Omnipaque-350 nonionic contrast and 50 mL of saline. No adverse reaction. 1.5 mm and 5 mm axial images were reconstructed. ??3D angiographic post-pr ocessing was performed including coronal and coronal oblique MIP reconstructions. Findings: Quality of exam is excellent. Pulmonary arteries enhance normally and are normal in caliber. No filling defects are identified to suggest pulmonary thromboembolism. Heart: The heart is normal in size witho ut a pericardial effusion Lungs: Biapical pleural parenchymal scar ring. Calcified granuloma seen within the right upper lobe. No evidence of consolidation. Pleura: Without effusion. Mediastinum: Contains no enlarged nodes considered pathologic by size criteria. Chest wall structures: Unremarkable. Upper abdomen: Limited images are unrema rkable Osseous Structures: No destructive osseo us lesions Procedure Note Henry Ansari MD - 11/18/2019Formatt ing of this note might be different from the original. History: Short of breath, chest pain. Ev aluate for acute pulmonary thromboembolism. Technique: Initial unenhanced monitoring slices were obtained through the pulmonary arteries for bolus tracking purposes. Then, multidetector CT acquisition was obtained through the pulmonary arteries and the chest during the IV administration of 80 mL of Omnipaque-350 nonionic contrast and 50 mL of saline. No adverse reaction. 1.5 mm and 5 mm axial images were reconstructed. 3D angiographic post-processing was performed including coronal and coronal oblique [place] P reconstructions. Findings: Quality of exam is excellent. Pulmonary arteries enhance normally and are normal in caliber. No filling defects are identified to suggest pulmonary thromboembolism. Heart: The heart is normal in size witho ut a pericardial effusion Lungs: Biapical pleural parenchymal scar ring. Calcified granuloma seen within the right upper lobe. No evidence of consolidation. Pleura: Without effusion. Mediastinum: Contains no enlarged nodes considered pathologic by size criteria. Chest wall structures: Unremarkable. Upper abdomen: Limited images are unrema rkable Osseous Structures: No destructive osseo us lesions IMPRESSION: 1. No pulmonary artery filling defects t o suggest acute pulmonary thromboembolism. 2. No evidence of pneumonia Dictated: Henry Ansari MD On: 11/18/20 19 6:24 PM Electronically signed by: Henry Ansari MD On: 11/18/2019 6:34 PM Transcribed: Jung Velez MD IMG CT PROCEDURES X-ray Chest PA and Lateral (11/18/2019 4:44 PM EST) Anatomical Region Laterality Modality Body, Chest Digital Radiography Specimen (Source) Anatomical Collection Method Collection Time Re ceived Time Location / / Volume Laterality 11/18/2019 4:46 PM EST Impressions 11/18/2019 4:47 PM EST No acute cardiopulmonary disease. Dictated: Dima Alaniz MD On: 9 4:46 PM Electronically signed by: Dima Alaniz MD On: 11/18/2019 4:47 PM Transcribed: Narrative 11/18/2019 4:47 PM EST History: Chest pain. Recent hip surgery. Comparison: None Findings: AP and lateral radiographs of the chest were obtained. Two views, 3 exposures total. The lungs and pleural spaces are clear. Normal cardiomediastinal silhouette. The osseous structures are unremarkable. Procedure Note Dima Alaniz MD - 11/18/2019 History: Chest pain. Recent hip surgery. Comparison: None Findings: AP and lateral radiographs of the chest were obtained. Two views, 3 exposures total. The lungs and pleural spaces are clear. Normal cardiomediastinal silhouette. The osseous structures are unremarkable. IMPRESSION: No acute cardiopulmonary disease. Dictated: Dima Alaniz MD On: 9 4:46 PM Electronically signed by: Dima Alaniz MD On: 11/18/2019 4:47 PM Transcribed: Jung Velez MD IMG XR PROCEDURES Troponin I (11/18/2019 3:58 PM EST) athologist Signature Troponin I <0.012 0.000 - LAB CHEMISTRY 11/18/2019 [facility] 0.033 ng/mL METHOD 4:33 PM EST Specimen Anatomical Collection Method / Collection Time Recei debbie Time (Source) Location / Volume Laterality Blood Venous blood / Venipuncture / 11/18/2019 3:58 11/18/20 19 4:02 Unknown Unknown PM EST PM EST Jung Velez MD LAB BLOOD ORDERABLES Performing Organization Address City/State/ZIP Code Phon e Number [facility] [address], [place] [address] [phone] (ABNORMAL) Comprehensive metabolic panel (11/18/2019 3:58 PM EST) athologist Signature Glucose 101 65 - 105 LAB CHEMISTRY 11/18/2019 [facility] mg/dL METHOD 5:17 PM EST BUN 7 7 - 22 LAB CHEMISTRY 11/18/2019 [facility] mg/dL METHOD 5:17 PM EST Creatinine 0.7 0.7 - 1.2 LAB CHEMISTRY 11/18/2019 [facility] mg/dL METHOD 5:17 PM EST Sodium 141 137 - 145 LAB CHEMISTRY 11/18/2019 [facility] mmol/L METHOD 5:17 PM EST Potassium 4.3 3.5 - 5.3 LAB CHEMISTRY 11/18/2019 [facility] mmol/L METHOD 5:17 PM EST Comment: Slightly Hemolyzed Chloride 106 98 - 107 LAB CHEMISTRY 11/18/2019 5:17 PM [facility] mmol/L METHOD EST CO2 22 22 - 30 mmol/L LAB CHEMISTRY 11/18/2019 5:17 PM [facility] METHOD EST Calcium 9.9 8.4 - 10.2 LAB CHEMISTRY 11/18/2019 5:17 PM [facility] mg/dL METHOD EST Total Protein 7.8 6.3 - 8.2 g/dL LAB CHEMISTRY 11/18/2019 5:17 P M [facility] METHOD EST Albumin 4.7 3.5 - 5.0 g/dL LAB CHEMISTRY 11/18/2019 5:17 PM [facility] METHOD EST AST 36 14 - 36 U/L LAB CHEMISTRY 11/18/2019 5:17 PM [facility] AB METHOD EST Alkaline 50 38 - 126 U/L LAB CHEMISTRY 11/18/2019 5:17 PM [facility] Phosphatase METHOD EST ALT (SGPT) 26 0 - 34 U/L LAB CHEMISTRY 11/18/2019 5:17 PM [facility] AB METHOD EST Total Bilirubin 0.6 0.2 - 1.3 LAB CHEMISTRY 11/18/2019 5:17 PM M LAB mg/dL METHOD EST eGFR >60 >60 LAB CHEMISTRY 11/18/2019 5:17 PM [facility] mL/min/1.73m*2 METHOD EST Anion Gap (K+ 13 (H) 3 - 12 mmol/L LAB CHEMISTRY 11/18/2019 5:17 PM [facility] excluded) METHOD EST Specimen Anatomical Collection Method / Collection Time Recei debbie Time (Source) Location / Volume Laterality Blood Venous blood / Venipuncture / 11/18/2019 3:58 11/18/20 19 4:02 Unknown Unknown PM EST PM EST Jung Velez MD LAB BLOOD ORDERABLES Performing Organization Address City/State/ZIP Code Phon e Number [facility] [address] [place] [address] CBC auto differential (11/18/2019 3:58 PM EST) Component Value Ref Test Method Analysis Performed At Patho logist Range Time Signature WBC 5.14 4.00 - LAB 11/18/2019 [facility] 11.00 HEMETOLOGY 4:08 PM EST K/uL METHOD RBC 4.15 3.80 - LAB 11/18/2019 [facility] 5.00 HEMETOLOGY 4:08 PM EST M/uL METHOD Hemoglobin 13.0 11.0 - LAB 11/18/2019 [facility] 15.0 HEMETOLOGY 4:08 PM EST g/dL METHOD Hematocrit 39 35 - 45 LAB 11/18/2019 [facility] % HEMETOLOGY 4:08 PM EST METHOD MCV 94 81 - 99 LAB 11/18/2019 [facility] fL HEMETOLOGY 4:08 PM EST METHOD MCH 31 28 - 32 LAB 11/18/2019 [facility] pg HEMETOLOGY 4:08 PM EST METHOD MCHC 33 32 - 36 LAB 11/18/2019 [facility] g/dL HEMETOLOGY 4:08 PM EST METHOD RDW-SD 42.3 35.0 - LAB 11/18/2019 [facility] 46.0 fL HEMETOLOGY 4:08 PM EST METHOD RDW-CV 12.1 11.0 - LAB 11/18/2019 [facility] 15.0 % HEMETOLOGY 4:08 PM EST METHOD MPV 11.0 9.0 - LAB 11/18/2019 [facility] 12.5 fL HEMETOLOGY 4:08 PM EST METHOD Platelets 201 130 - LAB 11/18/2019 [facility] 400 K/uL HEMETOLOGY 4:08 PM EST METHOD nRBC 0 <=0 /100 LAB 11/18/2019 [facility] WBCs HEMETOLOGY 4:08 PM EST METHOD Neutrophils % 57 40 - 75 LAB 11/18/2019 [facility] % HEMETOLOGY 4:08 PM EST METHOD Lymphocytes % 31 15 - 45 LAB 11/18/2019 [facility] % HEMETOLOGY 4:08 PM EST METHOD Monocytes % 10 2 - 12 % LAB 11/18/2019 [facility] HEMETOLOGY 4:08 PM EST METHOD Eosinophils % 1 0 - 6 % LAB 11/18/2019 [facility] HEMETOLOGY 4:08 PM EST METHOD Basophils % 1 0 - 2 % LAB 11/18/2019 [facility] HEMETOLOGY 4:08 PM EST METHOD Immature 0 % LAB 11/18/2019 [facility] Granulocytes HEMETOLOGY 4:08 PM EST METHOD Neutrophils 2.93 1.60 - LAB 11/18/2019 [facility] Absolute 7.50 HEMETOLOGY 4:08 PM EST K/uL METHOD Lymphocytes 1.61 0.60 - LAB 11/18/2019 [facility] Absolute 4.50 HEMETOLOGY 4:08 PM EST K/uL METHOD Monocytes 0.49 0.10 - LAB 11/18/2019 [facility] Absolute 1.20 HEMETOLOGY 4:08 PM EST K/uL METHOD Eosinophils 0.06 0.00 - LAB 11/18/2019 [facility] Absolute 0.60 HEMETOLOGY 4:08 PM EST K/uL METHOD Basophils 0.04 0.00 - LAB 11/18/2019 [facility] Absolute 0.20 HEMETOLOGY 4:08 PM EST K/uL METHOD Immature 0.01 K/UL LAB 11/18/2019 [facility] Granulocytes HEMETOLOGY 4:08 PM EST Absolute METHOD Differential Auto LAB 11/18/2019 [facility] Type HEMETOLOGY 4:08 PM EST METHOD Morphology NOT LAB 11/18/2019 [facility] Review PERFORMED HEMETOLOGY 4:08 PM EST METHOD Specimen Anatomical Collection Method / Collection Time Recei debbie Time (Source) Location / Volume Laterality Blood Venous blood / Venipuncture / 11/18/2019 3:58 11/18/20 19 4:02 Unknown Unknown PM EST PM EST Jung Velez MD LAB BLOOD ORDERABLES Performing Organization Address City/[facility] Phon e Number [facility] [address] [place] [address] Protime-INR (11/18/2019 3:49 PM EST) P athologist Signature PT 10.4 9.2 - 11.2 LAB COAGULATION 11/18/2019 [facility] seconds METHOD 10:27 PM EST INR 1.0 See Comment LAB COAGULATION 11/18/2019 [facility] METHOD 10:27 PM EST Comment: The suggested therapeutic INR r genesis for patients receiving coumadin varies in certain conditions. In general, an IN R of 2-3 is recommended. A range of 2.5-3.5 is recommended for mechanical heart valv e patients and in the presence of a lupus anticoagulant (per chest guidelines). Specimen Anatomical Collection Method Collection Time Receive d Time (Source) Location / / Volume Laterality Blood Venous blood / 11/18/2019 3:49 PM 019 4:04 Unknown EST PM EST Aida Miller MD LAB BLOOD ORDERABLES Performing Organization Address [facility] Phon e Number [facility] [address] [place] [address] [phone] LIGHT BLUE TOP TUBE (11/18/2019 3:49 PM EST) Patholo gist Method Time Signature Extra Tube An Extra tube 11/18/2019 [facility] was collected 6:01 PM EST from this patient. Please follow add on workflow or contact the Laboratory if you wish to place orders on this specimen. Specimen Anatomical Collection Method Collection Time Receive d Time (Source) Location / / Volume Laterality Blood Venous blood / 11/18/2019 3:49 PM 019 4:04 Unknown EST PM EST Jung Velez MD LAB BLOOD ORDERABLES Performing Organization Address City/State/ZIP Code Phon e Number [facility] [address] [place] [address] [phone] ECG 12 lead (11/18/2019 3:37 PM EST) P athologist Signature MS Interval 155 ms [facility] QRSD Interval 67 ms [facility] QT Interval 427 ms [facility] QTcB 468 ms [facility] QTcF 454 ms [facility] QRS Horizontal 6 deg [facility] [place] [facility] QRS [place] 78 deg [facility] Specimen (Source) Anatomical Collection Method Collection Time Re ceived Time Location / / Volume Laterality 11/18/2019 3:37 PM EST Impressions [facility] - 11/18/2019 5:25 PM EST Sinus rhythm normal P axis, V-rate 50-99 Consider right atrial enlargement P >0.24mV limb lead Narrative This result has an attachment that is no t available. Procedure Note Robson Mendoza MD - 11/18/2019F ormatting of this note might be different from the original. IMPRESSION: Sinus rhythm normal P axis, V-rate 50-99 Consider right atrial enlargement P >0.24mV limb lead Jung Velez MD ECG ORDERABLES Performing Organization Address City/[facility]/ZIP Code Phon e Number [facility] [address] [place] [address] documented in this encounter Visit Diagnoses Diagnosis Prinzmetal angina (CMS/HCC) - Primary Prinzmetal angina Acute chest pain Unspecified chest pain documented in this encounter Admitting Diagnoses Diagnosis Prinzmetal angina (CMS/HCC) Prinzmetal angina documented in this encounter Administered Medications Inactive Administered Medications - up to 3 most recent administrations Medication Order MAR Action Action Date Dose Rate Site acetaminophen (TYLENOL) suppository 650 mg 650 mg, rectal, Every 4 hours PRN, mild pain, Starting on Thu11/18/19 at 2206, Give if unable to take oral. acetaminophen (TYLENOL) tablet 1,000 mg Given 11/18/2019 4:58 PM EST 1,000 mg 1,000 mg, oral, Once, On Thu11/18/19 at 1645, For 1 dose acetaminophen (TYLENOL) tablet 650 mg Given 11/19/2019 5:24 PM EST 650 mg 650 mg, oral, Every 4 hours PRN, mild pain, Starting on Thu11/18/19 at 2206 Given 11/19/2019 12:42 PM EST 650 mg Given 11/19/2019 8:23 AM EST 650 mg bisacodyl (DULCOLAX) suppository 10 mg Given 11/19/2019 5:23 PM EST 10 mg 10 mg, rectal, Daily, First dose on 11/19/19 at 1645 dilTIAZem extended release (CARDIZEM CD) 24 Given 11/19/2019 2:09 PM EST 300 mg hr capsule/tablet 300 mg 300 mg, oral, Daily, First dose on 11/19/19 at 1400, Do not crush, chew, or split. enoxaparin (LOVENOX) syringe Given 11/19/2019 11:51 AM EST 40 mg Left Lower Abdomen 40 mg 40 mg, subcutaneous, Daily, First dose on 11/19/19 at 1000 iohexol (OMNIPAQUE Contrast/Radiopharm Given 11/18/2019 5:56 80 mL Left Antecubital 350) 350 mg PM EST iodine/mL injection 100 mL 100 mL, intravenous, Once in imaging, contrast, Starting on Thu11/18/19 at 1819, For 1 dose isosorbide dinitrate (ISORDIL) tablet 20 mg Given 11/19/2019 2:11 PM EST 20 mg 20 mg, oral, 3 times daily, First dose on 11/19/19 at 1400 lactulose (CHRONULAC) 10 gram/15 mL solution Given 9 5:23 PM EST 30 mL 30 mL 30 mL, oral, 4 times daily, First dose on 11/19/19 at 1700 LORazepam (ATIVAN) injection 0.5 mg Given 11/19/2019 12:31 AM EST 0.5 mg 0.5 mg, intravenous, Every 6 hours PRN, anxiety, Starting on Thu11/18/19 at 2206, Inspector Balance [employer]ing recommends diluting prior to IV use. LORazepam (ATIVAN) injection 0.5 mg Given 11/19/2019 11:52 AM EST 0.5 mg 0.5 mg, intravenous, Every 4 hours PRN, anxiety, Starting on 11/19/19 at 0115, Inspector Balance [employer]ing recommends diluting prior to IV use. magnesium citrate solution 296 mL Given 11/19/2019 12:41 PM EST 296 mL 296 mL, oral, Once, On Thu11/19/19 at 1130, For 1 dose morphine PF 2 mg/mL injection 2 mg Given 11/18/2019 10:26 PM EST 2 mg 2 mg, intravenous, Every 4 hours PRN, moderate pain, Starting on Thu11/18/19 at 2206, If unable to take oral. morphine PF 2 mg/mL injection 2 mg 2 mg, intravenous, Every 3 hours PRN, mo derate pain, Starting on Thu11/19/19 at 0115, If unable to take oral. nitroGLYCERIN (TRIDIL) 25 Rate/Dose Change 11/18/2019 11:45 PM 25 m cg/min 15 mL/hr mg in dextrose 5% 250 mL EST (100 mcg/mL) infusion 5-200 mcg/min (3-120 mL/hr), intravenous, Continuous, Starting on Thu11/18/19 at 1936, Initiate nitroglycerin infusion at 5 mcg/min if SBP above 120 mmHg. Hold for sbp <95mmhg Titrate by 10 mcg/min every 5 minutes. Do not exceed 200 mcg/min. Rate/Dose Change 11/18/2019 11:27 PM EST 20 mcg/min 12 mL/hr Rate/Dose Verify 11/18/2019 9:35 PM EST 15 mcg/min 9 mL/hr polyethylene glycol (GLYCOLAX) packet 17 g Given 11/19/2019 4:23 PM EST 17 g 17 g, oral, Daily PRN, constipation, constipation, Starting on Thu11/18/19 at 2206, 1st line for treatment of constipation - give scheduled if no bowel movement in past 48 hours ranolazine (RANEXA) 12 hr tablet 500 mg Given 11/19/2019 10:32 AM EST 500 mg 500 mg, oral, 2 times daily, First dose on Thu11/19/19 at 0015, Do not crush, chew, or split. sodium chloride 0.9 % flush 3 mL Given 11/18/2019 5:01 PM EST 3 mL 3 mL, intravenous, 3 times daily, First dose on Thu11/18/19 at 1549 sodium chloride 0.9 % flush 3 mL Given 11/19/2019 2:11 PM EST 3 mL 3 mL, intravenous, 3 times daily, First dose on Thu11/18/19 at 2215 sodium chloride 0.9 % flush 3 mL Given 11/19/2019 2:11 PM EST 3 mL 3 mL, intravenous, 3 times daily, First dose on Thu11/19/19 at 0600 sodium chloride 0.9 % primary fluid for IVPB 20 mL 20 mL, intravenous, at 20 mL/hr, Administer over 1 [place] rs, As needed, as primary fluid with IVPB medication, Starting on Thu11/18/19 at 2206, To be used as primary fluid for IVPB administration if no maintenance fluid is ordered and IVPB medication is compatible. If incompatibl e, contact physician for alternate fluid order. sodium chloride 0.9 % primary fluid for IVPB 20 mL 20 mL, intravenous, at 20 mL/hr, Administer over 1 [place] rs, As needed, as primary fluid with IVPB medication, Starting on Thu11/19/19 at 0112, To be used as primary fluid for IVPB administration if no maintenance fluid is ordered and IVPB medication is compatible. If incompatibl e, contact physician for alternate fluid order. sodium chloride 0.9 Rate/Dose Verify 11/18/2019 9:35 PM 125 mL/hr 12 5 mL/hr percent infusion EST 125 mL/hr, intravenous, Continuous, Starting on Thu11/18/19 at 1936 Restarted 11/18/2019 8:13 PM EST 125 mL/hr 125 mL/hr Restarted 11/18/2019 8:12 PM EST 125 mL/hr 125 mL/hr sodium chloride 0.9 percent New Bag 11/19/2019 2:12 PM EST 100 mL/ hr 100 mL/hr infusion 100 mL/hr, intravenous, Continuous, Starting on Thu11/18/19 at 2215 New Bag 11/19/2019 4:05 AM EST 100 mL/hr 100 mL/hr New Bag 11/18/2019 10:56 PM EST 100 mL/hr 100 mL/hr sodium phosphates (FLEET) enema 1 enema Given 11/19/2019 5:20 AM EST 1 enema 1 enema, rectal, Once, On 11/19/19 at 0530, For 1 dose documented in this encounter Active and Recently Administered Medications Times are shown in EST. Scheduled Medication Order 11/17/2019 11/18/2019 11/19/2019 acetaminophen (TYLENOL) tablet 1,000 mg (COMPLETED) 1658 (Given - Provider: Carmelita Perez, RN) 1,000 mg, oral, Once, On 11/18/19 at 1645, For 1 dose aspirin delayed release tablet 81 mg 1000 (Not Given - Provider: Ashlyn Sy RN - Reason: Patient/family refused) 81 mg, oral, Daily, First dose on 11/19/19 at 1000 bisacodyl (DULCOLAX) suppository 10 mg 1723 (Given - Provider: Ashlyn Sy, TINA) 10 mg, rectal, Daily, First dose on 11/19/19 at 1645 coenzyme Q-10 capsule 100 mg 100 0 (Hold - Provider: Ashlyn yS RN - Reason: Patient/family refused) 100 mg, oral, Daily, First dose on 11/19/19 at 1000 dilTIAZem extended release (CARDIZEM CD) 24 hr capsule/tablet 30 0 mg 1409 (Given - Provider: Ashlyn Sy, TINA) 300 mg, oral, Daily, First dose on Sat 1 01/20/19 at 1400, Do not crush, chew, or split. enoxaparin (LOVENOX) syringe 40 mg 1151 (Given - Provider: Ashlyn Sy, TINA) 40 mg, subcutaneous, Daily, First dose on 11/19/19 at 1000 estradiol (VIVELLE-DOT) 0.075 mg/24 hr 1 patch 1 patch, transdermal, 2 times weekly (On ce per day on Thu), First dose on Thu11/21/19 at 1000, NF, please bring pt's home med to RX to I.d. isosorbide dinitrate (ISORDIL) tablet 20 mg 1411 (Given - Provider: Ashlyn Sy RN) 20 mg, oral, 3 times daily, First dose on 11/19/19 at 1400 lactulose (CHRONULAC) 10 gram/15 mL solution 30 mL 1723 (Given - Provider: Ashlyn Sy RN) 30 mL, oral, 4 times daily, First dose on 11/19/19 at 1700 magnesium citrate solution 296 mL (COMPLETED) 1241 (Given - Provider: Ashlyn Sy, TINA) 296 mL, oral, Once, On 11/19/19 at 1130, For 1 dose medroxyPROGESTERone (PROVERA) tablet 2.5 mg 1000 (Not Given - Provider: Ashlyn Sy RN - Reason: Patient/family refused) 2.5 mg, oral, Daily, First dose on Sat 1 01/20/19 at 1000, HAZARDOUS DRUG WEAR GLOVES DO NOT CRUSH OR SPLIT WITHOUT PROPER TECHNIQUE OR EQUIPMENT/PPE, Indications: pt to confirm dosage DOS morphine PF 2 mg/mL injection 2 mg 2202 (Not Given - Provider: Allison Miller RN - Reason: Other - Comment: received q4 hour prn dose) 2 mg, intravenous, Once, Thu11/18/19 at 2202, For 1 dose pantoprazole (PROTONIX) EC tablet 40 mg 0700 (Hold - Provider: Allison Miller RN - Reason: NPO) 40 mg, oral, Every morning before breakf ast, First dose on 11/19/19 at 0700, Do not crush, chew, or split. ranolazine (RANEXA) 12 hr tablet 500 mg 0015 (Not Given - Provider: Allison Miller RN - Reason: Other - Comment: patient states she took in ER)1032 (Given - Provider: Ashlyn Sy, TINA) 500 mg, oral, 2 times daily, First dose on 11/19/19 at 0015, Do not crush, chew, or split. rosuvastatin (CRESTOR) tablet 40 mg 1000 (Not Given - Provider: Ashlyn Sy RN - Reason: Patient/family refused) 40 mg, oral, Daily, First dose on 11/19/19 at 1000 sodium chloride 0.9 % flush 3 mL (CANCELED) 1701 (Given - Provider: Carmelita Perez RN)2200 (Not Given - Provider: Allison Miller RN - Reason: Other - Comment: IVF infusing) 3 mL, intravenous, 3 times daily, First dose on Thu11/18/19 at 1549 sodium chloride 0.9 % flush 3 mL(Linked Group 1) 2215 (Not Given - Provider: Allison Miller RN - Reason: Other - Comment: IVF infusing) 0600 (Not Given - Provider: Allison Miller RN - Reason: Other - Comment: IVF infusing)1411 (Given - Provider: Ashlyn Sy, TINA) 3 mL, intravenous, 3 times daily, First dose on Thu11/18/19 at 2215 sodium chloride 0.9 % flush 3 mL(Linked Group 2) 0600 (Not Given - Provider: Allison Miller RN - Reason: Other - Comment: IVF infusing)1411 (Given - Provider: Ashlyn Sy, TINA) 3 mL, intravenous, 3 times daily, First dose on 11/19/19 at 0600 sodium phosphates (FLEET) enema 1 enema (COMPLETED) 0520 (Given - Provider: Allison Miller, TINA) 1 enema, rectal, Once, On 11/19/19 at 0530, For 1 dose traZODone (DESYREL) tablet 25 mg 0015 (Not Given - Provider: Allison Miller RN - Reason: Other - Comment: patient declined) 25 mg, oral, Nightly, First dose on 11/19/19 at 0015, Indications: 25-50mg nightly Continuous Medication Order 11/17/2019 11/18/2019 11/19/2019 nitroGLYCERIN (TRIDIL) 25 mg in dextrose 5% 250 mL (100 mcg/mL) infusion (CANCELED) 2010 (New Bag - Provider: Monico Vickers, TINA)2011 (Paused - Provider: Shreyas Guillaume, TINA)2011 (Restarted - Provider: Shreyas Guillaume, TINA)2011 (Paused - Provider: Shreyas Guillaume, RN)2011 (Restarted - Provider: Shreyas Guillaume RN) 1500 (Stopped - Provider: Ashlyn Sy RN) 5-200 mcg/min (3-120 mL/hr), intravenous , at 3-120 mL/hr, Continuous, Starting on Thu11/18/19 at 1936, Initiate nitroglycerin infusion at 5 mcg/min if SBP above 120 mmHg. Hold for sbp <95mmhg Titrat 2012 (Paus ed - Provider: Shreyas Guillaume RN)2012 (Restarted - Provider: Shreyas Guillaume RN)2103 (Rate/Dose Change - Provider: Shreyas Guillaume RN)2105 (Rate/Dose Verify - Provider: Shreyas Guillaume RN)2114 (Paused - Provider: Shreyas Guillaume RN) e by 10 mcg/min every 5 minutes. Do not exceed 200 mcg/min. 2115 (Restarted - Provider: Shreyas Guillaume RN)2134 (Rate/Dose Verify - Provider: Shreyas Guillaume RN)2326 (Rate/Dose Change - Provider: Allison Miller, RN)2345 (Rate/Dose Change - Provider: Allison Miller, RN) sodium chloride 0.9 percent infusion (CANCELED) 2011 (New Bag - Provider: Racquel Vickers RN)2011 (Paused - Provider: Shreyas Guillaume RN)2011 (Restarted - Provider: Shreyas Guillaume RN)2011 (Paused - Provider: Shreyas Guillaume RN)2011 (Restarted - Provider: Shreyas Guillaume RN) 125 mL/hr, intravenous, at 125 mL/hr, Co ntinuous, Starting on Thu11/18/19 at 1936 2012 (Paused - Provider: Leonardo Guillaume RN)2012 (Restarted - Provider: Shreyas Guillaume RN)2134 (Rate/Dose Verify - Provider: Shreyas Guillaume RN) sodium chloride 0.9 percent infusion 225 6 (New Bag - Provider: Allison Miller, TINA) 0405 (New Bag - Provider: Allison Miller , RN)1412 (New Bag - Provider: Ashlyn Sy RN) 100 mL/hr, intravenous, at 100 mL/hr, Co ntinuous, Starting on Thu11/18/19 at 2215 PRN Medication Order 11/17/2019 11/18/2019 11/19/2019 acetaminophen (TYLENOL) suppository 650 mg(Linked Group 3) 2303 (See Alternative - Provider: Allison Miller RN) 0823 (See Alternative - Provider: Ashlyn Sy RN)1242 (See Alternative - Provider: Ashlyn Sy RN)1724 (See Alternative - Provider: Ashlyn Sy RN) 650 mg, rectal, Every 4 hours PRN, mild pain, Starting on Thu11/18/19 at 2206, Give if unable to take oral. acetaminophen (TYLENOL) tablet 650 mg(Linked Group 3) 2303 (Given - Provider: Allison Miller RN) 0823 (Given - Provider: Lino Dexter N)1242 (Given - Provider: Ashlyn Sy RN)1724 (Given - Provider: Ashlyn Sy RN) 650 mg, oral, Every 4 hours PRN, mild pain, Starting on 10/24 at 2206 alum-mag hydroxide-simeth (MAALOX) 200-200-20 mg/5 mL suspension 20 mL 20 mL, oral, As needed, Serum magnesium between 1.3-1.8 mg/dL, patient asymptomatic, and unable to swallow tablets, Starting Thu11/18/19 at 2206, 20 mL contains 27 mEq elemental magnesium. glycerin (adult) suppository 2 g 2 g (1 suppository), rectal, Daily PRN, constipation, Starting Thu11/18/19 at 2206, 2nd line for treatment of constipation - give scheduled (in addition to 1st line agent) if no bowel movement in past 72 hours iohexol (OMNIPAQUE 350) 350 mg iodine/mL injection 100 mL (C OMPLETED) 1756 (Contrast/Radiopharm Given - Provider: Edenilson Stein) 100 mL, intravenous, Once in imaging, co ntrast, Starting on Thu11/18/19 at 1819, For 1 dose LORazepam (ATIVAN) injection 0.5 mg (CANCELED) 0031 (Given - Provider: Allison Miller RN) 0.5 mg, intravenous, Every 6 hours PRN, anxiety, Starting on Thu11/18/19 at 2206, Inspector Balance Truing recommends diluting prior to IV use. LORazepam (ATIVAN) injection 0.5 mg 1152 (Given - Provider: Ashlyn Sy RN) 0.5 mg, intravenous, Every 4 hours PRN, anxiety, Starting on 11/19/19 at 0115, Inspector Balance Truing recommends diluting prior to IV use. magnesium oxide tablet 1,000 mg 1,000 mg, oral, As needed, Serum magnesi um 1.3-1.8 mg/dL, patient asymptomatic, and able to swallow tablets, Starting Thu11/18/19 at 2206, Each 500 mg tablet equals 20 mEq elemental magnesium. magnesium sulfate 2 g IVPB 50 mL 2 g, intravenous, at 50 mL/hr, Administe r over 1 Hours, As needed, Serum magnesium </= 1.8 mg/dL and patient asymptomatic(no arrythmias or acute [place])., Starting Thu11/18/19 at 2206, Use if patient unable to take oral meds. magnesium sulfate 3 g in sodium chloride 0.9 percent 100 mL IVPB 3 g, intravenous, at 100 mL/hr, Administ er over 1 Hours, As needed, Serum Magnesium </= 1.2 mg/dL, patient is symptomatic(arrythmias or acute [place]), and weighs 50 kg or less., Starting Thu11/18/19 at 2206 magnesium sulfate 4 gram/100 mL (4 %) IVPB 4 g 4 g, intravenous, at 50 mL/hr, Administe r over 2 Hours, As needed, Serum Magnesium </= 1.2 mg/dL, patient symptomatic(arrythmias or acute [place]), and over 50 kg., Starting Thu11/18/19 at 2206 morphine PF 2 mg/mL injection 2 mg (CANCELED) 2226 (Given - Provider: Allison Miller RN) 2 mg, intravenous, Every 4 hours PRN, mo derate pain, Starting on Thu11/18/19 at 2206, If unable to take oral. morphine PF 2 mg/mL injection 2 mg 2 mg, intravenous, Every 3 hours PRN, mo derate pain, Starting on Thu11/19/19 at 0115, If unable to take oral. naloxone (NARCAN) 0.4 mg/mL injection 0.1 mg 0.1 mg, intravenous, As needed, respirat ory depression, Starting Thu11/18/19 at 2206, If respiratory rate is less than 8 breaths per minute or patient is difficult to arouse, administer naloxone slow I V push, stop all narcotics, and contact physician. Repeat as ordered every 2-3 minutes until patient's respiratory rate is greater than 12 breaths per minute. ondansetron ODT (ZOFRAN-ODT) tablet 4 mg 4 mg, oral, Every 8 hours PRN, nausea, v omiting, Starting Thu11/18/19 at 2206, Give first, if able to tolerate po. polyethylene glycol (GLYCOLAX) packet 17 g 1623 (Given - Provider: Ashlyn Sy RN) 17 g, oral, Daily PRN, constipation, con stipation, Starting on Thu11/18/19 at 2206, 1st line for treatment of constipation - give scheduled if no bowel movement in past 48 hours potassium bicarbonate (K-LYTE) 25 mEq effervescent tablet 50 mEq 50 mEq, oral, As needed, For Potassium R eplacement, if Crcl >/= 30 mL/min, Starting Thu11/18/19 at 2206, Give each 50 mEq dose every 2 hours until total dose is given. K level mmol/L Dose Less than 3.0 Use IV Replacement 3.0-3.4 100 mEq 3.5-3.9 50 mEq Notify physician if K<2.5 potassium chloride 40 mEq in dextrose 5 % 500 mL infusion 125 mL/hr, intravenous, at 125 mL/hr, Co ntinuous PRN, For K 3.5-3.9 mmol/L, if CrCl >/= 30 mL/min, Starting Thu11/18/19 at 2206, For peripheral line. potassium chloride 60 mEq in dextrose 5 % 600 mL infusion 100 mL/hr, intravenous, at 100 mL/hr, Co ntinuous PRN, For K 3.0-3.4 mmol/L, if CrCl >/= 30 mL/min, Starting Thu11/18/19 at 2206, For peripheral line. potassium chloride 80 mEq in dextrose 5 % 1,000 mL infusion 125 mL/hr, intravenous, at 125 mL/hr, Co ntinuous PRN, For K < 3.0 mmol/L, if CrCl >/= 30 mL/min, Starting Thu11/18/19 at 2206, For peripheral line. If <2.5, call MD and check magnesium level. sodium chloride 0.9 % primary fluid for IVPB 20 mL(Linked Group 4) 20 mL, intravenous, at 20 mL/hr, Adminis ter over 1 Hours, As needed, as primary fluid with IVPB medication, Starting on Thu11/18/19 at 2206, To be used as primary fluid for IVPB administration if no ma intenance fluid is ordered and IVPB medi cation is compatible. If incompatible, contact physician for alternate fluid order. sodium chloride 0.9 % primary fluid for IVPB 20 mL(Linked Group 2) 20 mL, intravenous, at 20 mL/hr, Adminis ter over 1 Hours, As needed, as primary fluid with IVPB medication, Starting on Thu11/19/19 at 0112, To be used as primary fluid for IVPB administration if no ma intenance fluid is ordered and IVPB medi cation is compatible. If incompatible, contact physician for alternate fluid order. Linked Groups Order Group 1: Insert peripheral IV (CANCELED) Once, Thu11/18/19 at 2207, For 1 occurr ence
Assess Peripheral IV Site(s) Qshift; Assess site for evidence of phlebitis, infiltration, infection, or sepsis., Change Peripheral IV Catheter Site at 1000 Q4days; Change all IV catheters that are started outside the hospital or under questionable circumstances within 24 hours., Change Peripheral IV tubing at 1000 Q4days; Label tubing with date to be changed; Tubing that is not capped of f is contaminated and must be changed., Change Peripheral IV Line Dressing PRN; Change PRN For any leakage, soiled dressings, or unoclusiveness between routine IV site changes., STAT And Maintain IV access (CANCELED) Until discontinued, Starting Thu 9 at 2207, Until Specified
Routine And Saline lock IV(PRN Adapter) (CANCELED) Once, Thu11/18/19 at 220, For 1 occurr ence
Assess Peripheral IV Site(s) Qshift; Assess site for evidence of phlebitis, infiltration, infection, or sepsis. Change Peripheral IV Catheter Site a t 1000 Q4days; Change all IV catheters t hat are started outside the hospital or under questionable circumstances within 24 hours. Change Peripheral IV tubing at 1000 Q4days; Label tubing with date to be changed; Tubing that is not capped off is contaminated and must be changed. Change Peripheral IV Line Dressing PRN; Change PRN For any leakage, soiled dressings, or unoclusiveness between routine IV si te changes., Assess Peripheral IV Site(s ) Qshift; Assess site for evidence of phlebitis, infiltration, infection, or sepsis., Change Peripheral IV Catheter Site at 1000 Q4days; Change all IV catheters t hat are started outside the hospital or under questionable circumstances within 24 hours., Change Peripheral IV tubing at 1000 Q4days; Label tubing with date to be changed; Tubing that is not capped off is contaminated and must be changed., C hange Peripheral IV Line Dressing PRN; Change PRN For any leakage, soiled dressings, or unoclusiveness between routine IV site changes., Routine And sodium chloride 0.9 % flush 3 mLJump to med 3 mL, intravenous, 3 times daily, First dose on Thu11/18/19 at 2215 And sodium chloride 0.9 % primary fluid for IVPB 20 mL (CANCELED) 20 mL, intravenous, at 20 mL/hr, Adminis ter over 1 Hours, As needed, as primary fluid with IVPB medication, Starting Thu11/18/19 at 2206
To be used as primary fluid for IVPB administration if no maintenance fluid is ordered and IVPB medication is compatible. If incompatible, contact physician for alternate fluid order.
Group 2: Insert peripheral IV (CANCELED) Once, 11/19/19 at 0113, For 1 occurr ence
Assess Peripheral IV Site(s) Qshift; Assess site for evidence of phlebitis, infiltration, infection, or sepsis., Change Peripheral IV Catheter Site at 1000 Q4days; Change all IV catheters that are started outside the hospital or under questionable circumstances within 24 hours., Change Peripheral IV tubing at 1000 Q4days; Label tubing with date to be changed; Tubing that is not capped of f is contaminated and must be changed., Change Peripheral IV Line Dressing PRN; Change PRN For any leakage, soiled dressings, or unoclusiveness between routine IV site changes., STAT And Maintain IV access (CANCELED) Until discontinued, Starting Sat 9 at 0113, Until Specified
Routine And Saline lock IV(PRN Adapter) (CANCELED) Once, 11/19/19 at 0113, For 1 occurr ence
Assess Peripheral IV Site(s) Qshift; Assess site for evidence of phlebitis, infiltration, infection, or sepsis. Change Peripheral IV Catheter Site a t 1000 Q4days; Change all IV catheters t hat are started outside the hospital or under questionable circumstances within 24 hours. Change Peripheral IV tubing at 1000 Q4days; Label tubing with date to be changed; Tubing that is not capped off is contaminated and must be changed. Change Peripheral IV Line Dressing PRN; Change PRN For any leakage, soiled dressings, or unoclusiveness between routine IV si te changes., Assess Peripheral IV Site(s ) Qshift; Assess site for evidence of phlebitis, infiltration, infection, or sepsis., Change Peripheral IV Catheter Site at 1000 Q4days; Change all IV catheters t hat are started outside the hospital or under questionable circumstances within 24 hours., Change Peripheral IV tubing at 1000 Q4days; Label tubing with date to be changed; Tubing that is not capped off is contaminated and must be changed., C hange Peripheral IV Line Dressing PRN; Change PRN For any leakage, soiled dressings, or unoclusiveness between routine IV site changes., Routine And sodium chloride 0.9 % flush 3 mLJump to med 3 mL, intravenous, 3 times daily, First dose on 11/19/19 at 0600 And sodium chloride 0.9 % primary fluid for IVPB 20 mLJump to med 20 mL, intravenous, at 20 mL/hr, Adminis ter over 1 Hours, As needed, as primary fluid with IVPB medication, Starting on 11/19/19 at 0112
To be used as primary fluid for IVPB administration if no maintenance fluid is ordered and I VPB medication is compatible. If incompatible, contact physician for alternate fluid order.
Group 3: acetaminophen (TYLENOL) tablet 650 mgJump to med 650 mg, oral, Every 4 hours PRN, mild pa in, Starting on Thu11/18/19 at 2206 Or acetaminophen (TYLENOL) suppository 650 mgJump to med 650 mg, rectal, Every 4 hours PRN, mild pain, Starting on Thu11/18/19 at 2206
Give if unable to take oral.
Group 4: Insert peripheral IV (CANCELED) Once, Thu11/18/19 at 2207, For 1 occurr ence
Assess Peripheral IV Site(s) Qshift; Assess site for evidence of phlebitis, infiltration, infection, or sepsis., Change Peripheral IV Catheter Site at 1000 Q4days; Change all IV catheters that are started outside the hospital or under questionable circumstances within 24 hours., Change Peripheral IV tubing at 1000 Q4days; Label tubing with date to be changed; Tubing that is not capped of f is contaminated and must be changed., Change Peripheral IV Line Dressing PRN; Change PRN For any leakage, soiled dressings, or unoclusiveness between routine IV site changes., STAT And Maintain IV access (CANCELED) Until discontinued, Starting Thu 9 at 2207, Until Specified
Routine And Saline lock IV(PRN Adapter) (CANCELED) Once, Thu11/18/19 at 2207, For 1 occurr ence
Assess Peripheral IV Site(s) Qshift; Assess site for evidence of phlebitis, infiltration, infection, or sepsis. Change Peripheral IV Catheter Site a t 1000 Q4days; Change all IV catheters t hat are started outside the hospital or under questionable circumstances within 24 hours. Change Peripheral IV tubing at 1000 Q4days; Label tubing with date to be changed; Tubing that is not capped off is contaminated and must be changed. Change Peripheral IV Line Dressing PRN; Change PRN For any leakage, soiled dressings, or unoclusiveness between routine IV si te changes., Assess Peripheral IV Site(s ) Qshift; Assess site for evidence of phlebitis, infiltration, infection, or sepsis., Change Peripheral IV Catheter Site at 1000 Q4days; Change all IV catheters t hat are started outside the hospital or under questionable circumstances within 24 hours., Change Peripheral IV tubing at 1000 Q4days; Label tubing with date to be changed; Tubing that is not capped off is contaminated and must be changed., C hange Peripheral IV Line Dressing PRN; Change PRN For any leakage, soiled dressings, or unoclusiveness between routine IV site changes., Routine And sodium chloride 0.9 % flush 3 mL (CANCELED) 3 mL, intravenous, 3 times daily, First dose on Thu11/18/19 at 2215 And sodium chloride 0.9 % primary fluid for IVPB 20 mLJump to med 20 mL, intravenous, at 20 mL/hr, Adminis ter over 1 Hours, As needed, as primary fluid with IVPB medication, Starting on Thu11/18/19 at 2206
To be used as primary fluid for IVPB administration if no maintenance fluid is ordered and I VPB medication is compatible. If incompatible, contact physician for alternate fluid order.
documented in this encounter Care Teams Automatic Buffer Relationship Specialty Start Date End Date Sapphire Montez MD PCP - General Internal Medicine 08/06/18 documented as of this encounter
--- OUTSIDE RECORDS SUMMARY | 2022-07-17 08:04 | XMS_ITS | Encounter Summary ---
:1960 Author Organization [facility] Address [address] [place] [address] Care Team Providers Name Role Phone Sapphire Montez MD Primary Care Provider [phone] Reason for Referral (Routine) - Closed Specialty Diagnoses / Procedures Referred By Contact Refer red To Contact Diagnoses Postmenopausal Sapphire Montez MD Procedures Dexa Axial Bone Density Dexa Axial Bone Density CHG DEXA,BONE DENSITY, 1 + SITE, AXIAL SKELETON CHG DEXA,BONE DENSITY, 1 + SITE, AXIAL SKELETON [address] [place] [address] Referral ID Status Reason Start Date Expiration Date Visits Requ ested Visits Authorized [id number] Closed 12/06/2019 06/03/2020 1 1 Reason for Visit (Routine) - Closed Specialty Diagnoses / Procedures Referred By Contact Refer red To Contact Diagnoses Postmenopausal Sapphire Montez MD Procedures Dexa Axial Bone Density Dexa Axial Bone Density CHG DEXA,BONE DENSITY, 1 + SITE, AXIAL SKELETON CHG DEXA,BONE DENSITY, 1 + SITE, AXIAL SKELETON [address] [place] [address] Referral ID Status Reason Start Date Expiration Date Visits Requ ested Visits Authorized [id number] Closed 12/06/2019 06/03/2020 1 1 Encounter Details Date Type Department Care Team Description 12/15/2019 Hospital Encounter [facility] Sapphire Montez Postmenopausal Women MD Ethel [address], [address] [place] [address] [facility] [address] [id number] [place], [place] [phone] (Wo rk) Social History Tobacco Use Types [...] by mouth 1 (one) time each day. ibuprofen (ADVIL) 200 mg Take [...] each day. documented as of this encounter Plan of Treatment Not on filedocumented as of this encounter Procedures Procedure Name Priority Date/Time Associated Diagnosis Comme nts DEXA AXIAL BONE Routine 12/15/2019 3:55 PM Postmenopausal Resu lts for this DENSITY EST procedure are i n the results section. documented in this encounter Results Dexa Axial Bone Density (12/15/2019 3:55 PM EST) Anatomical Region Laterality Modality Wrist, Hip, L-spine Other Specimen (Source) Anatomical Collection Method Collection Time Re ceived Time Location / / Volume Laterality 12/15/2019 4:33 PM EST Impressions 12/15/2019 4:56 PM EST Based on the enclosed analysis, the patient's BMD measurements indicate: Osteopenia. The Z-score values indicate essentially normal bone density for age matched controls. ??However, the T-score values d emonstrate osteopenia (low bone density) . ??Therefore, our recommendations would include a repeat DEXA scan within 2 years. Site(s) involved with this category: ??Spine, Right proximal femur, Right total hip Baseline exam. As recommended by the Int ernational Society for Clinical Densitometry (www.iscd.org) , comparison of studies for statistically significant change in BMD can only be rendered when the resp ective scans are performed on the same m achine at the same facility. Comments: Exercise and maintenance of adequate laila cium and vitamin D intake is recommended in all patients. ??Of course, your medical evaluation should include assessment for any metabolic issues or medications w hich might be contributing to your patie nt's bone health. In untreated postmenopausal females and elderly men there is a strong association between low BMD and the risk of osteoporotic fractures; risk increases progressively as bone density decreases. ??Fractu re risk may be further increased by nitza tional factors such as previous fracture as an adult, previous fragility fracture in a first degree relative, current smoking, body weight less than 57kg., or use of oral corticosteroid therapy. ??The N ional Osteoporosis Foundation (NOF) recommendations for pharmacologic therapy to reduce fracture risk in postmenopausal females or men age 50 and older include those with BMD T-scores of -2.5 or less after evaluation to exclude secondary causes, as well as in those with a spine or femoral neck T-score between -1.0 and -2.5 with elevated fracture risk per FRAX analysis. ??Complete updated recommendat ions are available at www.nof.org. Dictated: Natalie Clemons On: 12/15/2019 4:33 PM Electronically signed by: Natalie Clemons On: 12/15/2019 4:56 PM Transcribed: 12/15/2019 4:39 PM Daisy Pratt Narrative 12/15/2019 4:56 PM EST INDICATION: Post menopausal. Enclosed you will find a detailed bone m ineral analysis as well as a brief outline of definitions and recommendations for therapy as recommended by the National Osteoporosis Foundation (NOF). Procedure Note Natalie Clemons MD - 12/15/2019Formatting o f this note might be different from the original. INDICATION: Post menopausal. Enclosed you will find a detailed bone m ineral analysis as well as a brief outline of definitions and recommendations for therapy as recommended by the National Osteoporosis Foundation (NOF). IMPRESSION: Based on the enclosed analysis, the yuli ent's BMD measurements indicate: Osteopenia. The Z-score values indicate essentially normal bone density for age matched controls. However, the T-score values demonstrate osteopenia (low bone density). Therefore , our recommendations would include a repeat DEXA scan within 2 years. Site(s) involved with this category: Spine, Right proximal femur, Right total hip Baseline exam. As recommended by the Int ernational Society for Clinical Densitometry (www.iscd.org) , comparison of studies for statistically significant change in BMD can only be rendered when the respective scans are performed on the same machine at the same facility. Comments: Exercise and maintenance of adequate laila cium and vitamin D intake is recommended in all patients. Of course, your medical evaluation should include assessment for any metabolic issues or medications which might be contributing to your patient's bone heal th. In untreated postmenopausal females and elderly men there is a strong association between low BMD and the risk of osteoporotic fractures; risk increases progressively as bone density decreases. Fracture risk may be further increased by additional factors such as previous fracture as an adult, previous fragility fracture in a first degree relative, current smoking, body weight less than 57kg., or use of oral corticosteroid therapy. The National Osteoporosis Found [facility] (NOF) recommendations for pharmacologic therapy to reduce fracture risk in postmenopausal females or men age 50 and older include those with BMD T-scores of -2.5 or less after evaluation to exclude secondary causes, as well as in those with a spine or femoral neck T-score between -1.0 and -2.5 with elevated fracture risk per FRAX analysis. Complete updated recommendations are available at www.nof.org. Dictated: Natalie Clemons On: 12/15/2019 4:33 PM Electronically signed by: Natalie Clemons On: 12/15/2019 4:56 PM Transcribed: 12/15/2019 4:39 PM Daisy Pratt Sapphire Montez MD IMG DXA PROCEDURES documented in this encounter Visit Diagnoses Diagnosis Postmenopausal Asymptomatic postmenopausal status (age- related) (natural) documented in this encounter Care Teams Manager Registration Relationship Specialty Start Date End Date Sapphire Montez MD PCP - General Internal Medicine 08/06/18 documented as of this encounter
--- OUTSIDE RECORDS SUMMARY | 2022-07-17 08:04 | XMS_ITS | Encounter Summary ---
:1960 Author Organization [facility] Address [address] [place] [address] Care Team Providers Name Role Phone Sapphire Montez MD Primary Care Provider Reason for Referral (Routine) - Closed Specialty Diagnoses / Procedures Referred By Contact Refer red To Contact Diagnoses Encounter for screening mammogram for malignant neoplasm of breast System, Provider Not In Procedures Mammogram Breast Screening Tomosynthesis Bilateral Mammogram Breast Screening Tomosynthesis Bilateral CHG SCREENING MAMMOGRAPHY [place] [address] Referral ID Status Reason Start Date Expiration Date Visits Requ ested Visits Authorized [id number] Closed 08/20/2020 02/16/2021 1 1 Reason for Visit (Routine) - Closed Specialty Diagnoses / Procedures Referred By Contact Refer red To Contact Diagnoses Encounter for screening mammogram for malignant neoplasm of breast System, Provider Not In Procedures Mammogram Breast Screening Tomosynthesis Bilateral Mammogram Breast Screening Tomosynthesis Bilateral CHG SCREENING MAMMOGRAPHY [place] [address] Referral ID Status Reason Start Date Expiration Date Visits Requ ested Visits Authorized [id number] Closed 08/20/2020 02/16/2021 1 1 Encounter Details Date Type Department Care Team Description 08/21/2020 Hospital Encounter [facility] for screening Women mammogram for malignant [address], [facility] [address] [place] [address] Social History Tobacco Use Types [...] - Inhaled Oxygen Concentration - - Weight 50.8 kg (112 lb) 08/21/2020 2:54 PM EDT Height 157.5 cm (5' 2) 08/21/2020 2:54 PM EDT Body Mass Index 20.49 08/21/2020 2:54 PM EDT documented in this encounter Medications at Time of Discharge Medication Sig Dispensed Refills Start Date End Date coenzyme Q-10 100 mg Take 100 mg by mouth 0 capsule 1 (one) time each day. dilTIAZem (TIAZAC) [...] Associated Comments Diagnosis MAMMO BREAST SCREENING Routine 08/21/2020 2:53 PM Encounter fo r Results for this TOMOSYNTHESIS EDT screening mammogram procedu re are in [place] for malignant the results neoplasm of breast section. documented in this encounter Results Mammogram Breast Screening Tomosynthesis Bilateral (08/21/2020 2:53 PM EDT) Anatomical Region Laterality Modality Breast Bilateral Mammography Specimen (Source) Anatomical Location Collection Method / Collectio n Time Received Time / Laterality Volume Impressions 08/22/2020 8:51 AM EDT No mammographic evidence of malignancy. The patient will be notified of the resu lts. Screening Mammogram in 1 Year is recomme nded for both breasts. Overall BI-RADS category: 2 - Benign Marketing Communications Manager: Sheeba Casiano Electronically signed by: James Pederson MD On: 08/22/20 8:51 AM Narrative 08/22/2020 8:51 AM EDT Mammogram Breast Screening Tomosynthesis Bilateral obtained on 08/21/20. INDICATION: Visit for Screening Mammogra m COMPARED TO: 06/08/2019 Mammogram Breast Screening To [facility] Bilateral at [facility] [...] for developing b reast cancer is Tyrer-Cuzick: 2.16 % and the patient's lifetime risk is Tyr er-Cuzick: 5.68 %. The [place] [employer] considers women with 20% lifetime [...] This procedure was performed using tomosynthesis. ?? Benign scattered calcifications in both breasts. There are no suspicious masses, calcific ations, or other abnormal findings. Provider Not In System IMG BI PROCEDURES documented in this encounter Visit Diagnoses Diagnosis Encounter for screening mammogram for ma lignant neoplasm of breast documented in this encounter Care Teams Agricultural Commodities Grader Relationship Specialty Start Date End Date Sapphire Montez MD PCP - General Internal Medicine 08/06/18 documented as of this encounter
--- OUTSIDE RECORDS SUMMARY | 2022-07-17 08:04 | XMS_ITS | Encounter Summary ---
:1960 Author Organization [facility] Address [address] [place] [address] Care Team Providers Name Role Phone Sapphire Montez MD Primary Care Provider [phone] Encounter Details Date Type Department Care Team Description 08/23/2020 Travel Social History Tobacco Use Types Packs/Day [...] on filedocumented in this encounter Care Teams Automotive Service Technician Relationship Specialty Start Date End Date Sapphire Montez MD PCP - General Internal Medicine 08/06/18 documented as of this encounter
--- OUTSIDE RECORDS SUMMARY | 2022-07-17 08:04 | XMS_ITS | Encounter Summary ---
:1960 Author Organization [facility] Address [address] [facility] [place] [address] Care Team Providers Name Role Phone Sapphire Montez MD Primary Care Provider [phone] Reason for Visit Auth/Cert Specialty Diagnoses / Procedures Referred By Contact Refer red To Contact Procedures ARTHROSCOPY KNEE, partial medial MENISCECTOMY Referral ID Status Reason Start Date Expiration Date Visits Requ ested Visits Authorized [id number] 1 1 Encounter Details Date Type Department Care Team Description 08/24/2020 Anesthesia Event [facility] Lynn Frank MD [address] [place] [address] Surgery Center Dewayne Mackenzie MD [address] [facility] [place] [address] [id number] [facility] [place] [id number] Anesthesia Record Procedure Summary Procedure Name Responsible Anesthesia Start Anesthesia Stop Anesthesiologist Time Time ARTHROSCOPY KNEE, Lynn Frank MD 08/24/20 0737 08/24/20 0847 partial medial MENISECTOMY (Left: Knee) Events Date Time Event Comment 08/24/2020 0710 0737 In Room 0737 An Start 0737 An Start Data 0742 An Induction The patient was reevaluated immediately before moderate or deep sedation use and before anesthesia induction. 0742 An LMA 0752 An Tourn Inflated 350mmHg 0755 Proc Start 0832 An Tourn Deflated 0833 Airway Removed 0839 Proc Fin 0840 an stop data 0840 Out of Room 0844 Handoff to RN I completed my h andoff to the receiving nurse during which we: 1. Identified the patient 2. Identified the r esponsible provider 3. Reviewed the pertinent medica l history 4. Discussed the surgical course 5. Review ed intra-op anesthesia management and issues durin g anesthesia 6. Set expectations for post-procedu re period 7. Allowed opportunity for questions an d acknowledgement of understanding. 8. All dispensed medications have been reconciled. 0847 An Stop Name Total lidocaine PF (XYLOCAINE-MPF) injection 2% 140 mg propofol (DIPRIVAN) 10 mg/mL 200 mg dexamethasone (DECADRON) 4 mg/mL 4 mg ondansetron (ZOFRAN) 2 mg/mL 4 mg scopolamine (TRANSDERM-SCOP) 1 mg/3 days patch 1 patch acetaminophen (TYLENOL) tablet 1,000 mg dexmedetomidine (PRECEDEX) injection 80 mcg/20 mL (pre mix) 12 mcg ceFAZolin (Ancef) 2 g in sodium chloride 0.9 percent 1 00 mL IVPB 2 g lactated Ringer's infusion 300 mL Agents Name O2 (AUX) O2 N2O Air Sevoflurane Blood No blood administrations on file. Lines, Drains, and Airways Type Details Placement Removal Incision 11/14/19; 1200; Hip; 11/14/19 1200 by Left; teds in place. Corinne Lino Farrar RN Incision 08/24/20; 0755; N; Closed 08/24/20 0755 by Incision; Knee; Anterior, Delfina P Melchior, Left (2 incision sites) RN Peripheral IV Placement Date: 08/24/20; 08/24/20 0701 by 08/24 1006 by Placement Time: 0701; TINA Robbins RN Catheter Size: 20 G; Orientation: Right; Location: Antecubital; Site Prep: Chlorhexidine (ChloraPrep); Technique: Anatomical landmarks; Inserted by: TINA Maya; Insertion Attempts: 1; Patient Tolerance: Tolerated well; Removal Date: 08/24/20; Removal Time: 1006; Removal Reason: Discharged Laryngeal Mask Airway Placement Date: 08/24/20; 08/24/20 0742 by 08/24/20 0840 by Placement Time: 741 Melo Graham, Melo Graham, (created via procedure LIGHTING DIRECTOR LIGHTING DIRECTOR documentation); Brand: Unique; Size: 3; Removal Date: 08/24/20; Removal Time: 839 documented in this encounter Social History Tobacco [...] / COVID-19? documented as of this encounter OR Notes Anesthesia Postprocedure Evaluation - Lynn Frank MD - 08/24/2020 9:43 AM EDT Patient: Mago Branham Procedure Summary Date: 08/24/20 Room / Location: [facility]PERATING ROOM Anesthesia Start: 736 Anesthesia Stop: 846 Procedure: ARTHROSCOPY KNEE, partial medial MENISECTOMY (Left Knee) Diagnosis: Surgeons: Sincere Mayfield MD Responsible Provider: Lynn Frank MD Anesthesia Type: general ASA Status: 2 Anesthesia Type: general Last vitals Vitals Value Taken Time BP 142/67 08/24/20 0916 Pulse 47 08/24/2017 Resp 14 08/24/20916 SpO2 97 % 08/24/20916 Vitals shown include unvalidated device data. Vitals Value Taken Time Temp 97.2 ??F (36.2 ??C) 08/24/20 0910 Anesthesia Evaluation Patient location during evaluation: PACU Patient participation: complete - patient participated Level of consciousness: awake Pain management: satisfactory to patient Airway patency: patent Cardiovascular status: hemodynamically stable and acceptable Respiratory status: acceptable Hydration status: euvolemic PONV: no No complications documented. [employer] Qualified Clinical Data Registry PONV Adult Risk Protocol (Adult and Pediatric) General inhalation anesthetic (NOT TIVA) with PONV risk factors: Yes Provision of anti-emetic therapy with at least 2 different classes of agents: Yes Patient DID NOT receive anti-emetic therapy and reason is documented in Medical Record: No Multimodal Pain Management Use of multimodal pain management, two or more drugs and/or interventions, NOT including systemic opioids: Yes Exception: Documented allergy to multiple classes of analgesics: No Anesthesiology Smoking Abstinence Patient is a current smoker (e.g. cigarette, cigar, pipe, e-cigarette, or marijuana: No Preoperative Beta-Cale in Patients with Isolated CABG Surgery Patient undergoing Isolated CABG: No Exception: Documentation of medical reason(s) for not administering beta cale within 24 hours prior to surgical incision (e.g., not indicated, contraindicated, other medical reason): No PACU Assessment of Acute Postoperative Pain Prior to Anesthesia Care End (Applies to Patients Age >/-18) Initial PACU pain score: satisfactory to patient Patient unable to report pain score: N/A Unplanned Admission to ICU Related to Anesthesia Service up through End of PACU Care Unplanned admission to ICU (not initially anticipated at anesthesia start time): No Anesthesia Procedure Notes - Melo Graham CRNA - 08/24/2020 7:49 AM EDT Associated Order(s): Airway Airway Date/Time: 08/24/2020 7:42 AM Urgency: elective Airway not difficult Communicable infection precautions: I performed this patient's endotracheal intubation which required substantially increased work beyond that of the typical emergency endotracheal intubation based on the need to use COVID-19 precautions, which required increased time and skill employed through use of personal protective equipment in preparing for and during the intubation, as well as the additional time spent properly disposing of the equipment upon completion of the procedure. General Information and Staff Patient location during procedure: OR Authorizing Provider: Lynn Frank MD Performing Provider: Melo Graham CRNA Performed: VIVI Referring physician for procedure: Kin Graysonanesthetic checklist: Risks and benefits discussed, anesthesia consent given, patient identified, pre- op evaluation, monitors and equipment checked, IV checked, site marked, timeout performed Indications and Patient Condition Indications for airway management: anesthesia Rapid Sequence Induction: noSpontaneous Ventilation: absent Sedation level: deep Preoxygenated: yes Patient position: sniffing MILS maintained throughout Mask difficulty assessment: easy mask Final Airway Details Final airway type: laryngeal mask airway LMA Size: 3 Number of attempts at approach: 1 Number of other approaches attempted: 0 : no injury to tooth, no injury to lip and no airway complications. Anesthesia Preprocedure Evaluation - Lynn Frank MD - 08/21/2020 3:15 PM EDT Pre-op and post-op orders placed Relevant Problems NPO status confirmed by me. No active GERD No family history of MH No prior anesthetic problems Patient denies chest pain, PICKERING, SOB or significant changes in their baseline health status. 08/11/20 TTE LVEF 60% normal valves and function. Cardiology note from 03/2020 reviewed - patient has coronary vasospasm and takes Diltiazem and ranexa for chest pain; at last visit, diltiazem dose was reduced. Spoke to patient via phone on 08/22/20 -reduced dose of diltiazem did improve patient's symptoms of lightheadness and blurry vision; she denies any exertional angina and is doing well. -R Zac. Past Medical History: Diagnosis Date ??? Angina pectoris (CMS/HCC) ??? Anxiety ??? Coronary artery disease coronary [...] Removal ??? FEMUR FRACTURE SURGERY Left 10/2019 Visit Vitals BP (!) 149/86 Pulse 62 Temp 97.4 ??F (36.3 ??C) (Temporal) Resp (!) 12 Ht 5' 2 (1.575 m) Wt 112 lb (50.8 kg) SpO2 99% BMI 20.49 kg/m?? OB Status Postmenopausal Smoking Status Former Smoker BSA 1.49 m?? Lab Results Component Value Date WBC 5.14 11/18/2019 HGB 13.0 11/18/2019 HCT 39 11/18/2019 MCV 94 11/18/2019 PLT 201 11/18/2019 Lab Results Component Value Date GLUCOSE 98 11/19/2019 CALCIUM 8.6 11/19/2019 NA 138 11/19/2019 K 4.0 11/19/2019 CO2 25 11/19/2019 CL 106 11/19/2019 BUN 5 (L) 11/19/2019 CREATININE 0.7 11/19/2019 EGFR >60 11/19/2019 ANIONGAP 7 11/19/2019 COVID-19 Lab results 08/21/2020: SARS-CoV-2 RNA NEGATIVE EKG: No results found for this or any previous visit (from the past 4464 hour(s)). LENNY 08/06/2018: There is normal left ventricular wall thickness. [...] normal size. There is no pericardial effusion. Physical Exam Airway Mallampati: II TM distance: >3 FB Neck ROM: normal Mouth Opening: normal Cardiovascular - normal exam Dental - normal exam Pulmonary - normal exam Anesthesia Plan ASA 2 general (GA, LMA) intravenous induction Patient is not a smoker. I have explained the proposed anesthesia plan to the patient, answered the patient's questions, and to the best of my knowledge, I believe the patient has been adequately informed and has consented. Plan discussed with LIGHTING DIRECTOR. documented in this encounter Plan of Treatment Not on filedocumented as of this encounter Procedures Procedure Name Priority Date/Time Associated Diagnosis Comme nts RI AN LARYNGEAL Routine 08/24/2020 7:49 AM Result s for this MASK AIRWAY EDT procedure are i n the results section. documented in this encounter Results RI AN LARYNGEAL MASK AIRWAY (08/24/2020 7:49 AM EDT) Narrative Melo Graham CRNA - 08/24/2020 7:4 9 AM EDT Melo Graham CRNA ? 08/24/2020 ??7:51 AM Airway Date/Time: 08/24/2020 7:42 AM Urgency: elective Airway not difficult Communicable infection precautions: ??I performed this patient's endotracheal intubation which required s ubstantially increased work beyond that of the typical emergency endotrache al intubation based on the need to use COVID-19 precautions, which required increased time and skill employed through use of personal protective equip ment in preparing for and during the intubation, as well as the additiona l time spent properly disposing of the equipment upon completion of the pro cedure. General Information and Staff Patient location during procedure: OR Authorizing Provider: Lynn Frank MD Performing Provider: Amauri Bonilla Performed: VIVI Referring physician for procedure: DONALD Graysonreanesthetic checklist: Risks and benefits discussed, anesthesia consent given, patient identified, pre-op evaluation, monitors and equipment checked, IV checked, site marked, timeout performed Indications and Patient Condition Indications for airway management: anest hesia Rapid Sequence Induction: noSpontaneous Ventilation: absent Sedation level: deep Preoxygenated: yes Patient position: sniffing MILS maintained throughout Mask difficulty assessment: easy mask Final Airway Details Final airway type: laryngeal mask airway LMA Size: 3 Number of attempts at approach: 1 Number of other approaches attempted: 0 ?? : no injury to tooth, no injury to lip a nd no airway complications. Lynn Frank MD ANESTHESIA ORDERABLES documented in this encounter Visit Diagnoses Not on filedocumented in this encounter Administered Medications Inactive Administered Medications - up to 3 most recent administrations Medication Order MAR Action Action Date Dose Rate Site acetaminophen (Tylenol) tablet Given 08/24/2020 7:10 AM EDT 1,000 mg As needed, Starting on Thu08/24/20 at 0710, Anesthesia Intra-op ceFAZolin (Ancef) 2 g in sodium chloride 0.9 New Bag 0 7:37 AM EDT 2 g percent 100 mL IVPB 2 g, intravenous, at 200 mL/hr, Administer over 30 Minutes, Once, On Thu08/24/20 at 0700, For 1 dose, Pre-op, Start within 60 minutes of incision., Reason for therapy: Surgical Prophylaxis dexamethasone (Decadron) injection Given 08/24/2020 8:40 AM EDT 4 mg intravenous, As needed, Starting on Thu08/24/20 at 0840, Anesthesia Intra-op dexmedetomidine HCl (Precedex) 80 mcg/20 mL Given 08/24/2020 7:38 AM EDT 12 mcg (4 mcg/mL) injection solution As needed, Starting on Thu08/24/20 at 0738, Anesthesia Intra-op lactated Ringer's infusion Continued from Pre 08/24/2020 7:37 AM EDT 100 mL/hr, intravenous, Continuous, Starting on Thu08/24/20 at 0700, Pre-op New Bag 08/24/2020 7:10 AM EDT 100 mL/hr 100 mL/hr lidocaine PF (Xylocaine) 20 mg/mL (2 %) Given 08/24/2020 7:55 AM EDT 40 mg injection intravenous, As needed, Starting on Thu08/24/20 at 0742, Anesthesia Intra-op Given 08/24/2020 7:42 AM EDT 100 mg ondansetron (Zofran) injection Given 08/24/2020 8:40 AM EDT 4 mg intravenous, As needed, Starting on Thu08/24/20 at 0840, Anesthesia Intra-op propofol (Diprivan) injection Given 08/24/2020 7:42 AM EDT 200 mg intravenous, As needed, Starting on Thu08/24/20 at 0742, Anesthesia Intra-op scopolamine (Transderm-Scop) patch Given 08/24/2020 7:10 AM EDT 1 patch Administer over 72 Hours, As needed, Starting on Thu08/24/20 at 0710, Anesthesia Intra-op documented in this encounter Care Teams Solution Design And Analysis Manager Relationship Specialty Start Date End Date Sapphire Montez MD PCP - General Internal Medicine 08/06/18 documented as of this encounter
--- OUTSIDE RECORDS SUMMARY | 2022-07-17 08:04 | XMS_ITS | Encounter Summary ---
:1960 Author Organization [facility] Address [address] [place] [address] Care Team Providers Name Role Phone Sapphire Montez MD Primary Care Provider [phone] Reason for Visit Reason Onset Date Comments Covid-19 Testing 08/21/2020 Encounter Details Date Type Department Care Team Description 08/21/2020 Clinical Support [facility] Screenin g for viral disease (Primary Dx); [facility] Draws - Speci al screening examination for viral disease [address] [place] [id number] Social History Tobacco Use Types Packs/Day Years [...] / COVID-19? documented as of this encounter Patient Instructions Patient InstructionsVivian Roper MA - 08/21/2020 10:00 AM EDT Preventing Coronavirus (COVID-19) Your healthcare provider has determined that you do not need to be hospitalized at this time and canbe isolated at home while awaiting your results. You should follow the steps below to prevent the potential spread to others. Someone from [facility] will contact you with your test results. In addition, you can find your results in your [employer] portal. Stay home except to get medical care As recommended by the Centers for Disease Control (CDC), you should restrict activities outside of your home, except for getting medical care. Do not go to work, school, or public areas. Avoid using public transportation, ridesharing, or taxis. Separate yourself from other people and animals in your home People: As much as possible, you should stay in a specific room away from other people in your home.You should use a separate bathroom, if available. Animals: Although there have not been reports of pets or other animals becoming sick with COVID-19, you should restrict contact with pets and other animals while you are sick. This includes petting, snuggling, being kissed or licked, and sharing food. Clean your hands often Wash your hands often with soap and water for at least 20 seconds (hum the Happy Birthday song from beginning to end twice), especially after blowing your nose, coughing, or sneezing; going to the bathroom; and before eating or preparing food. If soap and water are not readily available Call ahead before visiting your doctor If you have a medical appointment, call the healthcare provider and tell them that you may have COVID-19. This will help the healthcare provider's office take steps to keep other people from getting infected or exposed. Wear a facemask If you have one, you should wear a facemask when you are around other people (e.g. sharing a room orvehicle) or pets and before you enter a healthcare provider's office. If you are not able to wear a facemask (for example, because it causes trouble breathing), then people who live with you should notstay in the same room with you, or they should wear a facemask if they enter your room. Cover your coughs and sneezes Cover your mouth and nose with tissue when you cough or sneeze. Throw used tissues in a lined trash can. Immediately wash your hands with soap and water for at least 20 seconds or use an alcohol-based hand label machine operator with at least 60% alcohol, covering all surfaces of your hands and rubbing them together until they feel dry. Avoid sharing personal household items Do not share dishes, drinking glasses, cups, eating utensils, towels, or bedding with other people or pets in your home. After using these items, they should be washed thoroughly with soap and water. Clean all high-touch surfaces everyday High touch surfaces include counters, tabletops, doorknobs, bathroom fixtures, toilets, phones, keyboards, tablets, and bedside tables. Also clean any surfaces that may have blood, stool, or body fluids on them. Use a household cleaning spray or wipe, according to the label instructions. Labels contain instructions for safe and effective use of the cleaning product including precautions you should take when applying the product, such as wearing gloves and making sure you have good ventilation duringuse of the product. Monitor your symptoms Seek prompt medical attention if your illness is worsening (e.g. difficulty breathing). Before seeking care, call your healthcare provider and tell them that you have, or are being evaluated for, COVID-19. Put a facemask on before you enter the facility. These steps will help the healthcare provider'soffice to keep other people in the office or waiting room from getting infected or exposed. If you have a medical emergency and need to call 911, notify the dispatch personnel that you have, or are being evaluated for COVID-19. If possible, put on a facemask before emergency medical services arrive. Discontinuing home isolation If you have tested positive for COVID-19, you should remain under home isolation precautions until at least 14 days have passed since symptoms first started and at least 3 days have passed since recovery. Recovery is defined as having no fever without the use of fever-reducing medications and improvement in respiratory symptoms (e.g. cough, shortness of breath) Resources http://www.[place].gov/coronavirus/ https://www.coronavirus.gov/ [facility] Nurse Line - (7 days a week, 6a-midnight) documented in this encounter Plan of Treatment Not on filedocumented as of this encounter Procedures Procedure Name Priority Date/Time Associated Diagnosis Comme nts COVID-19 RT-PCR, Routine 08/21/2020 9:56 AM Special screening Results for this QUAL (LAB USE ONLY) EDT examination for proce ramone are in viral disease the results section. documented in this encounter Results COVID-19 RT-PCR, Qual Screening (08/21/2020 9:56 AM EDT) [facility] Method Time Signature SARS-CoV-2 NEGATIVE NEGATIVE 08/22/2020 [facility] RNA 9:28 PM EDT LABORATORIES Comment: CASE: [id number] PATIENT: ALEX THOMAS COVID-19: Not Detected COVID-19 [...] may be indicated. Performance characteristics of the [facility] COVID-19 Combo, Real-time PCR Diagnostics test have been determined by [facility] and the test has been approved by the FDA for Emergency U se Authorization. ??[facility] is regulated under CLIA as qu alified to perform high-complexity testing. Specimen Anatomical Location / Collection Method Collection Tony e Received Time (Source) Laterality / Volume Swab Nasopharyngeal Non-blood 08/21/2020 9:56 08/21/2020 structure / Unknown Collection / AM EDT 12:24 PM EDT Unknown [facility] LAB MICROBIOLOGY - GENERAL O RDERABLES Performing Organization Address City/State/ZIP Code Phon e Number [facility] [address] [place] [address] documented in this encounter Visit Diagnoses Diagnosis Screening for viral disease - Primary Special screening examination for unspec ified viral disease Special screening examination for viral disease Special screening examination for unspec ified viral disease documented in this encounter Care Teams Gold Leaf Printer Relationship Specialty Start Date End Date Sapphire Montez MD PCP - General Internal Medicine 08/06/18 documented as of this encounter
--- OUTSIDE RECORDS SUMMARY | 2022-07-17 08:04 | XMS_ITS | Encounter Summary ---
:1960 Author Organization [facility] Address [address] [place] [address] Care Team Providers Name Role Phone Sapphire Montez MD Primary Care Provider [phone] Encounter Details Date Type Department Care Team Description 11/20/2019 Patient Outreach [facility] Madeline Leo, [address] [facility] [address] [place], [place] [address] [id number] [place], [place] [phone] Social History Tobacco Use Types Packs/Day Years [...] on filedocumented in this encounter Care Teams Element Burner Relationship Specialty Start Date End Date Sapphire Montez MD PCP - General Internal Medicine 08/06/18 documented as of this encounter
--- OUTSIDE RECORDS SUMMARY | 2022-07-17 08:04 | XMS_ITS | Encounter Summary ---
:1960 Author Organization [facility] Address [address] [facility] [place] [address] Care Team Providers Name Role Phone Sapphire Montez MD Primary Care Provider [phone] Reason for Visit Auth/Cert Specialty Diagnoses / Procedures Referred By Contact Refer red To Contact Diagnoses Strain of adductor muscle, fascia and tendon of unspecified thigh, subsequent encounter Procedures CLOSED REDUCTION PERCUTANEOUS PINNING LEFT HIP 7.3 SYNTHES JACOB SCREW ELINA FX TABLE Referral ID Status Reason Start Date Expiration Date Visits Requ ested Visits Authorized [id number] 1 1 Encounter Details Date Type Department Care Team Description 11/14/2019 Anesthesia Event [facility] OPERATING ROOM Ap Barger MD [address] [place] [address] 100[address] [facility] Nikolas Hines MD [address] [place] [address] [place] [address] Anesthesia Record Procedure Summary Procedure Name Responsible Anesthesia Start Anesthesia Stop Anesthesiologist Time Time CLOSED REDUCTION Ap Barger MD 11/14/19 1111 11/14/19 1 234 PERCUTANEOUS PINNING LEFT HIP (Left: Hip) Events Date Time Event Comment 11/14/2019 0952 1111 In Room 1111 An Start 1111 An Start Data 1119 Block Placed 1120 Anesthesia Ready for Incision 1149 Proc Start 1225 Proc Fin 1226 an stop data 1229 Out of Room 1234 Handoff to RN I completed my h andoff to the receiving nurse during [facility] we: 1. Identified the patient 2. I dentified the responsible prov ider 3. Reviewed the pertinent medica l history 4. Discussed the surgical cou rse 5. Reviewed intra-op anesthe natalia management and issues during an esthesia 6. Set expectations for post-procedure period 7. Allowed oppor tunity for questions and acknowledgem ent of understanding. 8. All dispensed medications have been reconciled. 1234 An Stop Name Total midazolam (VERSED) (mg) 2 mg bupivacaine 0.75%-dextrose 8.25% (SENSORCAINE) intrath ecal 1.6 mL lidocaine PF (XYLOCAINE-MPF) local injection 2% 40 mg propofol (DIPRIVAN) 10 mg/mL 233.63 mg ePHEDrine 25 mg phenylephrine 100 mcg/mL in NS 150 mcg ceFAZolin in dextrose 5 % (ANCEF) 2 g IVPB 100 mL 2 g lactated Ringer's infusion 600 mL Agents Name O2 (AUX) O2 N2O Air Blood No blood administrations on file. Lines, Drains, and Airways Type Details Placement Removal Incision 11/14/19; 1200; Hip; 11/14/19 1200 by Left; teds in place. Corinne Farrar RN Peripheral IV Placement Date: 11/14/19; 11/14/19 1015 by 11/14 1707 by Placement Time: 1015; TINA Patel, Change Due: 11/18/19; RN Catheter Size: 20 G; Orientation: Left; Location: Wrist; Site Prep: ChloraPrep; Local Anesth: None; Technique: Anatomical landmarks; Insertion Attempts: 1; Patient Tolerance: Tolerated well; Removal Date: 11/14/19; Removal Time: 1707 Peripheral IV Placement Date: 11/14/19; 11/14/19 1015 by Enedina lombardi 11/15/19 1330 by Placement Time: 1015; TINA Bell CNA Change Due: 11/18/19; Catheter Size: 20 G; Orientation: Left; Location: Wrist; Inserted by: IN SDS @1015; Removal Date: 11/15/19; Removal Time: 1330; Removal Reason: Discharged documented in this encounter Social History Tobacco [...] on file documented as of this encounter OR Notes Anesthesia Postprocedure Evaluation - Mago Steel MD - 11/14/2019 4:33 PM EST Patient: Mago Branham Procedure Summary Date: 11/14/19 Room / Location: [facility] OR [address] [place] [address] Operating Room Anesthesia Start: 1111 Anesthesia Stop: 1234 Procedure: CLOSED REDUCTION PERCUTANEOUS PINNING LEFT HIP (Left Hip) Diagnosis: Strain of adductor muscle, fascia and tendon of unspecified thigh, subsequent encounter (Strain of adductor muscle, fascia and tendon of unspecified thigh, subsequent encounter [S76.219D]) Surgeon: Sincere Mayfield MD Responsible Provider: Ap Barger MD Anesthesia Type: spinal ASA Status: 3 Anesthesia Type: spinal Last vitals Vitals Value Taken Time BP 138/80 11/14/2019 4:30 PM Pulse 58 11/14/2019 4:32 PM Resp 14 11/14/2019 2:28 PM SpO2 97 % 11/14/2019 4:32 PM Vitals shown include unvalidated device data. Vitals Value Taken Time Temp 98.6 ??F (37 ??C) 11/14/2019 4:10 PM Called to bedside to discuss prolonged spinal block with patient in PACU. The patient is able to wiggle her toes and slightly car pick up driver each of her legs. She does report that the spinal appears to be resolving. We discussed the need for the tesfaye catheter with the prolonged spinal block. Expect full resolution of spinal. No other concerning s/sx at this time. Anesthesia Post Evaluation [employer] Qualified Clinical Data Registry Anesthesia Postprocedure Evaluation - Ap Barger MD - 11/14/2019 1:01 PM EST Patient: Mago Branham Procedure Summary Date: 11/14/19 Room / Location: [facility] OR [address] [place] [address] Operating Room Anesthesia Start: 1111 Anesthesia Stop: 1234 Procedure: CLOSED REDUCTION PERCUTANEOUS PINNING LEFT HIP (Left Hip) Diagnosis: Strain of adductor muscle, fascia and tendon of unspecified thigh, subsequent encounter (Strain of adductor muscle, fascia and tendon of unspecified thigh, subsequent encounter [S76.219D]) Surgeon: Sincere Mayfield MD Responsible Provider: Ap Barger MD Anesthesia Type: spinal ASA Status: 3 Anesthesia Type: spinal Last vitals Vitals Value Taken Time BP 110/81 11/14/2019 1:00 PM Pulse 46 11/14/2019 1:01 PM Resp 13 11/14/2019 1:01 PM SpO2 100 % 11/14/2019 1:01 PM Vitals shown include unvalidated device data. Vitals Value Taken Time Temp 97.3 ??F (36.3 ??C) 11/14/2019 12:35 PM Anesthesia Evaluation Patient location during evaluation: PACU Patient participation: complete - patient participated Level of consciousness: awake Pain management: satisfactory to patient Airway patency: patent Cardiovascular status: hemodynamically stable and acceptable Respiratory status: acceptable Hydration status: euvolemic Anesthetic complications: no PONV: no [employer] Qualified Clinical Data Registry PONV Adult Risk Protocol (Adult and Pediatric): General inhalation anesthetic (NOT TIVA) with PONV risk factors: No Provision of anti-emetic therapy with at least 2 different classes of agents: No Patient DID NOT receive anti-emetic therapy and reason is documented in Medical Record: No Multimodal Pain Management: Patient undergoing Elective Surgery (I.e. Outpatient, or ASC, or Prescheduled Surgery prior to Hospital Admission): Yes Use of multimodal pain management, two or more drugs and/or interventions, NOT including systemic opioids: No Exception: Documented allergy to multiple classes of analgesics: No PACU Assessment of Acute Postoperative Pain Prior to Anesthesia Care End (Applies to Patients Age >/-18): Initial PACU pain score:< 7/10 Post-anesthetic transfer of care checklist/protocol to PACU/ICU: Transfer from OR to PACU or other non-ICU location upon case conclusion: Yes Transfer from OR to ICU upon case conclusion: No Use of transfer checklist/protocol: Yes Exclusion: Service performed in patient hospital room (and thus did not require transfer): No PACU Reintubation: General anesthesia with intubation and subsequent extubation in OR or PACU: No Required reintubation in the PACU: No Extubation was a planned trial documented in the medical record prior to removal of the original airway device: No Unplanned Admission to ICU Related to Anesthesia Service up through End of PACU Care: Unplanned admission to ICU (not initially anticipated at anesthesia start time): No Anesthesia Procedure Notes - Andrei Laureano CRNA - 11/14/2019 11:31 AM EST Associated Order(s): Spinal Block Spinal Block Staffing Performed by: MUSIC COORDINATOR Performing Provider: Andrei Laureano CRNA Authorizing Provider: Ap Barger MD Patient location during procedure: OR Start time: 11/14/2019 11:14 AM End time: 11/14/2019 11:19 AM Reason for block: primary anesthetic Preanesthetic Checklist Completed: patient identified, site marked, timeout performed, IV checked, risks and benefits discussed, monitors and equipment checked, anesthesia consent given and hand hygiene performed Spinal Block Patient position: sitting Prep: ChloraPrep Patient monitoring: blood pressure, continuous pulse oximetry and heart rate Approach: midline Location: L4-5 Procedures: landmark technique Needle Needle type: introducer and Pencan Needle gauge: 25 G Intra-op Complications: no Assessment Sensory level: T6 Positive test dose: no Failed block: no Dural puncture: yes Respiratory complications: no Vascular puncture: no Cardiac complications: no Abandoned block: no Neurologic complications: nononono Interventions needed: no Length of hospitalization increased: no Complications: No Anesthesia Preprocedure Evaluation - Ap Barger MD - 11/14/2019 9:51 AM EST Pre-op and post-op orders placed Relevant Problems Interpretation Summary There is normal left ventricular wall thickness. [...] normal size. There is no pericardial effusion. Past Medical History: Diagnosis Date ??? Angina pectoris (CMS/HCC) ??? Coronary artery disease coronary microvascular disease ??? Coronary vasospasm (CMS/HCC) right coronary artery ??? Fractures non displaced femoral neck fx left ??? Hyperlipidemia ??? Hypertension ??? Joint pain L hip ??? Pneumonia 10 yrs ago ??? Wears glasses reading Past Surgical History: Procedure Laterality Date ??? CARDIAC CATHETERIZATION ??? SECTION x 3 Lab Results Component Value Date WBC 6.46 11/11/2019 HGB 13.8 11/11/2019 HCT 44 11/11/2019 MCV 99 11/11/2019 PLT 244 11/11/2019 Lab Results Component Value Date GLUCOSE 90 11/11/2019 CALCIUM 9.7 11/11/2019 NA 139 11/11/2019 K 4.0 11/11/2019 CO2 28 11/11/2019 CL 102 11/11/2019 BUN 11 11/11/2019 CREATININE 0.8 11/11/2019 EKG: Encounter Date: 11/11/19 ECG 12 lead Result Value LA Interval 173 QRSD Interval 83 QT Interval 444 QTcB 451 QTcF 449 QRS Horizontal [place]oulder -24 QRS [place] 72 Impression Sinus rhythm normal P axis, V-rate 50-99 Probable left atrial enlargement P >50mS, <-0.10mV V1 Physical Exam Airway Mallampati: I TM distance: >3 FB Neck ROM: normal Mouth Opening: normal Cardiovascular - normal exam Rhythm: regular Rate: normal Dental Pulmonary - normal exam Breath sounds clear to auscultation Other findings: NPO status confirmed by me. No active GERD No family history of MH No prior anesthetic problems Patient denies chest pain, PICKERING, SOB or significant changes in their baseline health status. Anesthesia Plan ASA 3 spinal (Cath x3 no obst dz Microvascular angina controlled with nitrates Dr Bernard almonte, cleared for surgery) intravenous induction Proposed anesthetic plan explained and relevant risks reviewed with patient. Informed consent obtained. Patient agrees to proceed. Plan discussed with MUSIC COORDINATOR. Anesthesia Preprocedure Evaluation - Nikolas Hines MD - 11/11/2019 9:44 AM EST Pre-op and post-op orders placed Relevant Problems No past medical history on file. Past Surgical History: Procedure Laterality Date ??? CARDIAC CATHETERIZATION ??? SECTION Lab Results Component Value Date WBC 4.24 08/06/2018 HGB 14.2 08/06/2018 HCT 44 08/06/2018 MCV 94 08/06/2018 PLT 261 08/06/2018 Lab Results Component Value Date GLUCOSE 90 08/06/2018 CALCIUM 9.9 08/06/2018 NA 138 08/06/2018 K 4.3 08/06/2018 CO2 27 08/06/2018 CL 105 08/06/2018 BUN 13 08/06/2018 CREATININE 0.8 08/06/2018 EKG: No results found for this or any previous visit (from the past 4464 hour(s)). Physical Exam Anesthesia Plan documented in this encounter Miscellaneous Notes Addendum Note - aMgo Steel MD - 11/14/2019 4:34 PM EST Addendum created 11/14/19 2694 by Mago Steel MD Clinical Note Signed documented in this encounter Plan of Treatment Not on filedocumented as of this encounter Procedures Procedure Name Priority Date/Time Associated Comments Diagnosis ANESTHESIA SPINAL Routine 11/14/2019 11:31 AM Res ults for this BLOCK EST procedure are i n the results section. documented in this encounter Results Spinal Block (11/14/2019 11:31 AM EST) Andrei Lake CRNA - 11/14/2019 11:31 AM EST Andrei Laureano CRNA ? 11/14/2019 11:32 AM Spinal Block Staffing Performed by: VIVI Performing Provider: DAVID Alford Authorizing Provider: Ap Barger MD Patient location during procedure: OR Start time: 11/14/2019 11:14 AM End time: 11/14/2019 11:19 AM Reason for block: primary anesthetic Preanesthetic Checklist Completed: patient identified, site katja ed, timeout performed, IV checked, risks and benefits discussed, monitors a nd equipment checked, anesthesia consent given and hand hygiene performed Spinal Block Patient position: sitting Prep: ChloraPrep Patient monitoring: blood pressure, cont inuous pulse oximetry and heart rate Approach: midline Location: L4-5 Procedures: landmark technique Needle Needle type: introducer and Pencan Needle gauge: 25 G Intra-op Complications: no Assessment Sensory level: T6 Positive test dose: no Failed block: no Dural puncture: yes Respiratory complications: no Vascular puncture: no Cardiac complications: no Abandoned block: no Neurologic complications: nononono Interventions needed: no Length of hospitalization increased: no Complications: No Ap Barger MD ANESTHESIA ORDERABLES documented in this encounter Visit Diagnoses Not on filedocumented in this encounter Administered Medications Inactive Administered Medications - up to 3 most recent administrations Medication Order MAR Action Action Date Dose Rate Site kxbeeqshict-dqwazhnu-pokdl(PF) Given 11/14/2019 11:19 AM EST 1.6 mL (MARCAINE SPINAL) 0.75 % (7.5 mg/mL) injection As needed, Starting on Thu11/14/19 at 1119, Anesthesia Intra-op ceFAZolin in dextrose 5 % (ANCEF) 2 g IVPB 100 Given 1 01/15/2019 11:22 AM EST 2 g mL 2 g, intravenous, at 200 mL/hr, Administer over 0.5 Hours, Once, On Thu11/14/19 at 0945, For 1 dose, Pre-op, Administer within 1 hour of surgical incision. premix bag, Reason for therapy: Surgical Prophylaxis ePHEDrine injection Given 11/14/2019 12:09 PM EST 5 mg intravenous, As needed, Starting on Thu11/14/19 at 1152, Anesthesia Intra-op Given 11/14/2019 11:59 AM EST 10 mg Given 11/14/2019 11:52 AM EST 10 mg lactated Ringer's infusion Continued from Pre 11/14/2019 11:11 AM EST 75 mL/hr, intravenous, Continuous, Starting on Thu11/14/19 at 0945, IV Fluids to be administered only in pre-op holding or transportation planner to OR if the patient is in the ICU. New Bag 11/14/2019 10:30 AM EST 75 mL/hr 75 mL/hr lidocaine PF (XYLOCAINE) 20 mg/mL (2 %) Given 11/14/2019 11:21 A M EST 40 mg injection intravenous, As needed, Starting on Thu11/14/19 at 1121, Anesthesia Intra-op midazolam (PF) (VERSED) injection soluti on Given 11/14/2019 11:05 AM EST 2 mg intravenous, As needed, Starting on Thu11/14/19 at 1105, Anesthesia Intra-op phenylephrine 100 mcg/mL in NS Given 11/14/2019 12:09 PM EST 100 mcg intravenous, As needed, Starting on Thu11/14/19 at 1139, Anesthesia Intra-op Given 11/14/2019 11:39 AM EST 50 mcg propofol (DIPRIVAN) Rate/Dose Change 11/14/2019 12:06 25 mcg/kg/min 7 .88 mL/hr infusion 10 mg/mL PM EST intravenous, Continuous PRN, Starting on 11/14/19 at 1121, Anesthesia Intra-op Rate/Dose Change 11/14/2019 11:57 AM EST 50 mcg/kg/min 15.8 mL/hr New Bag 11/14/2019 11:21 AM EST 100 mcg/kg/min 31.5 mL/hr documented in this encounter Care Teams Export Freight Manager Relationship Specialty Start Date End Date Sapphire Montez MD PCP - General Internal Medicine 08/06/18 documented as of this encounter
--- OUTSIDE RECORDS SUMMARY | 2022-07-17 08:04 | XMS_ITS | Encounter Summary ---
:1960 Author Organization [facility] Address [address] [place] [address] Care Team Providers Name Role Phone Sapphire Mnotez MD Primary Care Provider [phone] Encounter Details Date Type Department Care Team Description 11/16/2019 Patient Outreach [facility] Madeline Leo, [address] [facility] [address] [place], [place] [address] [address] [place], [place] [phone] [address] Social History Tobacco Use Types Packs/Day [...] on filedocumented in this encounter Care Teams Toe Trimmer Relationship Specialty Start Date End Date Sapphire Montez MD PCP - General Internal Medicine 08/06/18 documented as of this encounter
--- OUTSIDE RECORDS SUMMARY | 2022-07-17 08:04 | XMS_ITS | Encounter Summary ---
:1960 Author Organization [facility] Address [address] [place] [address] Care Team Providers Name Role Phone Sapphire Montez MD Primary Care Provider [phone] Reason for Referral Imaging (Routine) - Closed Specialty Diagnoses / Procedures Referred By Contact Refer red To Contact Radiology Diagnoses Other tear of medial meniscus, current injury, left knee, initial encounter Sincere Mayfield MD Procedures MRI Knee Left wo IV Contrast CHG MRI LOWER EXTREM JT, W/O CONTRAST [address] [address] Referral ID Status Reason Start Date Expiration Date Visits Requ ested Visits Authorized [id number] Closed 08/03/2020 1 1 Reason for Visit Imaging (Routine) - Closed Specialty Diagnoses / Procedures Referred By Contact Refer red To Contact Radiology Diagnoses Other tear of medial meniscus, current injury, left knee, initial encounter Sincere Mayfield MD Procedures MRI Knee Left wo IV Contrast CHG MRI LOWER EXTREM JT, W/O CONTRAST [address] [address] Referral ID Status Reason Start Date Expiration Date Visits Requ ested Visits Authorized [id number] Closed 08/03/2020 1 1 Encounter Details Date Type Department Care Team Description 08/09/2020 Hospital Encounter [facility] [place], Sincere, Other tear of medial [place] ROE meniscus, current [address] [place] injury, left knee, [address] initial encounter [place] [address] [address] [place] [address] Social History Tobacco Use Types Packs/Day Years [...] mouth 0 tabletIndications: every night. 25-50mg nightly ibuprofen (ADVIL) 200 mg Take 200 mg [...] Name Priority Date/Time Associated Diagnosis Comme nts MR KNEE LEFT WO IV Routine 08/09/2020 6:26 AM Other tear of me dial Results for this CONTRAST EDT meniscus, current procedure are in injury, left knee, the resul ts initial encounter section. documented in this encounter Results MRI Knee Left wo IV Contrast (08/09/2020 6:26 AM EDT) Anatomical Region Laterality Modality Lower Extremities, Knee Left Magnetic Resonan ce Specimen (Source) Anatomical Collection Method Collection Time Re ceived Time Location / / Volume Laterality 08/09/2020 11:55 AM EDT Impressions 08/09/2020 12:23 PM EDT 1. Patellar tendinopathy. 2. Displaced horizontal tear of the body and posterior horn of the medial meniscus with a 2 mm parameniscal cyst adjacent to the posterior horn of the medial meniscus. There is a 5 x 5 mm parameniscal f ragment displaced into the inferomedial gutter with associated myxoid degeneration. Dictated: Enio Pool MD On: 08/09/2020 11:55 AM Electronically signed by: Enio Pool MD On: 08/09/2020 12:23 PM Transcribed: 08/09/2020 12:16 PM Norma Alexander Narrative 08/09/2020 12:23 PM EDT INDICATION: Left knee pain while running with swelling. 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 COMPARISON: None. TECHNIQUE: Multiplanar, multisequential MR images of the left knee are performed without intravenous contrast. FINDINGS: Small knee joint effusion. No popliteal cyst. Extensor mechanism is intact. There is thickening of the patellar tendon consistent with patellar tendinopathy. Anterior and posterior cruciate ligaments are intact. In the medial compartment, there is a di splaced horizontal tear of the body and posterior horn of the medial meniscus. There is a 15 mm parameniscal cyst adjacent to the posterior horn of the medial men iscus. There is a 5 x 5 mm meniscal frag ment displaced in the inferomedial gutter with associated myxoid degeneration. There is moderate extrusion of the medial meniscus. Medial collateral ligament is i ntact. Medial compartment articular cart ilage is preserved. In the lateral compartment, lateral meni scus, popliteus tendon and lateral collateral ligament are intact. Lateral compartment articular cartilage is preserved. In the patellofemoral compartment, mild cartilage thinning of the patellar apex. No trochlear cartilage defect. Procedure Note Enio Pool MD - 08/09/2020Formatt ing of this note might be different from the original. INDICATION: Left knee pain while running with swelling. 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 COMPARISON: None. TECHNIQUE: Multiplanar, multisequential MR images of the left knee are performed without intravenous contrast. FINDINGS: Small knee joint effusion. No popliteal cyst. Extensor mechanism is intact. There is thickening of the patellar tendon consistent with patellar tendinopathy. Anterior and posterior cruciate ligaments are intact. In the medial compartment, there is a di splaced horizontal tear of the body and posterior horn of the medial meniscus. There is a 15 mm parameniscal cyst adjacent to the posterior horn of the medial meniscus. There is a 5 x 5 mm meniscal fragment di splaced in the inferomedial gutter with associated myxoid degeneration. There is moderate extrusion of the medial meniscus. Medial collateral ligament is intact. Medial compartment articular cartilage is preserved. In the lateral compartment, lateral meni scus, popliteus tendon and lateral collateral ligament are intact. Lateral compartment articular cartilage is preserved. In the patellofemoral compartment, mild cartilage thinning of the patellar apex. No trochlear cartilage defect. IMPRESSION: 1. Patellar tendinopathy. 2. Displaced horizontal tear of the body and posterior horn of the medial meniscus with a 2 mm parameniscal cyst adjacent to the posterior horn of the medial meniscus. There is a 5 x 5 mm parameniscal fragment displaced into the inferomedial gutter with associ ated myxoid degeneration. Dictated: Enio Pool MD On: 08/09/2020 11:55 AM Electronically signed by: Enio Pool MD On: 08/09/2020 12:23 PM Transcribed: 08/09/2020 12:16 PM Norma Alexander Sincere BOYCE MRI PROCEDURES documented in this encounter Visit Diagnoses Diagnosis Other tear of medial meniscus, current i njury, left knee, initial encounter documented in this encounter Care Teams Machine Bobbin Winder Relationship Specialty Start Date End Date Sapphire Montez MD PCP - General Internal Medicine 08/06/18 documented as of this encounter
--- OUTSIDE RECORDS SUMMARY | 2022-07-17 08:04 | XMS_ITS | Encounter Summary ---
:1960 Author Organization [facility] Address [address] [place] [address] Care Team Providers Name Role Phone Sapphire Montez MD Primary Care Provider [phone] Reason for Visit Auth/Cert Specialty Diagnoses / Procedures Referred By Contact Refer red To Contact Procedures ARTHROSCOPY KNEE, partial medial MENISCECTOMY Referral ID Status Reason Start Date Expiration Date Visits Requ ested Visits Authorized [id number] 1 1 Encounter Details Date Type Department Care Team Description 08/24/2020 Hospital Encounter [facility] [address] [place] [address] [address] [place] [address] [id number] Social History Tobacco Use Types Packs/Day Years [...] Sign Reading Time Taken Comments Blood Pressure 129/60 08/24/2020 9:55 AM EDT Pulse 59 08/24/2020 9:55 AM EDT Temperature 36.7 ??C (98 ??F) 08/24/2020 9:55 AM EDT Respiratory Rate 16 08/24/2020 9:55 AM EDT Oxygen Saturation 99% 08/24/2020 9:55 AM EDT Inhaled Oxygen Concentration - - [...] includes narcotic pain medications such as Percocet, Kalama and Vicodin. Roxicodone 5mg PO given at 09:12am. Scopolamine (Absorbed through the skin) Scopolamine (paxg-HYC-c-meen) Treat nausea and vomiting. Brand Name(s):Transderm Scop [...] pharmacist before using any other medicine, including lhyx-fcv-vuonnzr medicines,vitamins, and herbal products. Tell your doctor [...] effects. You may report side effects to [facility] at [phone] ?? Copyright [employer] 2017 Generated on Friday, May 25, 2018 9:02:21 AM It is the intent of [facility] that this document be used as [...] Keep active - Exercise legs with ankle pumps/[place] if allowed by doctor ??? Drink plenty [...] were not included. PRE-OPERATIVE INSTRUCTIONS ??? [facility] staff will contact you the day before yoursurgery to provide your day of surgery arrival time. If you have not heard from us by 4 p.m., call [phone]. ??? Do not eat solid foods or [...] your valuable at home. ??? Remove nail lao, if instructed by your surgeon. Be aware, [...] bring your Advanced Directive/Living Will/Medical Power of Rn Transport or Custody Papers. ??? Bring any medical [...] surgery. Person driving you home from surgery? -James Contact number: [phone] May we discuss your medical information with [...] AM EDT Orthopedic Surgery Operative Report PATIENT: Maog Branham DATE OF : 1960 CSN: [id number] Preoperative Diagnosis: Left medial meniscus tear Postoperative Diagnosis: Same Procedure Performed: 1. Partial medial medial meniscectomy involving portion of the posterior 1/3 2. Synevectomy partial Primary Surgeon: Sincere Mayfield MD Senior Research Executive: Long Goods Drier: Delfina Red RN Scrub Person: Gaurav Dye They assisted with positioning, prepping, draping, wound closure, and bandage application. The use of a physician acute care certified nursing assistant was required due to the complexity [...] neurologic injury, premature failure of implants, dislocation, DE, stroke or . Description of the Operation: [...] MAR Action Action Date Dose Rate Site ibuprofen (Advil) tablet 600 mg Given 08/24/2020 [...] Only give if patient has received acetaminophen. documented in this encounter Care Teams Small Parts Shaper Operator Relationship Specialty Start Date End Date Sapphire Montez MD PCP - General Internal Medicine 08/06/18 documented as of this encounter
--- OUTSIDE RECORDS SUMMARY | 2022-07-17 08:04 | XMS_ITS | Encounter Summary ---
:1960 Author Organization [facility] Address [address] [place] [address] Care Team Providers Name Role Phone Sapphire Montez MD Primary Care Provider [phone] Encounter Details Date Type Department Care Team Description 11/15/2019 Travel Social History Tobacco Use Types Packs/Day [...] on filedocumented in this encounter Care Teams Facilities Director Relationship Specialty Start Date End Date Sapphire Montez MD PCP - General Internal Medicine 08/06/18 documented as of this encounter
--- OUTSIDE RECORDS SUMMARY | 2022-07-17 08:04 | XMS_ITS | Encounter Summary ---
:1960 Author Organization [facility] Address [address] [place] [address] Care Team Providers Name Role Phone Sapphire Montze MD Primary Care Provider [phone] Reason for Visit Reason Comments Urinary Retention tesfaye removed [phone] this morn ing post op hip surgery Auth/Cert Specialty Diagnoses / Procedures Referred By Contact Refer red To Contact Diagnoses Strain of adductor muscle, fascia and tendon of unspecified thigh, subsequent encounter Procedures CLOSED REDUCTION PERCUTANEOUS PINNING LEFT HIP 7.3 SYNTHES JACOB SCREW ELINA FX TABLE Referral ID Status Reason Start Date Expiration Date Visits Requ ested Visits Authorized [id number] 1 1 Encounter Details Date Type Department Care Team Description 11/15/2019 Emergency [facility] FineRyan waddell Dehydration ([facility] Dany Carter MD Dx) Department [address] [facility] [address] [place] [id number] [phone] Social History Tobacco Use Types Packs/Day Years [...] Sign Reading Time Taken Comments Blood Pressure 145/72 11/15/2019 7:59 PM EST Pulse 77 11/15/2019 7:59 PM EST Temperature 36.7 ??C (98.1 ??F) 11/15/2019 7:59 PM EST Respiratory Rate 16 11/15/2019 7:59 PM EST Oxygen Saturation 99% 11/15/2019 7:59 PM EST Inhaled Oxygen Concentration - - Weight 52.2 kg (115 lb) 11/15/2019 5:31 PM EST Height 157.5 cm (5' 2) 11/15/2019 5:31 PM EST Body Mass Index 21.03 11/15/2019 5:31 PM EST documented in this encounter Discharge Instructions AttachmentsThe following attachments cannot be sent through Care Everywhere. Dehydration Adult Fwnk-ap-Smle (Angolan)documented in this encounter Medications at Time of [...] confirm dosage DOS day. ranolazine (RANEXA) 500 Take 500 mg by mouth 0 mg 12 hr tablet 2 (two) times a day. Do not crush, chew, or split. sennosides (SENOKOT ORAL) Take 1 tablet by 0 mouth 1 (one) time each day. traZODone (DESYREL) 50 mg Take 25 mg by mouth 0 tabletIndications: every night. 25-50mg nightly ondansetron ODT (ZOFRAN Take 1 tablet (4 mg 20 tablet 0 11/22/2019 ODT) 4 mg tablet total) by mouth every 8 (eight) hours if needed for nausea or vomiting for up to 7 days. dilTIAZem (CARDIZEM) 120 Take 240 mg by mouth 0 11/19/2019 mg immediate release 1 (one) time each tablet day. ibuprofen (ADVIL) 200 mg Take 200 mg by mouth 0 08/16/2020 tablet 2 (two) times a day if needed for mild pain. isosorbide dinitrate Take 5 mg by mouth 3 0 11/18/2019 (ISORDIL) 5 mg tablet (three) times a day. rosuvastatin (CRESTOR) 20 Take 20 mg by mouth 0 11/19/2019 mg tablet 1 (one) time each day. documented as of this encounter ED Notes Carmelita Perez RN - 11/15/2019 6:04 PM EST Patient stated nausea is okay at this time and did not need zofran at this time. Carmelita Perez RN 11/15/19 1824 Carmelita Perez RN - 11/15/2019 6:00 PM EST notified that patient bladder scan 242. notified patient has been having nausea/vomiting. MD stated he would place order. Carmelita Perez RN 11/15/19 1824 Ryan Johnston Jr., MD - 11/15/2019 5:18 PM EST HPI Chief Complaint Patient presents with ??? Urinary Retention tesfaye removed 0800 this morning post op hip surgery The patient is a 59-year-old female who recently had a hip surgery. She was discharged this morning and had her Tesfaye removed at 8:00 a.m.. He she has not urinated since having her Tesfaye removed. She has been nauseous and not eating or drinking much. She also has mild diffuse abdominal discomfort. Shedenies other symptoms. No aggravating or alleviating factors. No history of similar problems in the past. Patient History Past Medical History: Diagnosis Date [...] Systems Review of Systems Constitutional: Positive for appetite change. Negative for chills and fever. HENT: Negative for ear pain and sore throat. Eyes: Negative for pain and visual disturbance. Respiratory: Negative for cough and shortness of breath. Cardiovascular: Negative for chest pain and palpitations. Gastrointestinal: Positive for abdominal pain and nausea. Genitourinary: Positive for decreased urine volume. Negative for dysuria and hematuria. Musculoskeletal: Negative for arthralgias and back pain. Skin: Negative for color change and rash. Neurological: Negative for seizures and syncope. All other systems reviewed and are negative. Physical Exam ED Triage Vitals Temp Pulse Resp BP SpO2 11/15/19 1731 11/15/19 1731 11/15/19 1731 11/15/19 1731 11/15/19 1731 98 ??F (36.7 ??C) 75 18 (!) 178/81 100 % Temp src HR Source Patient Position BP Location FiO2 (%) 11/15/19 1731 11/15/19 1959 11/15/19 1731 11/15/19 1731 -- Oral Monitor Sitting Right upper arm Physical Exam Vitals signs and nursing note [...] soft. Tenderness: There is no abdominal tenderness. Skin: General: Skin is warm and dry. Neurological: General: No focal deficit present. Mental Status: She is alert. Psychiatric: Mood and Affect: Mood normal. ED Course & MDM Procedures Labs Reviewed CBC WITH AUTO DIFFERENTIAL - Abnormal Result Value WBC 8.96 RBC 3.91 Hemoglobin 12.3 Hematocrit 37 MCV 96 MCH 32 MCHC 33 RDW-SD 44.2 RDW-CV 12.4 MPV 10.2 Platelets 193 nRBC 0 Neutrophils % 82 (*) Lymphocytes % 9 (*) Monocytes % 9 Eosinophils % 0 Basophils % 0 Immature Granulocytes 0 Neutrophils Absolute 7.34 Lymphocytes Absolute 0.79 Monocytes Absolute 0.76 Eosinophils Absolute 0.01 Basophils Absolute 0.03 Immature Granulocytes Absolute 0.03 Differential Type Auto Morphology Review NOT PERFORMED COMPREHENSIVE METABOLIC PANEL - Abnormal Glucose 110 (*) BUN 6 (*) Creatinine 0.6 (*) Sodium 129 (*) Potassium 3.8 Chloride 95 (*) CO2 26 Calcium 9.1 Total Protein 6.4 Albumin 4.1 AST 24 Alkaline Phosphatase 48 ALT (SGPT) 22 Total Bilirubin 0.5 eGFR >60 Anion Gap (K+ excluded) 8 No orders to display MDM Number of Diagnoses or Management Options Dehydration: new and requires workup Amount and/or Complexity of Data Reviewed Clinical lab tests: reviewed Tests in the medicine section of CPT??: reviewed Independent visualization of images, tracings, or specimens: yes Risk of Complications, Morbidity, and/or Mortality Presenting problems: moderate Patient Progress Patient progress: improved Disposition: Discharge Diagnoses: Dehydration Clinical Impression: 1. Dehydration Disposition: Discharge Discharge Medication List as of 11/15/2019 7:31 PM START taking these medications Details ondansetron ODT (ZOFRAN ODT) 4 mg tablet Take 1 tablet (4 mg total) by mouth every 8 (eight) hours if needed for nausea or vomiting for up to 7 days., Starting Thu11/15/2019, Until Thu11/22/2019, Print Follow Up: Sapphire Montez MD [address] [place], [place] [id number] Schedule an appointment as soon as possible for a visit . . . Ryan Johnston Jr., MD 11/20/19 6701 documented in this encounter Plan of Treatment Not on filedocumented as of this encounter Procedures Procedure Name Priority Date/Time Associated Comments Diagnosis CBC WITH AUTO STAT 11/15/2019 6:08 PM Results for this DIFFERENTIAL EST procedure are i n the results section. COMPREHENSIVE STAT 11/15/2019 6:08 PM Results for this METABOLIC PANEL EST procedure ar e in the results section. documented in this encounter Results (ABNORMAL) Comprehensive metabolic panel (11/15/2019 6:08 PM EST) Analysis Performed At Patho logist Time Signature Glucose 110 (H) 65 - 105 LAB CHEMISTRY 11/15/2019 [facility] mg/dL METHOD 6:58 PM EST BUN 6 (L) 7 - 22 LAB CHEMISTRY 11/15/2019 [facility] mg/dL METHOD 6:58 PM EST Creatinine 0.6 (L) 0.7 - 1.2 LAB CHEMISTRY 11/15/2019 [facility] mg/dL METHOD 6:58 PM EST Sodium 129 (L) 137 - 145 LAB CHEMISTRY 11/15/2019 [facility] mmol/L METHOD 6:58 PM EST Potassium 3.8 3.5 - 5.3 LAB CHEMISTRY 11/15/2019 [facility] mmol/L METHOD 6:58 PM EST Chloride 95 (L) 98 - 107 LAB CHEMISTRY 11/15/2019 [facility] mmol/L METHOD 6:58 PM EST CO2 26 22 - 30 LAB CHEMISTRY 11/15/2019 [facility] mmol/L METHOD 6:58 PM EST Calcium 9.1 8.4 - LAB CHEMISTRY 11/15/2019 [facility] 10.2 METHOD 6:58 PM EST mg/dL Total Protein 6.4 6.3 - 8.2 LAB CHEMISTRY 11/15/2019 [facility] g/dL METHOD 6:58 PM EST Albumin 4.1 3.5 - 5.0 LAB CHEMISTRY 11/15/2019 [facility] g/dL METHOD 6:58 PM EST AST 24 14 - 36 LAB CHEMISTRY 11/15/2019 [facility] U/L METHOD 6:58 PM EST Alkaline 48 38 - 126 LAB CHEMISTRY 11/15/2019 [facility] Phosphatase U/L METHOD 6:58 PM EST ALT (SGPT) 22 0 - 34 LAB CHEMISTRY 11/15/2019 [facility] U/L METHOD 6:58 PM EST Total Bilirubin 0.5 0.2 - 1.3 LAB CHEMISTRY 11/15/2019 [facility] mg/dL METHOD 6:58 PM EST eGFR >60 >60 LAB CHEMISTRY 11/15/2019 [facility] mL/min/1. METHOD 6:58 PM EST 73m*2 Anion Gap (K+ 8 3 - 12 LAB CHEMISTRY 11/15/2019 [facility] excluded) mmol/L METHOD 6:58 PM EST Specimen Anatomical Collection Method / Collection Time Recei debbie Time (Source) Location / Volume Laterality Blood Venous blood / Venipuncture / 11/15/2019 6:08 11/15/20 19 6:11 Unknown Unknown PM EST PM EST Ryan Johnston Jr., MD LAB BLOOD ORDERABLES Performing Organization Address City/State/ZIP Code Phon e Number [facility] [address] [place] [address] [phone] (ABNORMAL) CBC auto differential (11/15/2019 6:08 PM EST) Component Value Ref Test Method Analysis Performed At [facility] Range Time Signature WBC 8.96 4.00 - LAB 11/15/2019 [facility] 11.00 HEMETOLOGY 6:14 PM EST K/uL METHOD RBC 3.91 3.80 - LAB 11/15/2019 [facility] 5.00 HEMETOLOGY 6:14 PM EST M/uL METHOD Hemoglobin 12.3 11.0 - LAB 11/15/2019 [facility] 15.0 HEMETOLOGY 6:14 PM EST g/dL METHOD Hematocrit 37 35 - 45 LAB 11/15/2019 [facility] % HEMETOLOGY 6:14 PM EST METHOD MCV 96 81 - 99 LAB 11/15/2019 [facility] fL HEMETOLOGY 6:14 PM EST METHOD MCH 32 28 - 32 LAB 11/15/2019 [facility] pg HEMETOLOGY 6:14 PM EST METHOD MCHC 33 32 - 36 LAB 11/15/2019 [facility] g/dL HEMETOLOGY 6:14 PM EST METHOD RDW-SD 44.2 35.0 - LAB 11/15/2019 [facility] 46.0 fL HEMETOLOGY 6:14 PM EST METHOD RDW-CV 12.4 11.0 - LAB 11/15/2019 [facility] 15.0 % HEMETOLOGY 6:14 PM EST METHOD MPV 10.2 9.0 - LAB 11/15/2019 [facility] 12.5 fL HEMETOLOGY 6:14 PM EST METHOD Platelets 193 130 - LAB 11/15/2019 [facility] 400 K/uL HEMETOLOGY 6:14 PM EST METHOD nRBC 0 <=0 /100 LAB 11/15/2019 [facility] WBCs HEMETOLOGY 6:14 PM EST METHOD Neutrophils % 82 (H) 40 - 75 LAB 11/15/2019 [facility] % HEMETOLOGY 6:14 PM EST METHOD Lymphocytes % 9 (L) 15 - 45 LAB 11/15/2019 [facility] % HEMETOLOGY 6:14 PM EST METHOD Monocytes % 9 2 - 12 % LAB 11/15/2019 [facility] HEMETOLOGY 6:14 PM EST METHOD Eosinophils % 0 0 - 6 % LAB 11/15/2019 [facility] HEMETOLOGY 6:14 PM EST METHOD Basophils % 0 0 - 2 % LAB 11/15/2019 [facility] HEMETOLOGY 6:14 PM EST METHOD Immature 0 % LAB 11/15/2019 [facility] Granulocytes HEMETOLOGY 6:14 PM EST METHOD Neutrophils 7.34 1.60 - LAB 11/15/2019 [facility] Absolute 7.50 HEMETOLOGY 6:14 PM EST K/uL METHOD Lymphocytes 0.79 0.60 - LAB 11/15/2019 [facility] Absolute 4.50 HEMETOLOGY 6:14 PM EST K/uL METHOD Monocytes 0.76 0.10 - LAB 11/15/2019 [facility] Absolute 1.20 HEMETOLOGY 6:14 PM EST K/uL METHOD Eosinophils 0.01 0.00 - LAB 11/15/2019 [facility] Absolute 0.60 HEMETOLOGY 6:14 PM EST K/uL METHOD Basophils 0.03 0.00 - LAB 11/15/2019 [facility] Absolute 0.20 HEMETOLOGY 6:14 PM EST K/uL METHOD Immature 0.03 K/UL LAB 11/15/2019 [facility] Granulocytes HEMETOLOGY 6:14 PM EST Absolute METHOD Differential Auto LAB 11/15/2019 [facility] Type HEMETOLOGY 6:14 PM EST METHOD Morphology NOT LAB 11/15/2019 [facility] Review PERFORMED HEMETOLOGY 6:14 PM EST METHOD Specimen Anatomical Collection Method / Collection Time Recei debbie Time (Source) Location / Volume Laterality Blood Venous blood / Venipuncture / 11/15/2019 6:08 11/15/20 19 6:11 Unknown Unknown PM EST PM EST Ryan Johnston Jr., MD LAB BLOOD ORDERABLES Performing Organization Address City/State/ZIP Code Phon e Number [facility] [address] [place] [address] documented in this encounter Visit Diagnoses Diagnosis Dehydration - Primary documented in this encounter Administered Medications Inactive Administered Medications - up to 3 most recent administrations Medication Order MAR Action Action Date Dose Rate Site sodium chloride 0.9 % bolus New Bag 11/15/2019 6:08 PM EST 1,000 m L 2000 mL/hr 1,000 mL 1,000 mL, intravenous, at 2,000 mL/hr, Administer over 0.5 Hours, Once, On Thu11/15/19 at 1749, For 1 dose sodium chloride 0.9 percent infusion 125 mL/hr, intravenous, Continuous, Starting on Thu at 1749 documented in this encounter Active and Recently Administered Medications Times are shown in EST. Scheduled Medication Order 11/13/2019 11/14/2019 11/15/2019 ondansetron (ZOFRAN) injection 4 mg 180 (Not Given - Provider: Carmelita Perez RN - Reason: Patient/family refused) 4 mg, intravenous, Once, Thu11/15/19 at 1804, For 1 dose sodium chloride 0.9 % bolus 1,000 mL (COMPLETED) 180 (New Bag - Provider: Carmelita Perez, TINA)195 (Stopped - Provider: Allison Gilman RN) 1,000 mL, intravenous, at 2,000 mL/hr, A dminister over 0.5 Hours, Once, On Thu11/15/19 at 1749, For 1 dose Continuous Medication Order 11/13/2019 11/14/2019 11/15/2019 sodium chloride 0.9 percent infusion 1749 (Due) 125 mL/hr, intravenous, at 125 mL/hr, Co ntinuous, Starting on Thu11/15/19 at 1749 documented in this encounter Care Teams Freelance Designer Relationship Specialty Start Date End Date Sapphire Montez MD PCP - General Internal Medicine 08/06/18 documented as of this encounter
--- OUTSIDE RECORDS SUMMARY | 2022-07-17 08:04 | XMS_ITS | Encounter Summary ---
:1960 Author Organization [facility] Address [address] [place] [address] Care Team Providers Name Role Phone Sapphire Montez MD Primary Care Provider [phone] Encounter Details Date Type Department Care Team Description 08/16/2020 Prep for Procedure [facility] Elijah Jeffries [address] [facility] [address] [place], [place] [address] [place], [place] [phone] [id number] Social History Tobacco Use Types Packs/Day Years [...] on filedocumented in this encounter Care Teams Crown Ironer Relationship Specialty Start Date End Date Sapphire Montez MD PCP - General Internal Medicine 08/06/18 documented as of this encounter
--- OUTSIDE RECORDS SUMMARY | 2022-07-17 08:04 | XMS_ITS | Encounter Summary ---
:1960 Author Organization [facility] Address [address] [place] [address] Care Team Providers Name Role Phone Sapphire Montez MD Primary Care Provider [phone] Reason for Visit (Routine) - Closed Specialty Diagnoses / Procedures Referred By Contact Refer red To Contact Diagnoses Pain in left hip Sapphire Montez MD Procedures X-ray Hip Left 2 or 3 Views X-ray Hip 4 or More Views Left CHG RADEX HIP UNILATERAL WITH PELVIS MINIMUM 4 VIEWS CHG RADEX HIP UNILATERAL WITH PELVIS 2-3 VIEWS [address] [facility] [address] [place] [address] Referral ID Status Reason Start Date Expiration Date Visits Requ ested Visits Authorized [id number] Closed 09/18/2019 03/16/2020 1 1 Encounter Details Date Type Department Care Team Description 09/18/2019 Hospital Encounter Medical Imaging at Sapphire Montez [place] [address] [address] [facility], [address] [facility] [address] [address] [place], [place] [phone] [address] Social History Tobacco Use Types Packs/Day Years Used Date Smoking Tobacco: Former Smokeless Tobacco: Never Alcohol Use Standard Drinks/Week Comments No 0 (1 standard drink = 0.6 oz pure alcoho l) Sex Assigned at Date Recorded Not on file Job Start Date Occupation Industry Not on file Not on file Not on file documented as of this encounter Medications at Time of Discharge Medication Sig Dispensed Refills Start Date End Date traZODone (DESYREL) 50 mg Take 25 mg by mouth 0 tabletIndications: every night. 25-50mg nightly dilTIAZem (CARDIZEM) 120 Take 240 mg by mouth 0 11/19/2019 mg immediate release 1 (one) time each tablet day. documented as of this encounter Plan of Treatment Not on filedocumented as of this encounter Procedures Procedure Name Priority Date/Time Associated Diagnosis Comme nts XR HIP 2 OR 3 VW Routine 09/18/2019 10:08 AM Pain in left hip Results for this LEFT EDT procedure are i n the results section. documented in this encounter Results X-ray Hip Left 2 or 3 Views (09/18/2019 10:08 AM EDT) Anatomical Region Laterality Modality Lower Extremities, Hip Left Digital Radiograp hy Specimen (Source) Anatomical Collection Method Collection Time Re ceived Time Location / / Volume Laterality 09/18/2019 10:34 AM EDT Impressions 09/18/2019 10:35 AM EDT No fracture or dislocation. No significa nt osteoporosis of the left hip. Dictated: Natalie Clemons On: 09/18/2019 10:3 4 AM Electronically signed by: Natalie Clemons On: 09/18/2019 10:35 AM Transcribed: Narrative 09/18/2019 10:35 AM EDT Left hip, 2 views Technique: AP view of the pelvis and fro g leg lateral view of the left hip, 2 views, 2 exposures. Comparisons: None available. Reason For Exam: Constant sharp lateral left hip pain for 3 to 4 weeks. FINDINGS: Normal alignment. There is no evidence o f acute fracture or dislocation. The hip joint spaces are maintained. Mild degenerative changes of the pubic symphysis. No significant joint space narrowing of the left hip joint Procedure Note Natalie Clemons MD - 09/18/2019Formatting o f this note might be different from the original. Left hip, 2 views Technique: AP view of the pelvis and fro g leg lateral view of the left hip, 2 views, 2 exposures. Comparisons: None available. Reason For Exam: Constant sharp lateral left hip pain for 3 to 4 weeks. FINDINGS: Normal alignment. There is no evidence o f acute fracture or dislocation. The hip joint spaces are maintained. Mild degenerative changes of the pubic symphysis. No significant joint space narrowing of the left hip joint IMPRESSION: No fracture or dislocation. No significa nt osteoporosis of the left hip. Dictated: Natalie Clemons On: 09/18/2019 10:3 4 AM Electronically signed by: Natalie Clemons On: 09/18/2019 10:35 AM Transcribed: Sapphire Montez MD IMG XR PROCEDURES documented in this encounter Visit Diagnoses Diagnosis Pain in left hip documented in this encounter Care Teams Casing Crew Pusher Relationship Specialty Start Date End Date Sapphire Montez MD PCP - General Internal Medicine 08/06/18 documented as of this encounter
--- OUTSIDE RECORDS SUMMARY | 2022-07-17 08:04 | XMS_ITS | Encounter Summary ---
:1960 Author Organization [facility] Address [address] [place] [address] Care Team Providers Name Role Phone Sapphire Montez MD Primary Care Provider [phone] Reason for Referral Imaging (Routine) - Closed Specialty Diagnoses / Procedures Referred By Contact Refer red To Contact Radiology Diagnoses Strain of adductor muscle, fascia and tendon of unspecified thigh, initial encounter Sincere Mayfield MD Procedures MRI Hip Left wo IV Contrast CHG MRI LOWER EXTREM JT, W/O CONTRAST [address] 2 [address] Referral ID Status Reason Start Date Expiration Date Visits Requ ested Visits Authorized [id number] Closed 10/11/2019 1 1 Reason for Visit Imaging (Routine) - Closed Specialty Diagnoses / Procedures Referred By Contact Refer red To Contact Radiology Diagnoses Strain of adductor muscle, fascia and tendon of unspecified thigh, initial encounter Sincere Mayfield MD Procedures MRI Hip Left wo IV Contrast CHG MRI LOWER EXTREM JT, W/O CONTRAST [address] 2 [address]14 Referral ID Status Reason Start Date Expiration Date Visits Requ ested Visits Authorized [id number] Closed 10/11/2019 1 1 Encounter Details Date Type Department Care Team Description 11/03/2019 Hospital Encounter Medical Imaging of Sincere Mayfield, Strain of adductor [place] ROE muscle, fascia and [address] [place] tendon of [facility], [address] unspecified thigh, [place], [place] [address] initial encounter [id number] [place] [address] Social History Tobacco Use Types Packs/Day Years [...] Priority Date/Time Associated Diagnosis Comme nts MR HIP LEFT WO IV Routine 11/03/2019 10:09 PM Strain of adduct or Results for this CONTRAST EST muscle, fascia and procedure are in tendon of the results unspecified thigh, section. initial encounter documented in this encounter Results MRI Hip Left wo IV Contrast (11/03/2019 10:09 PM EST) Anatomical Region Laterality Modality Lower Extremities, Hip Left Magnetic Resonanc e Specimen (Source) Anatomical Collection Method Collection Time Re ceived Time Location / / Volume Laterality 11/04/2019 1:27 PM EST Impressions 11/04/2019 2:05 PM EST Stress fracture of the medial aspect of the left femoral neck with mild adjacent soft tissue edema. Small bilateral hip joint effusions and mild fraying of the left hip acetabular labrum. Dictated: Jung Priest MD On: 11/04/20 19 1:27 PM Electronically signed by: Jung Priest MD On: 11/04/2019 2:05 PM Transcribed: 11/04/2019 1:59 PM Brenda centenoson Narrative 11/04/2019 2:05 PM EST HISTORY: Strain of adductor muscle, fascia and tendon of the left thigh. On going pain and decreased range of motion for the past 8 months. No known injuries TECHNIQUE: MRI of the left hip was perfo rmed without intravenous contrast. Multiplanar and multisequence imaging obtained at [facility] on a 1.5 Ivanna scanner. FINDINGS: There is bone marrow edema sig nal seen along the medial margin/lesser curve of the left femoral neck. This is consistent with a medial left fe moral neck stress fracture with mild adjacent soft tissue edema. Small hip joint effusions are noted. Mild fraying of the lateral acetabular labrum. Procedure Note Jung Priest MD - 11/04/2019Formatt ing of this note might be different from the original. HISTORY: Strain of adductor muscle, fasc ia and tendon of the left thigh. On going pain and decreased range of motion for the past 8 months. No known injuries TECHNIQUE: MRI of the left hip was perfo rmed without intravenous contrast. Multiplanar and multisequence imaging obtained at [facility] on a 1.5 Ivanna scanner. FINDINGS: There is bone marrow edema sig nal seen along the medial margin/lesser curve of the left femoral neck. This is consistent with a medial left fe moral neck stress fracture with mild adjacent soft tissue edema. Small hip joint effusions are noted. Mild fraying of the lateral acetabular labrum. IMPRESSION: Stress fracture of the medial aspect of the left femoral neck with mild adjacent soft tissue edema. Small bilateral hip joint effusions and mild fraying of the left hip acetabular labrum. Dictated: Jung Priest MD On: 11/04/20 1:27 PM Electronically signed by: Jung Priest MD On: 11/04/2019 2:05 PM Transcribed: 11/04/2019 1:59 PM Brenda bourgeois Sincere Mayfield MD IMG MRI PROCEDURES documented in this encounter Visit Diagnoses Diagnosis Strain of adductor muscle, fascia and te ndon of unspecified thigh, initial encounter documented in this encounter Care Teams Dental Cream Maker Relationship Specialty Start Date End Date Sapphire Montez MD PCP - General Internal Medicine 08/06/18 documented as of this encounter
--- OUTSIDE RECORDS SUMMARY | 2022-07-17 08:04 | XMS_ITS | Encounter Summary ---
:1960 Author Organization [facility] Address [address] [place] [address] Care Team Providers Name Role Phone Sapphire Montez MD Primary Care Provider [phone] Encounter Details Date Type Department Care Team Description 11/14/2019 Travel Social History Tobacco Use Types Packs/Day [...] on filedocumented in this encounter Care Teams Supervisor [employer] Relationship Specialty Start Date End Date Sapphire Montez MD PCP - General Internal Medicine 08/06/18 documented as of this encounter
--- OUTSIDE RECORDS SUMMARY | 2022-07-17 08:04 | XMS_ITS | Encounter Summary ---
:1960 Author Organization [facility] Address [address] [place] [address] Care Team Providers Name Role Phone Sapphire Montez MD Primary Care Provider [phone] Encounter Details Date Type Department Care Team Description 11/11/2019 Travel Social History Tobacco Use Types Packs/Day [...] on filedocumented in this encounter Care Teams Drawbridge Operator Relationship Specialty Start Date End Date Sapphire Montez MD PCP - General Internal Medicine 08/06/18 documented as of this encounter
--- OUTSIDE RECORDS SUMMARY | 2022-07-17 08:04 | XMS_ITS | Encounter Summary ---
:1960 Author Organization [facility] Address [address] [place] [address] Care Team Providers Name Role Phone Sapphire Montez MD Primary Care Provider [phone] Reason for Visit Auth/Cert Specialty Diagnoses / Procedures Referred By Contact Refer red To Contact Diagnoses Strain of adductor muscle, fascia and tendon of unspecified thigh, subsequent encounter Procedures CLOSED REDUCTION PERCUTANEOUS PINNING LEFT HIP 7.3 SYNTHES JACOB SCREW ELINA FX TABLE Referral ID Status Reason Start Date Expiration Date Visits Requ ested Visits Authorized [id number] 1 1 Encounter Details Date Type Department Care Team Description 11/11/2019 Office Visit Outreach Lab Ree Diagno sis unknown (Primary Melvin Dx) [address] [phone] Social History Tobacco Use Types Packs/Day Years [...] Procedure Name Priority Date/Time Associated Comments Diagnosis ECG 12-LEAD Routine 11/11/2019 12:27 Diagnosis unknown Result s for this PM EST procedure are i n the results section. CBC WITH AUTO Routine 11/11/2019 11:53 Diagnosis unknown Resul ts for this DIFFERENTIAL AM EST procedure are i n the results section. BASIC METABOLIC PANEL Routine 11/11/2019 11:53 Diagnosis unkno wn Results for this AM EST procedure are i n the results section. documented in this encounter Results ECG 12 lead (11/11/2019 12:27 PM EST) P athologist Signature [place] Interval 173 ms [facility] QRSD Interval 83 ms [facility] QT Interval 444 ms [facility] QTcB 451 ms [facility] QTcF 449 ms [facility] QRS Horizontal -24 deg [facility] [place] [facility] QRS [place] 72 deg [facility] Specimen (Source) Anatomical Collection Method Collection Time Re ceived Time Location / / Volume Laterality 11/11/2019 12:27 PM EST Impressions [facility] - 11/12/2019 6:31 AM EST Sinus rhythm normal P axis, V-rate 50-99 Probable left atrial enlargement P >50mS, <-0.10mV V1 Narrative This result has an attachment that is no t available. Procedure Note Tammy Ruano MD - 11/12/2019 IMPRESSION: Sinus rhythm normal P axis, V-rate 50-99 Probable left atrial enlargement P >50mS, <-0.10mV V1 Sapphire Montez MD ECG ORDERABLES Performing Organization Address City/State/ZIP Code Phon e Number [facility] [address] [place] [address] Basic metabolic panel (11/11/2019 11:53 AM EST) Analysis Performed At Patho logist Time Signature Glucose 90 65 - 105 LAB CHEMISTRY 11/11/2019 [facility] mg/dL METHOD 1:12 PM EST BUN 11 7 - 22 LAB CHEMISTRY 11/11/2019 [facility] mg/dL METHOD 1:12 PM EST Creatinine 0.8 0.7 - 1.2 LAB CHEMISTRY 11/11/2019 [facility] mg/dL METHOD 1:12 PM EST Sodium 139 137 - 145 LAB CHEMISTRY 11/11/2019 [facility] mmol/L METHOD 1:12 PM EST Potassium 4.0 3.5 - 5.3 LAB CHEMISTRY 11/11/2019 [facility] mmol/L METHOD 1:12 PM EST Chloride 102 98 - 107 LAB CHEMISTRY 11/11/2019 [facility] mmol/L METHOD 1:12 PM EST CO2 28 22 - 30 LAB CHEMISTRY 11/11/2019 [facility] mmol/L METHOD 1:12 PM EST Calcium 9.7 8.4 - 10.2 LAB CHEMISTRY 11/11/2019 [facility] mg/dL METHOD 1:12 PM EST eGFR >60 >60 LAB CHEMISTRY 11/11/2019 [facility] mL/min/1.7 METHOD 1:12 PM EST 3m*2 Anion Gap (K+ 9 3 - 12 LAB CHEMISTRY 11/11/2019 [facility] excluded) mmol/L METHOD 1:12 PM EST Specimen Anatomical Collection Method / Collection Time Recei debbie Time (Source) Location / Volume Laterality Blood Venous blood / Venipuncture / 11/11/2019 11:53 019 Unknown Unknown AM EST 11:53 AM EST [facility] LAB BLOOD ORDERABLES Performing Organization Address City/State/ZIP Code Phon e Number [facility] [address] [place] [address] (ABNORMAL) CBC auto differential (11/11/2019 11:53 AM EST) Component Value Ref Test Method Analysis Performed At Patho logist Range Time Signature WBC 6.46 4.00 - LAB 11/11/2019 [facility] 11.00 HEMETOLOGY 12:41 PM K/uL METHOD EST RBC 4.42 3.80 - LAB 11/11/2019 [facility] 5.00 HEMETOLOGY 12:41 PM M/uL METHOD EST Hemoglobin 13.8 11.0 - LAB 11/11/2019 [facility] 15.0 HEMETOLOGY 12:41 PM g/dL METHOD EST Hematocrit 44 35 - 45 LAB 11/11/2019 [facility] % HEMETOLOGY 12:41 PM METHOD EST MCV 99 81 - 99 LAB 11/11/2019 [facility] fL HEMETOLOGY 12:41 PM METHOD EST MCH 31 28 - 32 LAB 11/11/2019 [facility] pg HEMETOLOGY 12:41 PM METHOD EST MCHC 32 32 - 36 LAB 11/11/2019 [facility] g/dL HEMETOLOGY 12:41 PM METHOD EST RDW-SD 46.4 (H) 35.0 - LAB 11/11/2019 [facility] 46.0 fL HEMETOLOGY 12:41 PM METHOD EST RDW-CV 12.6 11.0 - LAB 11/11/2019 [facility] 15.0 % HEMETOLOGY 12:41 PM METHOD EST MPV 10.8 9.0 - LAB 11/11/2019 [facility] 12.5 fL HEMETOLOGY 12:41 PM METHOD EST Platelets 244 130 - LAB 11/11/2019 [facility] 400 K/uL HEMETOLOGY 12:41 PM METHOD EST nRBC 0 <=0 /100 LAB 11/11/2019 [facility] WBCs HEMETOLOGY 12:41 PM METHOD EST Neutrophils % 58 40 - 75 LAB 11/11/2019 [facility] % HEMETOLOGY 12:41 PM METHOD EST Lymphocytes % 31 15 - 45 LAB 11/11/2019 [facility] % HEMETOLOGY 12:41 PM METHOD EST Monocytes % 10 2 - 12 % LAB 11/11/2019 [facility] HEMETOLOGY 12:41 PM METHOD EST Eosinophils % 1 0 - 6 % LAB 11/11/2019 [facility] HEMETOLOGY 12:41 PM METHOD EST Basophils % 1 0 - 2 % LAB 11/11/2019 [facility] HEMETOLOGY 12:41 PM METHOD EST Immature 0 % LAB 11/11/2019 [facility] Granulocytes HEMETOLOGY 12:41 PM METHOD EST Neutrophils 3.72 1.60 - LAB 11/11/2019 [facility] Absolute 7.50 HEMETOLOGY 12:41 PM K/uL METHOD EST Lymphocytes 1.99 0.60 - LAB 11/11/2019 [facility] Absolute 4.50 HEMETOLOGY 12:41 PM K/uL METHOD EST Monocytes 0.62 0.10 - LAB 11/11/2019 [facility] Absolute 1.20 HEMETOLOGY 12:41 PM K/uL METHOD EST Eosinophils 0.07 0.00 - LAB 11/11/2019 [facility] Absolute 0.60 HEMETOLOGY 12:41 PM K/uL METHOD EST Basophils 0.04 0.00 - LAB 11/11/2019 [facility] Absolute 0.20 HEMETOLOGY 12:41 PM K/uL METHOD EST Immature 0.02 K/UL LAB 11/11/2019 [facility] Granulocytes HEMETOLOGY 12:41 PM Absolute METHOD EST Differential Auto LAB 11/11/2019 [facility] Type HEMETOLOGY 12:41 PM METHOD EST Morphology NOT LAB 11/11/2019 [facility] Review PERFORMED HEMETOLOGY 12:41 PM METHOD EST Specimen Anatomical Collection Method / Collection Time Recei debbie Time (Source) Location / Volume Laterality Blood Venous blood / Venipuncture / 11/11/2019 11:53 019 Unknown Unknown AM EST 11:53 AM EST Gelacio MARI LAB BLOOD ORDERABLES Performing Organization Address City/State/ZIP Code Phon e Number [facility] [address] [place] [address] documented in this encounter Visit Diagnoses Diagnosis Diagnosis unknown - Primary documented in this encounter Care Teams Circulation Worker Relationship Specialty Start Date End Date Sapphire Montez MD PCP - General Internal Medicine 08/06/18 documented as of this encounter
--- OUTSIDE RECORDS SUMMARY | 2022-07-17 08:05 | XMS_ITS | Encounter Summary ---
:1960 Author Organization [facility] Address [address] [place] [address] Care Team Providers Name Role Phone Sapphire Montez MD Primary Care Provider [phone] Reason for Referral Imaging (Routine) - Closed Specialty Diagnoses / Procedures Referred By Contact Refer red To Contact Cardiology Diagnoses PFO (patent foramen ovale) She Lopez MD Procedures Transesophageal Echo (LENNY) [address] [facility] [address] [address] [place] [address] Referral ID Status Reason Start Date Expiration Date Visits Requ ested Visits Authorized [id number] Closed 07/29/2018 1 1 Reason for Visit Imaging (Routine) - Closed Specialty Diagnoses / Procedures Referred By Contact Refer red To Contact Cardiology Diagnoses PFO (patent foramen ovale) She Lopez MD Procedures Transesophageal [facility] (LENNY) [address] [facility] [place] [address] [place] [address] Referral ID Status Reason Start Date Expiration Date Visits Requ ested Visits Authorized [id number] Closed 07/29/2018 1 1 Encounter Details Date Type Department Care Team Description 08/06/2018 Hospital Encounter [facility] [employer] Nikolas Hines PFO ( patent foramen Holding MD Gelacio ovale) [address] [facility] [address] [place] [address] [facility] [phone] [place] [address] Social History Tobacco Use Types Packs/Day Years [...] Sign Reading Time Taken Comments Blood Pressure 129/72 08/06/2018 11:30 AM EDT Pulse 68 08/06/2018 11:30 AM EDT Temperature 36.6 ??C (97.8 ??F) 08/06/2018 9:49 AM EDT Respiratory Rate 0 08/06/2018 11:30 AM EDT Oxygen Saturation 89% 08/06/2018 11:30 AM EDT Inhaled Oxygen Concentration - - Weight 51.5 kg (113 lb 8.6 oz) 08/06/2018 9:49 AM EDT Height 157.5 cm (5' 2) 08/06/2018 9:49 AM EDT Body Mass Index 20.77 08/06/2018 9:49 AM EDT documented in this encounter Discharge Instructions Discharge InstructionsAnai Hirsch RN - 08/06/2018 12:07 PM EDT Images from the original note were not included. Patient Foramen Ovale, Adult A foramen ovale is a hole between the upper chambers (right atrium and left atrium) of the heart. Before you are born, it is normal to have this hole in your heart. The hole allows blood to circulate through the body without having to go through the lungs. After your , when you are able to breathe, you do not need the foramen ovale and it usually closes. If the hole does not close, it is called a patent foramen ovale (PFO). PFO is a common condition. Most people do not know they have this hole and they do not have any health problems caused by it. What are the causes? The cause of this condition is not known. What increases the risk? You are more likely to develop this condition if: ?? You have a family history of PFO. ?? You also have other heart disease that is present at (congenital heart disease). What are the signs or symptoms? In most cases, there are no symptoms of this condition. Possible rare symptoms include: ?? Stroke caused by a blood clot. ?? Transient ischemic attack (TIA). This is a warning stroke that causes stroke-like symptoms thatgo away quickly. ?? Migraine headaches. How is this diagnosed? This condition may be diagnosed based on: ?? A physical exam and your medical history. ?? Echocardiogram. This test uses sound waves to produce images of the heart. ?? Transesophageal echocardiogram (LENNY). This type of echocardiogram is performed by placing a probein the part of the body that moves food from the mouth to the stomach (esophagus). ?? Electrocardiogram (ECG). This test identifies changes in the electrical activity of the heart. ?? Cardiac MRI. This is an imaging technique that is used to visualize the heart, if further images are needed after LENNY. How is this treated? Usually, no treatment is needed. If your condition is associated with symptoms or blood clots, you may need: ?? Medicines to prevent blood clots and strokes (anticoagulant or antiplatelet medicines). ?? A surgical procedure to close the hole (transcatheter closure). Follow these instructions at home: ?? Take [id number] and prescription medicines only as told by your health care provider. ?? Keep all follow-up visits as told by your health care provider. This is important. Contact a health care provider if: ?? You have a fever. ?? You have frequent or severe headaches. Get help right away if: ?? Your skin turns blue. ?? You have chest pain or difficulty breathing. ?? You have any symptoms of stroke. BE FAST is an easy way to remember the main warning signs of stroke: ?? B - Balance. Signs are dizziness, sudden trouble walking, or loss of balance. ?? E - Eyes. Signs are trouble seeing or a sudden change in vision. ?? F - Face. Signs are sudden weakness or numbness of the face, or the face or eyelid drooping on one side. ?? A - Arms. Signs are weakness or numbness in an arm. This happens suddenly and usually on one sideof the body. ?? S - Speech. Signs are sudden trouble speaking, slurred speech, or trouble understanding what people say. ?? T - Time. Time to call emergency services. Write down what time symptoms started. ?? You have other signs of stroke, which may include: ?? A sudden, severe headache with no known cause. ?? Nausea or vomiting. ?? Seizure. These symptoms may represent a serious problem that is an emergency. Do not wait to see if the symptoms will go away. Get medical help right away. Call your local emergency services (911 in the [place] Do not drive yourself to the hospital. Summary ?? A patent foramen ovale is a hole between the upper chambers (right atrium and left atrium) of your heart. The cause of this condition is not known. ?? You may not know that you have a hole in your heart, and you may not have any health problems associated with it. ?? Usually, no treatment is needed for this condition unless it is associated with symptoms or bloodclots. This information is not intended to replace advice given to you by your health care provider. Make sure you discuss any questions you have with your health care provider. Document Released: 01/19/2018 Document Revised: 01/19/2018 Document Reviewed: 01/19/2018 [employer] Patient Education ?? 2018 [employer] AttachmentsThe following attachments cannot be sent through Care Everywhere. Gastrointestinal Endoscopy Adult Care After (Faroese)documented in this encounter Medications at Time of [...] Procedure Name Priority Date/Time Associated Comments Diagnosis TRANSESOPHAGEAL ECHO Routine 08/06/2018 1:02 PFO (patent Resu lts for this (LENNY) COMPLETE PM EDT foramen ovale) procedure a re in the results section. GREEN TOP TUBE Routine 08/06/2018 9:22 Results fo r this AM EDT procedure are i n the results section. EXTRA TUBES Routine 08/06/2018 9:22 Results for this AM EDT procedure are i n the results section. MAGNESIUM Routine 08/06/2018 9:22 Results for this AM EDT procedure are i n the results section. BASIC METABOLIC PANEL Routine 08/06/2018 9:22 Res ults for this AM EDT procedure are i n the results section. CBC WITH AUTO STAT 08/06/2018 9:21 Results for this DIFFERENTIAL AM EDT procedure are i n the results section. PROTIME-INR STAT 08/06/2018 9:18 Results for this AM EDT procedure are i n the results section. documented in this encounter Results TRANSESOPHAGEAL ECHO (LENNY) COMPLETE (08/06/2018 1:02 PM EDT) Anatomical Region Laterality Modality Ultrasound Specimen (Source) Anatomical Collection Method Collection Time Re ceived Time Location / / Volume Laterality 08/06/2018 10:33 AM EDT Narrative 08/06/2018 1:39 PM EDT [facility] [address] [place] [address]. [place] [id number] [facility] Diagnostic Card iology Services Transesophageal Echocardiogram Facility: [facility] Name: MAGO THOMAS ?Study Date: 08/06/2018 10:33 AM ? Age: 57 yrs Gender: Female ?: 1960 Patient Status: Outpatient ?Patient Location: [facility] History: TIA Height: 62 in ? HR: 71 Weight: 112 lb ?BP: 109/54 mmHg BSA: 1.5 m2 Reason For Study: Other, Specify in Comm ents Ordering Physician: SHE LOPEZ Referring Physician: SHE LOPEZ Performed By: Jere Mcleod Quality and Procedure An intravenous line was placed. A bite b lock was inserted. Informed consent for Transesophageal Echocardiogram was obtained prior to the procedure. The transesophageal probe was passed without difficulty. The patient's vital signs, including blo od pressure, heart rate, pulse oximetry and cardiac rhythm were monitored throughout the procedure and r emained stable. The patient tolerated the procedure well without evidence of orophangeal or esophageal tr auma. A 2D transesophageal echocardiogram with spectral and color flow Doppler was performed. IV concious sedation was administered using propofol. Left Ventricle The left ventricle is normal in size. Th ere is no thrombus. There is normal left ventricular wall thickness. Left ventricular systolic function is no rmal. The left ventricular wall motion is normal. Right Ventricle The right ventricle is normal in size an d function. There is normal right ventricular wall thickness. Atrium The left atrial size is normal. Right at rial size is normal. The interatrial septum is intact with no evidence for an atrial septal defect. In jection of contrast documented no interatrial shunt. Mitral Valve The mitral valve leaflets are thin and p liable. There is no evidence of mitral valve prolapse. There is no mitral valve stenosis. There is trace mi tral regurgitation. Tricuspid Valve The tricuspid valve is normal in structu re and function. There is no tricuspid valve prolapse. There is no tricuspid stenosis. No tricuspid regurgi tation. Aortic Valve The aortic valve is trileaflet. The aort ic valve opens well. There is no aortic valvular vegetation. No hemodynamically significant valvular aor tic stenosis. Trace aortic regurgitation. Pulmonic Valve The pulmonic valve is normal in structur e and function. There is no pulmonic valvular stenosis. There is no pulmonic valvular regurgitation. Vessels The aortic root is normal size. No obvio us dissection could be visualized. The pulmonary artery is normal size. Pericardial and Pleural Space There is no pericardial effusion. There is no pleural effusion. Interpretation Summary There is normal left ventricular wall th ickness. Left ventricular systolic function is no rmal. The right ventricle is normal in size an d function. The left atrial size is normal. Right atrial size is normal. Injection of contrast documented no inte ratrial shunt. The interatrial septum is intact with no evidence for an atrial septal defect. There is trace mitral regurgitation. The tricuspid valve is normal in structu re and function. Trace aortic regurgitation. The aortic valve is trileaflet. The pulmonic valve is normal in structur e and function. The aortic root is normal size. There is no pericardial effusion. Electronically signed by:She Lopez MD ?? on ?? 08/06/2018 01:39 PM According to ACC/AHA Guidelines: Angiotension converting enzyme inhibitor s or Angiotension II receptor blockers approved for the treatment of HF are recommended for all patients with current or prior symptoms of HF and reduced LVEF, unless contraindicated. (Class I, Level of Evid ence: A) ACC/AHA Practice Guidelines, Jani et al. 2005, p. [phone] Please consider treatment for patients w ith an EF <40% or document contraindication to BOTH ZUNILDA-I/ARB. Please refer to ACC Guidelines for indic ations and contraindications. Procedure Note She Lopez MD - 08/06/2018Formatti ng of this note might be different from the original. [facility] [address] [place] [address] [facility] Diagnostic Card iology Services Transesophageal Echocardiogram Facility: [facility] Name: MAGO THOMAS Study Date: 10:33 AM Age: 57 yrs Gender: Female : 1960 Patient Status: Outpatient Patient Locat ion: [facility] History: TIA Height: 62 in HR: 71 Weight: 112 lb BP: 109/54 mmHg BSA: 1.5 m2 Reason For Study: Other, Specify in Comm ents Ordering Physician: SHE LOPEZ Referring Physician: SHE LOPEZ Performed By: Jere Mcleod Quality and Procedure An intravenous line was placed. A bite b lock was inserted. Informed consent for Transesophageal Echocardiogram was obtained prior to the procedure. The transesophageal probe was passed without difficulty. The patient's vital signs, including blo od pressure, heart rate, pulse oximetry and cardiac rhythm were monitored throughout the procedure and r emained stable. The patient tolerated the procedure well without evidence of orophangeal or esophageal tr auma. A 2D transesophageal echocardiogram with spectral and color flow Doppler was performed. IV concious sedation was administered using propofol. Left Ventricle The left ventricle is normal in size. Th ere is no thrombus. There is normal left ventricular wall thickness. Left ventricular systolic function is no rmal. The left ventricular wall motion is normal. Right Ventricle The right ventricle is normal in size an d function. There is normal right ventricular wall thickness. Atrium The left atrial size is normal. Right at rial size is normal. The interatrial septum is intact with no evidence for an atrial septal defect. In jection of contrast documented no interatrial shunt. Mitral Valve The mitral valve leaflets are thin and p liable. There is no evidence of mitral valve prolapse. There is no mitral valve stenosis. There is trace mi tral regurgitation. Tricuspid Valve The tricuspid valve is normal in structu re and function. There is no tricuspid valve prolapse. There is no tricuspid stenosis. No tricuspid regurgi tation. Aortic Valve The aortic valve is trileaflet. The aort ic valve opens well. There is no aortic valvular vegetation. No hemodynamically significant valvular aor tic stenosis. Trace aortic regurgitation. Pulmonic Valve The pulmonic valve is normal in structur e and function. There is no pulmonic valvular stenosis. There is no pulmonic valvular regurgitation. Vessels The aortic root is normal size. No obvio us dissection could be visualized. The pulmonary artery is normal size. Pericardial and Pleural Space There is no pericardial effusion. There is no pleural effusion. Interpretation Summary There is normal left ventricular wall th ickness. Left ventricular systolic function is no rmal. The right ventricle is normal in size an d function. The left atrial size is normal. Right atrial size is normal. Injection of contrast documented no inte ratrial shunt. The interatrial septum is intact with no evidence for an atrial septal defect. There is trace mitral regurgitation. The tricuspid valve is normal in structu re and function. Trace aortic regurgitation. The aortic valve is trileaflet. The pulmonic valve is normal in structur e and function. The aortic root is normal size. There is no pericardial effusion. According to ACC/AHA Guidelines: Angiotension converting enzyme inhibitor s or Angiotension II receptor blockers approved for the treatment of HF are recommended for all patients with current or prior symptoms of HF and reduced LVEF, unless contraindicated. (Class I, Level of Evid ence: A) ACC/AHA Practice Guidelines, Gunter et al. 2005, p. [phone] Please consider treatment for patients w ith an EF <40% or document contraindication to BOTH ZUNILDA-I/ARB. Please refer to ACC Guidelines for indic ations and contraindications. She Lopez MD CV ECHO PROCEDURES GREEN TOP TUBE (08/06/2018 9:22 AM EDT) Analysis Performed At Patho logist Time Signature Extra Tube An Extra tube LAB CHEMISTRY 02/01/2019 [facility] was collected METHOD 4:11 PM EDT from this patient. Please follow add on workflow or contact the Laboratory if you wish to place orders on this specimen. Specimen Anatomical Collection Method / Collection Time Recei debbie Time (Source) Location / Volume Laterality Blood Venous blood / Venipuncture / 08/06/2018 9:22 08/06/20 18 9:26 Unknown Unknown AM EDT AM EDT Nikolas Hines MD LAB BLOOD ORDERABLES Performing Organization Address City/State/ZIP Code Phon e Number [facility] [address] [place] [address] Magnesium (08/06/2018 9:22 AM EDT) P athologist Signature Magnesium 2.1 1.6 - 2.3 LAB CHEMISTRY 08/06/2018 [facility] mg/dL METHOD 9:58 AM EDT Specimen Anatomical Collection Method / Collection Time Recei debbie Time (Source) Location / Volume Laterality Blood Venous blood / Venipuncture / 08/06/2018 9:22 08/06/20 18 9:25 Unknown Unknown AM EDT AM EDT She Lopez MD LAB BLOOD ORDERABLES Performing Organization Address [facility]/ZIP [facility] Phon e Number [facility] [address] [place] [address] Basic metabolic panel (08/06/2018 9:22 AM EDT) P athologist Signature Glucose 90 65 - 105 LAB CHEMISTRY 08/06/2018 [facility] mg/dL METHOD 9:58 AM EDT BUN 13 7 - 22 LAB CHEMISTRY 08/06/2018 [facility] mg/dL METHOD 9:58 AM EDT Creatinine 0.8 0.7 - 1.2 LAB CHEMISTRY 08/06/2018 [facility] mg/dL METHOD 9:58 AM EDT Sodium 138 137 - 145 LAB CHEMISTRY 08/06/2018 [facility] mmol/L METHOD 9:58 AM EDT Potassium 4.3 3.5 - 5.3 LAB CHEMISTRY 08/06/2018 [facility] mmol/L METHOD 9:58 AM EDT Chloride 105 98 - 107 LAB CHEMISTRY 08/06/2018 [facility] mmol/L METHOD 9:58 AM EDT CO2 27 22 - 30 LAB CHEMISTRY 08/06/2018 [facility] mmol/L METHOD 9:58 AM EDT Calcium 9.9 8.4 - 10.2 LAB CHEMISTRY 08/06/2018 [facility] mg/dL METHOD 9:58 AM EDT eGFR >60 >60 LAB CHEMISTRY 08/06/2018 [facility] mL/min/1.73 METHOD 9:58 AM EDT m*2 Specimen Anatomical Collection Method / Collection Time Recei debbie Time (Source) Location / Volume Laterality Blood Venous blood / Venipuncture / 08/06/2018 9:22 08/06/20 18 9:25 Unknown Unknown AM EDT AM EDT She Lopez MD LAB BLOOD ORDERABLES Performing Organization Address City/[facility] Code Phon e Number [facility] [address] [place] [address] CBC and differential (08/06/2018 9:21 AM EDT) Component Value Ref Test Method Analysis Performed At Patho logist Range Time Signature WBC 4.24 4.00 - LAB 08/06/2018 [facility] 11.00 HEMETOLOGY 9:30 AM EDT K/uL METHOD RBC 4.63 3.80 - LAB 08/06/2018 [facility] 5.00 HEMETOLOGY 9:30 AM EDT M/uL METHOD Hemoglobin 14.2 11.0 - LAB 08/06/2018 [facility] 15.0 HEMETOLOGY 9:30 AM EDT g/dL METHOD Hematocrit 44 35 - 45 LAB 08/06/2018 [facility] % HEMETOLOGY 9:30 AM EDT METHOD MCV 94 81 - 99 LAB 08/06/2018 [facility] fL HEMETOLOGY 9:30 AM EDT METHOD MCH 31 28 - 32 LAB 08/06/2018 [facility] pg HEMETOLOGY 9:30 AM EDT METHOD MCHC 33 32 - 36 LAB 08/06/2018 [facility] g/dL HEMETOLOGY 9:30 AM EDT METHOD RDW-SD 43.4 35.0 - LAB 08/06/2018 [facility] 46.0 fL HEMETOLOGY 9:30 AM EDT METHOD RDW-CV 12.5 11.0 - LAB 08/06/2018 [facility] 15.0 % HEMETOLOGY 9:30 AM EDT METHOD MPV 10.4 9.0 - LAB 08/06/2018 [facility] 12.5 fL HEMETOLOGY 9:30 AM EDT METHOD nRBC 0 <=0 /100 LAB 08/06/2018 [facility] WBCs HEMETOLOGY 9:30 AM EDT METHOD Neutrophils % 51 40 - 75 LAB 08/06/2018 [facility] % HEMETOLOGY 9:30 AM EDT METHOD Lymphocytes % 35 15 - 45 LAB 08/06/2018 [facility] % HEMETOLOGY 9:30 AM EDT METHOD Monocytes % 10 2 - 12 % LAB 08/06/2018 [facility] HEMETOLOGY 9:30 AM EDT METHOD Eosinophils % 2 0 - 6 % LAB 08/06/2018 [facility] HEMETOLOGY 9:30 AM EDT METHOD Basophils % 1 0 - 2 % LAB 08/06/2018 [facility] HEMETOLOGY 9:30 AM EDT METHOD Neutrophils 2.17 1.60 - LAB 08/06/2018 [facility] Absolute 7.50 HEMETOLOGY 9:30 AM EDT K/uL METHOD Lymphocytes 1.50 0.60 - LAB 08/06/2018 [facility] Absolute 4.50 HEMETOLOGY 9:30 AM EDT K/uL METHOD Monocytes 0.43 0.10 - LAB 08/06/2018 [facility] Absolute 1.20 HEMETOLOGY 9:30 AM EDT K/uL METHOD Eosinophils 0.08 0.00 - LAB 08/06/2018 [facility] Absolute 0.60 HEMETOLOGY 9:30 AM EDT K/uL METHOD Basophils 0.05 0.00 - LAB 08/06/2018 [facility] Absolute 0.20 HEMETOLOGY 9:30 AM EDT K/uL METHOD Platelets 261 130 - LAB 08/06/2018 [facility] 400 K/uL HEMETOLOGY 9:30 AM EDT METHOD Immature 0 % LAB 08/06/2018 [facility] Granulocytes HEMETOLOGY 9:30 AM EDT METHOD Immature 0.01 K/UL LAB 08/06/2018 [facility] Granulocytes HEMETOLOGY 9:30 AM EDT Absolute METHOD Differential Auto LAB 08/06/2018 [facility] Type HEMETOLOGY 9:30 AM EDT METHOD Morphology NOT LAB 08/06/2018 [facility] Review PERFORMED HEMETOLOGY 9:30 AM EDT METHOD Specimen Anatomical Collection Method / Collection Time Recei debbie Time (Source) Location / Volume Laterality Blood (seventy Venipuncture / 08/06/2018 9:21 08/06/20 18 9:26 four) Unknown AM EDT AM EDT She Lopez MD LAB BLOOD ORDERABLES Performing Organization Address City/State/ZIP Code Phon e Number [facility] [address] [place], [place] [id number] [phone] Protime-INR (08/06/2018 9:18 AM EDT) P athologist Signature PT 10.3 9.4 - 11.3 LAB COAGULATION 08/06/2018 [facility] seconds METHOD 9:42 AM EDT INR 1.0 See Comment LAB COAGULATION 08/06/2018 [facility] METHOD 9:42 AM EDT Comment: The suggested therapeutic INR range for patients receiving coumadin varies in certain conditions. ??In general, an INR of 2-3 is recommended. ??A range of 2.5-3.5 is recommended for mechanical heart mary ve patients and in the presence of a lup us anticoagulant (per chest guidelines). 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
--- OUTSIDE RECORDS SUMMARY | 2022-07-17 08:05 | XMS_ITS | Encounter Summary ---
:1960 Author Organization [facility] Address [address] [place] [address] Care Team Providers Name Role Phone Sapphire Montez MD Primary Care Provider [phone] Reason for Visit Rehabilitation - Outpatient (Routine) - Closed Specialty Diagnoses / Procedures Referred By Contact Refer red To Contact Cardiac Rehabilitation Diagnoses Old [place] (myocardial infarction) Khris Wagner MD [facility] Cardio Hlth Fit Procedures Cardiac rehab evaluation [address] [facility] [address] [facility] 280 [facility], [facility] [address] [place] [phone] Fax: Referral ID Status Reason Start Date Expiration Date Visits Requ ested Visits Authorized [id number] Closed 09/02/2018 03/01/2019 36 36 Encounter Details Date Type Department Care Team Description 09/09/2018 Cardiac Rehab Cardiopulmonary Health Khris Wagner [place] (myocardial and Fitness MD infarction) [address] [facility], 1201 [facility] 240 [facility] 280 [phone] [facility] [phone] [place] [address] Social History Tobacco Use Types Packs/Day Years [...] as of this encounter Visit Diagnoses Diagnosis Old [place] (myocardial infarction) Old myocardial infarction documented in this encounter Care Teams Dietary Aide Relationship Specialty Start Date End Date Sapphire Montez MD PCP - General Internal Medicine 08/06/18 documented as of this encounter
--- OUTSIDE RECORDS SUMMARY | 2022-07-17 08:05 | XMS_ITS | Encounter Summary ---
:1960 Author Organization [facility] Address [address] [place] [address] Care Team Providers Name Role Phone Sapphire Montez MD Primary Care Provider [phone] Reason for Visit Rehabilitation - Outpatient (Routine) - Closed Specialty Diagnoses / Procedures Referred By Contact Refer red To Contact Cardiac Rehabilitation Diagnoses Old [place] (myocardial infarction) Khris Wagner MD [facility] Cardio Hlth Fit Procedures Cardiac rehab evaluation [address] [facility] [address] [facility] [address] [place] [phone] Fax: Referral ID Status Reason Start Date Expiration Date Visits Requ ested Visits Authorized [id number] Closed 09/02/2018 03/01/2019 36 36 Encounter Details Date Type Department Care Team Description 10/20/2018 Cardiac Rehab Cardiopulmonary Health and [place] (myocardial Fitness infarction) (Primary [address]) [address] [place] [address] Social History Tobacco Use Types Packs/Day Years [...] of this encounter Visit Diagnoses Diagnosis Old [place] (myocardial infarction) - Primary Old myocardial infarction documented in this encounter Care Teams Quality Engineer Medical Device Relationship Specialty Start Date End Date Sapphire Montez MD PCP - General Internal Medicine 08/06/18 documented as of this encounter
--- OUTSIDE RECORDS SUMMARY | 2022-07-17 08:05 | XMS_ITS | Encounter Summary ---
:1960 Author Organization [facility] Address [address] [place] [address] Care Team Providers Name Role Phone Sapphire Montez MD Primary Care Provider [phone] Encounter Details Date Type Department Care Team Description 08/06/2018 Anesthesia Event [facility] Foster Care Therapist Holding Nikolas Hines [address] MD [place], [place] [address] [phone] [place] [phone] [place], [place] [id number] (Wo rk) Anesthesia Record Procedure Summary Procedure Name Responsible Anesthesia Start Anesthesia Stop Anesthesiologist Time Time TRANSESOPHAGEAL ECHO Nikolas Hines MD 08/06/18 1033 0 08/06/18 1052 (LENNY) Events Date Time Event Comment 08/06/2018 0939 1033 In Room 1033 An Start 1033 An Start Data 1043 An Induction The patient was reevaluated immediately before moderate or deep sedation use and before anesthesia induction. 1051 an stop data 1052 Handoff to RN I completed my h andoff to the receiving nurse during which we: 1. Shree ntified the patient 2. Identified the responsible prov ider 3. Reviewed the pertinent medical history 4. Discu ssed the surgical course 5. Reviewed intra-op anesthe natalia management and issues during anesthesia 6. Se t expectations for post-procedure period 7. Allowe d opportunity for questions and acknowledgement of understanding. 1052 An Stop Name Total lidocaine (cardiac) injection 100 mg (mg) 20 mg propofol (DIPRIVAN) 10 mg/mL 150 mg sodium chloride 0.9 % infusion 400 mL Agents Name O2 (AUX) Air (AUX) Blood No blood administrations on file. Lines, Drains, and Airways Type Details Placement Removal Peripheral IV Placement Date: 08/06/18; 08/06/18914 by Geri sam 08/06/18 1207 by Placement Time: 914; TINA Calles RN Change Due: 08/10/18; Catheter Size: 18 G; Orientation: Right; Location: Antecubital; Site Prep: Chlorhexidine ; Local Anesth: None; Technique: Anatomical landmarks; Inserted by: Janelle Nelson RN; Insertion Attempts: 1; Patient Tolerance: Tolerated well; Removal Date: 08/06/18; Removal Time: 1206 documented in this encounter Social History Tobacco [...] encounter OR Notes Anesthesia Postprocedure Evaluation - Nikolas Hines MD - 08/06/2018 11:31 AM EDT Patient: Mago Branham Procedure Summary Date: 08/06/18 Room / Location: [facility] Foster Care Therapist Holding Anesthesia Start: 1033 Anesthesia Stop: 1052 Procedure: TRANSESOPHAGEAL ECHO (LENNY) Diagnosis: PFO (patent foramen ovale) (Other, Specify in Comments) Scheduled Providers: Nikolas Hines MD Responsible Provider: Nikolas Hines MD Anesthesia Type: general ASA Status: 3 Anesthesia Type: general Last vitals BP Vitals: 08/06/18 0949 Temp: 97.8 ??F (36.6 ??C) Temp Pulse Resp SpO2 Anesthesia Post Evaluation Patient location during evaluation: bedside Patient participation: complete - patient participated Level of consciousness: awake and alert Pain management: satisfactory to patient Airway patency: patent Anesthetic complications: no Cardiovascular status: acceptable and blood pressure returned to baseline Respiratory status: acceptable Hydration status: acceptable [employer] Qualified Clinical Data Registry: Perioperative Temperature Management: Exclusion: MAC, Peripheral Nerve Block, Emergency Case, Intentional Hypothermia, Duration < 60 minutes: Yes PACU Reintubation: General anesthesia with intubation and subsequent extubation in OR or PACU: No Required reintubation in the PACU: No Extubation was a planned trial documented in the medical record prior to removal of the original airway device: No Post-anesthetic transfer of care checklist/protocol to PACU/ICU: Transfer from OR to PACU or other non-ICU location upon case conclusion: Yes Transfer from OR to ICU upon case conclusion: No Use of transfer checklist/protocol: Yes PACU Assessment of Acute Postoperative Pain Prior to Anesthesia Care End: Age greater than or equal to 18 and assessed for pain in PACU prior to Anesthesia Care End: Yes Initial PACU pain score < 7/10: Yes Patient unable to report pain: No Perioperative Mortality: Intraoperative mortality while under care of anesthesia clinician prior to anesthesia end time: No Perioperative Cardiac Arrest: Unanticipated intraoperative cardiac arrest from anesthesia start time through anesthesia end time:No Unplanned Admission to ICU Related to Anesthesia Service up through End of PACU Care: Unplanned admission to ICU (not initially anticipated at anesthesia start time): No Anesthesia Preprocedure Evaluation - Nikolas Hines MD - 08/05/2018 9:17 AM EDT [place] in [place]. No coronary blockage. NPO status confirmed by me. No active GERD No family history of MH No prior anesthetic problems Patient denies chest pain, PICKERING, SOB or significant changes in their baseline shilo status. No results found for: WBC, HGB, HCT, MCV, PLT No results found for: GLUCOSE, CALCIUM, NA, K, CO2, CL, BUN, CREATININE No results found for this or any previous visit (from the past 4464 hour(s)). Physical Exam Airway Mallampati: II TM distance: >3 FB Neck ROM: normal Mouth Opening: normal Cardiovascular Rhythm: regular Rate: normal Dental - normal exam Pulmonary - normal exam Anesthesia Plan ASA 3 general intravenous induction Proposed anesthetic plan explained and relevant risks reviewed with patient. Informed consent obtained. Patient agrees to proceed. Plan discussed with DOOR PERSON. documented in this encounter Plan of Treatment Not on filedocumented as of this encounter Visit Diagnoses Not on filedocumented in this encounter Administered Medications Inactive Administered Medications - up to 3 most recent administrations Medication Order MAR Action Action Date Dose Rate Site lidocaine (cardiac) (XYLOCAINE) Given 08/06/2018 10:43 AM EDT 20 mg injection intravenous, As needed, Starting on Thu08/06/18 at 1043, Anesthesia Intra-op propofol (DIPRIVAN) injection Given 08/06/2018 10:46 AM EDT 50 mg intravenous, As needed, Starting on Thu08/06/18 at 1043, Anesthesia Intra-op Given 08/06/2018 10:43 AM EDT 100 mg sodium chloride 0.9 percent infusion New Bag 08/06/2018 10:33 AM EDT Continuous PRN, Starting on Thu08/06/18 at 1033, Anesthesia Intra-op documented in this encounter Care Teams Burial Needs Salesperson Relationship Specialty Start Date End Date Sapphire Montez MD PCP - General Internal Medicine 08/06/18 documented as of this encounter
--- OUTSIDE RECORDS SUMMARY | 2022-07-17 08:05 | XMS_ITS | Encounter Summary ---
:1960 Author Organization [facility] Address [address] [place] [address] Care Team Providers Name Role Phone Sapphire Montez MD Primary Care Provider [phone] Reason for Visit Rehabilitation - Outpatient (Routine) - Closed Specialty Diagnoses / Procedures Referred By Contact Refer red To Contact Cardiac Rehabilitation Diagnoses Old [place] (myocardial infarction) Khris Wagner MD [facility] Cardio Hlth Fit Procedures Cardiac rehab evaluation [address] [facility] [address] [facility] [address] [place] [phone] Fax: Referral ID Status Reason Start Date Expiration Date Visits Requ ested Visits Authorized [id number] Closed 09/02/2018 03/01/2019 36 36 Encounter Details Date Type Department Care Team Description 10/01/2018 Cardiac Rehab Cardiopulmonary Health and Old [place] (myocardial Fitness infarction) (Primary [address] Dx) [address] [place] [address] Social History Tobacco Use Types [...] of this encounter Visit Diagnoses Diagnosis Old [place] (myocardial infarction) - Primary Old myocardial infarction documented in this encounter Care Teams Bench Inspector Relationship Specialty Start Date End Date Sapphire Montez MD PCP - General Internal Medicine 08/06/18 documented as of this encounter
--- OUTSIDE RECORDS SUMMARY | 2022-07-17 08:05 | XMS_ITS | Encounter Summary ---
:1960 Author Organization [facility] Address [address] [place] [address] Care Team Providers Name Role Phone Sapphire Montez MD Primary Care Provider [phone] Reason for Referral Imaging (Routine) - Closed Specialty Diagnoses / Procedures Referred By Contact Refer red To Contact Diagnoses Abnormal finding on breast imaging Felicia Roblero MD [facility] Procedures Mammogram Problem Solving Additional Views Left CHG MAMMOGRAPHY; UNILATERAL [address] [place] [address] Phone: [phone] Fax: [phone] Referral ID Status Reason Start Date Expiration Date Visits Requ ested Visits Authorized [id number] Closed 06/22/2019 1 1 Reason for Visit Imaging (Routine) - Closed Specialty Diagnoses / Procedures Referred By Contact Refer red To Contact Diagnoses Abnormal finding on breast imaging Felicia Roblero MD [facility] Procedures Mammogram Problem Solving Additional Views Left CHG MAMMOGRAPHY; UNILATERAL [address] [place] [address] Phone: [phone] Fax: [phone] Referral ID Status Reason Start Date Expiration Date Visits Requ ested Visits Authorized [id number] Closed 06/22/2019 1 1 Encounter Details Date Type Department Care Team Description 06/24/2019 Hospital Encounter [facility] for Felicia Roblero Abnormal finding on Women MD Kristen breast imaging [address] [place] [address], [address] [facility] [phone] Social History Tobacco Use Types Packs/Day Years [...] Name Priority Date/Time Associated Comments Diagnosis MAMMO PROB SOLV Routine 06/24/2019 10:19 AM Abnormal finding o n Results for this ADDITIONAL VIEWS EDT breast imaging procedure are in LEFT the results section. documented in this encounter Results Mammogram Problem Solving Additional Views Left (06/24/2019 10:19 AM EDT) Anatomical Region Laterality Modality Breast Left Mammography Specimen (Source) Anatomical Location Collection Method / Collectio n Time Received Time / Laterality Volume Impressions 06/24/2019 10:56 AM EDT No mammographic evidence of malignancy. Findings and recommendations were discus sed with the patient. Patient was provided with a written summary. Screening Mammogram in 1 Year is recomme nded for both breasts. Overall BI-RADS category: 2 - Benign [place] Miller: Mago Pedroza Electronically signed by: James Pederson MD On: 06/24/19 10:55 AM Narrative 06/24/2019 10:56 AM EDT Mammogram Problem Solving Additional Views Left obtained on 06/24/19. INDICATION: Previous abnormal left breas t mammogram. Calcifications UIQ COMPARED TO: 06/08/2019 Mammogram Breast Screening To mosynthesis Bilateral at [facility] BREAST COMPOSITION: The tissue of the le ft breast is heterogeneously dense. This will lower the sensitivity o f mammography. Your patient's mammogram demonstrates that she has dens e breast tissue, which could hide small abnormalities. The patient has bee n sent a letter which informs her that she has dense breast tissue. The pa tient may contact you if she has any questions or concerns. RISK ASSESSMENT: Based on the Tyrer-Cuzi ck model, this patient's calculated 10-year risk for developing b reast cancer is Tyrer-Cuzick: 2.13 % and the patient's lifetime risk is Tyr er-Cuzick: 5.89 %. The [employer] considers women with 20% lifetime risk as high risk. Between 15% and 20% is considered inter mediate risk. These patients may benefit from enrollment in a high risk screening program for complete and thorough breast cancer risk assessme nt and management. FINDINGS: Computer-aided detection was used by the radiologist in the interpretation of this examination. ?? Additional imaging demonstrates scattere d round calcifications within the left breast including at the left breast 2:00 position, which appear benign. There are no suspicious masses, calcific ations, or other abnormal findings. Felicia Roblero MD IMG BI PROCEDURES documented in this encounter Visit Diagnoses Diagnosis Abnormal finding on breast imaging documented in this encounter Care Teams Napper Fixer Relationship Specialty Start Date End Date Sapphire Montez MD PCP - General Internal Medicine 08/06/18 documented as of this encounter
--- OUTSIDE RECORDS SUMMARY | 2022-07-17 08:05 | XMS_ITS | Encounter Summary ---
:1960 Author Organization [facility] Address [address] [place] [address] Care Team Providers Name Role Phone Sapphire Montez MD Primary Care Provider [phone] Reason for Referral Rehabilitation - Outpatient (Routine) - Closed Specialty Diagnoses / Procedures Referred By Contact Refer red To Contact Cardiac Rehabilitation Diagnoses Old [place] (myocardial infarction) Khris Wagner MD [facility] Cardio Hl Fit Procedures Cardiac rehab evaluation 1201 [facility] [address] [facility] 280 [facility], [address] [place] [phone] Fax: Referral ID Status Reason Start Date Expiration Date Visits Requ ested Visits Authorized [id number] Closed 09/02/2018 03/01/2019 36 36 Encounter Details Date Type Department Care Team Description 09/02/2018 Transcribe Orders Cardiopulmonary Health Max Wagner [place] (myocardial and Fitness MD Khris infarction) [address] [facility], 1201 [facility] (Prim terese Dx) [address] [place], [place] [address] [phone] [employer] [phone] [place] [address] Social History Tobacco Use Types Packs/Day Years Used Date Smoking Tobacco: Former Smokeless Tobacco: Never Alcohol Use Standard Drinks/Week Comments No 0 (1 standard drink = 0.6 oz pure alcoho l) Sex Assigned at Date Recorded Not on file Job Start Date Occupation Industry Not on file Not on file Not on file documented as of this encounter Plan of Treatment Scheduled Orders Name Type Priority Associated Diagnoses Order S chedule Cardiac rehab Card Rehab Routine [place] (myocardial 1 Occurr ences starting evaluation infarction) 09/02/2018 unti l 09/02/2019 documented as of this encounter Visit Diagnoses Diagnosis Old [place] (myocardial infarction) - Primary Old myocardial infarction documented in this encounter Care Teams Veneer Department Manager Relationship Specialty Start Date End Date Sapphire Montez MD PCP - General Internal Medicine 08/06/18 documented as of this encounter
--- OUTSIDE RECORDS SUMMARY | 2022-07-17 08:05 | XMS_ITS | Encounter Summary ---
:1960 Author Organization [facility] Address [address] [place] [address] Care Team Providers Name Role Phone Sapphire Montez MD Primary Care Provider [phone] Reason for Visit Rehabilitation - Outpatient (Routine) - Closed Specialty Diagnoses / Procedures Referred By Contact Refer red To Contact Cardiac Rehabilitation Diagnoses Old [place] (myocardial infarction) Khris Wagner MD [facility] Cardio Hlth Fit Procedures Cardiac rehab evaluation [address] [facility] [address] [facility] [address], [address] [place] [phone] Fax: Referral ID Status Reason Start Date Expiration Date Visits Requ ested Visits Authorized [id number] Closed 09/02/2018 03/01/2019 36 36 Encounter Details Date Type Department Care Team Description 09/27/2018 Cardiac Rehab Cardiopulmonary Health and Old [place] (myocardial Fitness infarction) (Primary [address] Dx) [address] [place] [address] Social History Tobacco Use Types [...] of this encounter Visit Diagnoses Diagnosis Old [place] (myocardial infarction) - Primary Old myocardial infarction documented in this encounter Care Teams Automatic Screwmaker Relationship Specialty Start Date End Date Sapphire Montez MD PCP - General Internal Medicine 08/06/18 documented as of this encounter
--- OUTSIDE RECORDS SUMMARY | 2022-07-17 08:05 | XMS_ITS | Encounter Summary ---
:1960 Author Organization [facility] Address [address] [place] [address] Care Team Providers Name Role Phone Sapphire Montez MD Primary Care Provider [phone] Encounter Details Date Type Department Care Team Description 09/22/2018 Cardiac Rehab Cardiopulmonary Health and Old [place] (myocardial Fitness infarction) (Primary [address]) [address] [place] [address] Social History Tobacco Use Types [...] of this encounter Visit Diagnoses Diagnosis Old [place] (myocardial infarction) - Primary Old myocardial infarction documented in this encounter Care Teams Bar Hostess Relationship Specialty Start Date End Date Sapphire Montez MD PCP - General Internal Medicine 08/06/18 documented as of this encounter
--- OUTSIDE RECORDS SUMMARY | 2022-07-17 08:05 | XMS_ITS | Encounter Summary ---
:1960 Author Organization [facility] Address [address] [place] [address] Care Team Providers Name Role Phone Sapphire Montez MD Primary Care Provider [phone] Reason for Visit Rehabilitation - Outpatient (Routine) - Closed Specialty Diagnoses / Procedures Referred By Contact Refer red To Contact Cardiac Rehabilitation Diagnoses Old [place] (myocardial infarction) Khris Wagner MD [facility] Cardio Hlth Fit Procedures Cardiac rehab evaluation [address] [facility] [address] [facility] [address], [address] [place] [phone] Fax: Referral ID Status Reason Start Date Expiration Date Visits Requ ested Visits Authorized [id number] Closed 09/02/2018 03/01/2019 36 36 Encounter Details Date Type Department Care Team Description 10/27/2018 Cardiac Rehab Cardiopulmonary Health and Old [place] (myocardial Fitness infarction) (Primary [address]) [address] [place] [address] Social History Tobacco Use Types [...] of this encounter Visit Diagnoses Diagnosis Old [place] (myocardial infarction) - Primary Old myocardial infarction documented in this encounter Care Teams Casting Finisher Relationship Specialty Start Date End Date Sapphire Montez MD PCP - General Internal Medicine 08/06/18 documented as of this encounter
--- OUTSIDE RECORDS SUMMARY | 2022-07-17 08:05 | XMS_ITS | Encounter Summary ---
:1960 Author Organization [facility] Address [address] [place] [address] Care Team Providers Name Role Phone Sapphire Montez MD Primary Care Provider [phone] Reason for Visit Rehabilitation - Outpatient (Routine) - Closed Specialty Diagnoses / Procedures Referred By Contact Refer red To Contact Cardiac Rehabilitation Diagnoses Old [place] (myocardial infarction) Khris Wagner MD [facility] Cardio Hlth Fit Procedures Cardiac rehab evaluation [address] [facility] [address] [facility] [address] [place] [phone] Fax: Referral ID Status Reason Start Date Expiration Date Visits Requ ested Visits Authorized [id number] Closed 09/02/2018 03/01/2019 36 36 Encounter Details Date Type Department Care Team Description 11/17/2018 Cardiac Rehab Cardiopulmonary Health and [place] (myocardial Fitness infarction) (Primary [address]) [address] [place] [address] Social History Tobacco Use Types [...] of this encounter Visit Diagnoses Diagnosis Old [place] (myocardial infarction) - Primary Old myocardial infarction documented in this encounter Care Teams Catering Truck Operator Relationship Specialty Start Date End Date Sapphire Montez MD PCP - General Internal Medicine 08/06/18 documented as of this encounter
--- OUTSIDE RECORDS SUMMARY | 2022-07-17 08:13 | XMS_ITS | Continuity of Care Document ---
:1960 External Reference #:[id number] Author Payers Date Identification Numbers Payment Provider Subscrib er Effective: Policy Number: [id number] [employer] Pos Melody Abdi 2018 Group Number: [id number] [address] PayID: [id number] HEATHER [place] [phone] Problems Active Problems Provider Date Abdominal pain Onset: 12/04/2017 Urinary tract infectious disease Onset: 12/04/2017 Follow-up status Onset: 12/03/2017 Insomnia Onset: 05/02/2011 Recurrent urinary tract infection Onset : 05/02/2011 Allergies and adverse reactions Description No Known Drug Allergies Medications Active Medications SIG Qnty Indications Ordering Date Provider Amlodipine Unknown 07/05/2018 Besylate 5mg Tablets Proair HFA Take 2 Puffs By 8.5units Vinnie Velasquez 108(90Base) mcg/Act Mouth Every 4 To III, M.D. Aerosol 6 Hours as Needed Trazodone HCL 50mg Take 1 Tablet 90tabs Vinnie Morales Ba rt 05/06/2018 Tablets By Mouth AT III, M.D. Bedtime as Needed For Insomnia Imitrex 25mg Unknown 05/03/2018 Tablets Procedures Date Code Description Status 12/07/2017 [id number] Colonoscopy Completed Medical Devices Description No Information Available Encounters Description No Information Available Assessments Description No Information Available Plan of Treatment No Information Available Functional Status Description No Information Available Mental Status Description No Information Available Referrals Description No Information Available
--- NOTE | 2022-07-17 08:59 | ED.GENADUL_ITS ---
Discharge Plan Disposition Patient Disposition: HOME Condition: Stable Discharge Details Clinical Impression: Respiratory illness Primary Care Provider: Tatianna,Local ED Provider: Ge Long Home Meds and New Rx's Prescriptions: New levalbuterol tartrate 45 mcg/actuation HFA aerosol inhaler 2 inh inhalation Q6H PRN (Reason: shortness of breath or wheezing) Qty: 15 0RF benzonatate 100 mg capsule 100 mg PO BID PRNQty: 21 0RF Continued trazodone 50 mg tablet 0.5 tab PO DAILY Label Comments: TAKE 1 TABLET BY MOUTH EVERYDAY AT BEDTIME diltiazem HCl 240 mg capsule,extended release 24 hr 240 mg PO DAILY Label Comments: TAKE 1 CAPSULE BY MOUTH EVERY DAY rosuvastatin [Crestor] 10 mg Tablet 10 mg PO DAILY ranolazine [Ranexa] 500 mg Tablet Extended Release 12 Hr 500 mg PO TID estradiol 0.075 mg/24 hr patch semiweekly 2 patch transdermal QWEEK Label Comments: APPLY 1 PTACH TO CLEAN, DRY SKIN AND CHANGE TWICE WEEKLY nitroglycerin 0.4 mg tablet, sublingual 1 tab sublingual PRN PRN Label Comments: DIRECTED, NEEDED progesterone micronized 100 mg capsule 1 cap PO DAILY Label Comments: TAKE 1 CAPSULE BY MOUTH EVERY EVENING senna 8.6 mg Capsule 17 mg PO DAILY nebivolol [Bystolic] 2.5 mg Tablet 2.5 mg PO DAILY cholecalciferol (vitamin D3) [Vitamin D3] 50 mcg (2,000 unit) Tablet 2,000 unit PO DAILY Discharge Instructions Instructions: Chest Pain (ED), Acute Bronchitis (ED) Additional Instructions: Please contact your primary care physician to arrange follow-up. Call today. Additional outpatient diagnostic testing may be necessary if symptoms persist. I do recommend cardiac stress testing be performed ideally within 72 hours. Please discuss this with your doctor today. Please maintain home rest with no exertional activities until cleared by your doctor. Please drink plenty of fluids to stay hydrated. Return to the ER immediately for any worsening or new concerning symptoms. Discharge Data Discharge Date/Time-TO BE ENTERED AT DEPARTURE: 07/17/22 12:43 Medical Decision Making 9:00?- 61-year-old female with history of coronary artery vasospasm and microvascular disease, clean coronary cath 2 years ago, here with shortness of breath and chest discomfort started this morning, associated fatigue yesterday and also discomfort between scapula in the back today. Patient is saturating well in no respiratory distress. She is hemodynamically stable. Screening EKG was reviewed and interpreted by me: Sinus rhythm 79 bpm, S1Q3T3 is present. Normal axis, no STEMI. Consider ACS, I will check troponin. Patient is traveling from [place] to the area recently with long train ride and car ride. She has no leg swelling or calf tenderness. She is not tachycardic or hypoxic. Consider pulmonary embolism. She is low risk and will check D- dimer. Consider pulmonary disease including pneumonia and pneumothorax. Will obtain chest x-ray. I am concerned about potential for COVID and will check COVID test. -- Labs reviewed: Patient does have leukocytosis. Troponin negative. D-dimer negative. Repeat delta troponin negative. Repeat EKG negative and unchanged. Please see report. Remained hemodynamically stable saturating well in no respiratory distress after period of ED observation. Plan for discharge with outpatient follow-up. I will provide leave albuterol inhaler and Tessalon Perles as requested by patient and family for symptomatic relief of cough. Disposition decision was made weighing the risks and benefits of hospitalization versus outpatient treatment, the risk for further decompensation, and the patient's wishes. The patient was stable and requested discharge. Prior to discharge, my usual and customary return precautions were reviewed with the patient - this included follow-up instructions and reason to return to the emergency department if condition worsens, does not improve as expected, or other new concerns arise. HPI General Mode of arrival: ambulatory . Date/Time Provider Initiated Documentation: 07/17/22 07:51 . Limitations to Documentation: no limitations . Information obtained by: patient . HPI Narrative: 61-year-old female with history of coronary vasospasm and coronary artery microvascular disease, clean coronary cath 2 years ago, here with chief complaint of shortness of breath. Patient notes yesterday she was paddle boarding and suddenly felt like she hit a wall. Today she woke up with dry cough and chest discomfort described as a chest pressure with associated shortness of breath. Patient notes it feels like she has an Bowen bandage wrapped around her chest and also feels burning in her sternum. She also notes some discomfort between her scapula and her back. Patient does acknowledge she has been doing a lot of physical activity while visiting the area and that back pain may be musculoskeletal. Patient denies associated leg pain or swelling. She has no fever. Symptoms are moderate. Chest discomfort does not worsen with deep breath. Related Data Home Medications Medication Instructions Recorded Confirmed benzonatate 100 mg capsule 100 mg PO BID PRN #21 caps 07/17/22 07/21/22 cholecalciferol (vitamin D3) 50 2,000 unit PO DAILY 07/17/22 07/21/22 mcg (2,000 unit) tablet (Vitamin D3) diltiazem HCl 240 mg capsule,24 240 mg PO DAILY 07/17/22 07/21/22 hr,extended release estradiol 0.075 mg/24 hr 2 patch transdermal QWEEK 07/17/22 07/21/22 semiweekly transdermal patch levalbuterol tartrate 45 2 inh inhalation Q6H PRN shortness 07/17/22 07/21/22 mcg/actuation aerosol inhaler of breath or wheezing #15 grams nebivolol 2.5 mg tablet (Bystolic) 2.5 mg PO DAILY 07/17/22 07/21/22 nitroglycerin 0.4 mg sublingual 1 tab sublingual PRN PRN 07/17/22 07/21/22 tablet progesterone micronized 100 mg 1 cap PO DAILY 07/17/22 07/21/22 capsule ranolazine 500 mg tablet,extended 500 mg PO TID 07/17/22 07/21/22 release,12 hr (Ranexa) rosuvastatin 10 mg tablet (Crestor) 10 mg PO DAILY 07/17/22 07/21/22 sennosides 8.6 mg capsule (senna) 17 mg PO DAILY 07/17/22 07/21/22 trazodone 50 mg tablet 0.5 tab PO DAILY 07/17/22 07/21/22 Previous Rx's Medication Instructions Recorded benzonatate 100 mg capsule 100 mg PO BID PRN #21 caps 07/17/22 levalbuterol tartrate 45 2 inh inhalation Q6H PRN shortness 07/17/22 mcg/actuation aerosol inhaler of breath or wheezing #15 grams Allergies Allergy/AdvReac Type Severity Reaction Status Date / Time No Known Allergies Allergy Unverified 07/21/22 08:19 General Stated Complaint: Chest Pain LISA: 2 Review of Systems All systems reviewed & are unremarkable except as noted in HPI and below Constitutional Constitutional: Denies fever(s) Cardiovascular Cardiovascular: Reports as per HPI PFSH All Active Problems (Updated 07/21/22 @ 11:16 by KAMALJIT Preston) Respiratory illness (Acute) Social History Smoking/Tobacco Use Status: Never Smoking risk assessment performed?: Yes Substance use type: does not use Do you feel safe at home: Yes Do you feel safe in your relationship?: Yes Exam Const General: cooperative and no acute distress HENMT Mouth: moist mucous membranes Eyes Conjunctivae: normal conjunctivae Sclera: normal sclerae Neck Neck: trachea midline Resp Auscultation: clear to auscultation bilaterally, no rales, no rhonchi and no wheezes Cardio Rate: regular rate and not tachycardic Rhythm: regular rhythm GI Palpation: soft, not firm, no guarding, no masses, not rigid and nontender Skin General skin exam: no rashes or lesions noted Neuro General: patient alert, patient awake, patient oriented x3 and tone normal Extrem General: no calf tenderness and no edema Psych Appearance: grossly normal Mental Status: mental status grossly normal Speech and Movement: speech and movement normal Course Vital Signs Vital signs: Vital Signs Temperature 36.3 C L 07/17/22 08:01 Pulse 66 07/17/22 08:01 Pulse Oximetry 99 07/17/22 08:01 Temperature 36.3 C L 07/17/22 08:01 Temperature Source Temporal Artery Scan 07/17/22 08:01 Pulse 66 07/17/22 08:01 Respiratory Rate 26 H 07/17/22 08:15 Respiratory Effort 07/17/22 08:15 Respiratory Depth Normal 07/17/22 08:15 Respiratory Pattern Normal 07/17/22 08:15 Blood Pressure 140/44 L 07/17/22 08:27 Blood Pressure Position Sitting 07/17/22 08:01 Pulse Oximetry 99 07/17/22 08:01 Oxygen Delivery Method Room Air 07/17/22 08:01 Oxygen Flow Rate 0 07/17/22 08:01 Pain Level 0 07/17/22 08:01
[2022-07-17 09:28] LABS: Source Nasal/Nares
[2022-07-17 09:33] LABS: Abs Immature Grans 0.05 10^3/uL (0.0-0.06); Absolute Basophil Count 0.06 10^3/uL (0.0-0.2); Absolute Eosinophil Count 0.06 10^3/uL (0.0-0.7); Absolute Lymphocyte Count 1.94 10^3/uL (1.2-3.4); Absolute Monocyte Count 1.23 10^3/uL (0.1-0.8); Basophils % 0.5; Eosinophils % 0.5; HCT 41.1 % (36.0-46.0); HGB 13.8 g/dL (11.2-15.7); Immature Grans % 0.4; MCH 32.6 pg (27.0-33.0); MCHC 33.6 % (32.0-36.0); MCV 97 fL (80-95); MPV 11.1 fL (8.0-11.0); Monocytes % 9.5; Neutrophils % 74.1; Platelet Count 247 10^3/uL (130-400); RBC 4.23 10^6/uL (3.93-5.22); RDW 12.8 % (11.7-14.6); RDW-SD 45.3 fL; WBC 12.94 10^3/uL (4.4-10.8)
[2022-07-17 09:37] LABS: Absolute Neutrophil Count 9.59 10^3/uL (1.2-6.7)
--- NOTE | 2022-07-17 09:41 | DI.RAD_ITS ---
Exam(s) XR PORTABLE CHEST AP EXAM: XR PORTABLE CHEST AP CLINICAL HISTORY: cough, sob. TECHNIQUE: 2D digital imaging was performed. COMPARISON: No exams were available for comparison FINDINGS: LUNGS: Clear. No pleural abnormality seen. HEART: Normal. MEDIASTINUM: Normal. OTHER FINDINGS: None. IMPRESSION: No acute pulmonary findings. DATA REPOSITORY: RADIATION DOSE DELIVERED: Total DLP
[2022-07-17 09:48] LABS: ALT 26 U/L (14-59); AST 11 U/L (15-37); Albumin 4.1 g/dL (3.4-5.0); Alkaline Phosphatase 73 U/L (46-116); BUN 16 mg/dL (7-18); Bilirubin, Total 0.4 mg/dL (0.2-1.0); CREATININE 0.8 mg/dL (0.55-1.02); Calcium 9.2 mg/dL (8.5-10.1); Chloride 105 mmol/L (98-107); Glucose 97 mg/dL (74-106); Magnesium 2.3 mg/dL (1.8-2.4); Potassium 4.2 mmol/L (3.5-5.1); Sodium 142 mmol/L (136-145); Total Protein 7.2 g/dL (6.4-8.2); Troponin I < 50 ng/L (<or=60)
[2022-07-17 09:57] LABS: D-Dimer 315 ng/mlFEU (<500)
[2022-07-17 10:01] LABS: COVID-19 PCR Negative (Negative)
[2022-07-17] MEDS: Ibuprofen 400 MG TAB PO (10:41)
[2022-07-17 11:49] LABS: Troponin I < 50 ng/L (<or=60)
--- NOTE | 2022-07-17 12:00 | RT.EKG_ITS ---
APPROVED REPORT Exam: Resting ECG Reason for Exam: chest discomfort Patient Location: E HR:50 bpm ECG Measurements Heart Rate 50 AXIS OH 150 P -5 QRSd 95 QRS 57 QT 487 T 27 QTc 443 Conclusion Sinus bradycardia...rate< 60
== END 2022-07-17 12:43 | disposition home or self-care (01) ==
PROVIDERS: Emergency Provider Student in an Organized Health Care Education/Training Program
DX: J98.9 Respiratory disorder, unspecified (principal); D72.829 Elevated white blood cell count, unspecified; R07.89 Other chest pain; Z20.822 Contact with and (suspected) exposure to COVID-19
CPT/HCPCS: 36415; 80053; 87635; 93005; 99284; 71045; 83735; 84484; 85025; 85379; 93010

== ENCOUNTER 2022-07-21 08:12 | Emergency (ER) | payer BC, SELFPAY ==
[2022-07-21 08:14] VITALS: BP 142/60; PULSE 55; RESP 18; TEMP 36.9; O2SAT 100
[2022-07-21 08:28] VITALS: RESP 20
--- NOTE | 2022-07-21 08:30 | RT.EKG_ITS ---
APPROVED REPORT Exam: Resting ECG Reason for Exam: cough Patient Location: E HR:51 bpm ECG Measurements Heart Rate 51 AXIS MS 134 P 10 QRSd 94 QRS 71 QT 461 T 59 QTc 427 Conclusion Sinus bradycardia...rate< 60 TW flattening aVL, V2, no STEMI, non-diagnostic EKG
--- NOTE | 2022-07-21 08:30 | DI.RAD_ITS ---
Exam(s) XR PORTABLE CHEST AP EXAM: XR PORTABLE CHEST AP CLINICAL HISTORY: cough TECHNIQUE: 2D digital imaging was performed of the chest. One image was obtained. An AP view was ob tained. COMPARISON: CR XR PORTABLE CHEST AP from 07/17/2022 FINDINGS: MEDIASTINUM: Normal. HEART: Normal. PULMONARY VASCULATURE: Normal. LUNGS: Clear. PLEURAL SPACE: No pleural effusion or pneumothorax. BONE:Within normal limits for the patient's age. OTHER FINDINGS:Normal. IMPRESSION: No acute pulmonary findings. DATA REPOSITORY: RADIATION DOSE DELIVERED:
[2022-07-21 08:35] VITALS: BP 152/61; PULSE 57; RESP 20; TEMP 36.4; O2SAT 100
--- NOTE | 2022-07-21 08:46 | ED.GENADUL_ITS ---
Discharge Plan Disposition Patient Disposition: HOME Condition: Stable Discharge Details Clinical Impression: Respiratory illness Primary Care Provider: Tatianna,Local ED Provider: Eugenia Kay Home Meds and New Rx's Prescriptions: Continued trazodone 50 mg tablet 0.5 tab PO DAILY Label Comments: TAKE 1 TABLET BY MOUTH EVERYDAY AT BEDTIME diltiazem HCl 240 mg capsule,extended release 24 hr 240 mg PO DAILY Label Comments: TAKE 1 CAPSULE BY MOUTH EVERY DAY rosuvastatin [Crestor] 10 mg Tablet 10 mg PO DAILY ranolazine [Ranexa] 500 mg Tablet Extended Release 12 Hr 500 mg PO TID estradiol 0.075 mg/24 hr patch semiweekly 2 patch transdermal QWEEK Label Comments: APPLY 1 PTACH TO CLEAN, DRY SKIN AND CHANGE TWICE WEEKLY nitroglycerin 0.4 mg tablet, sublingual 1 tab sublingual PRN PRN Label Comments: DIRECTED, NEEDED progesterone micronized 100 mg capsule 1 cap PO DAILY Label Comments: TAKE 1 CAPSULE BY MOUTH EVERY EVENING senna 8.6 mg Capsule 17 mg PO DAILY nebivolol [Bystolic] 2.5 mg Tablet 2.5 mg PO DAILY cholecalciferol (vitamin D3) [Vitamin D3] 50 mcg (2,000 unit) Tablet 2,000 unit PO DAILY levalbuterol tartrate 45 mcg/actuation HFA aerosol inhaler 2 inh inhalation Q6H PRN (Reason: shortness of breath or wheezing) Qty: 15 0RF benzonatate 100 mg capsule 100 mg PO BID PRNQty: 21 0RF Discharge Instructions Instructions: Upper Respiratory Infection (ED) Additional Instructions: Your x-ray and labs are reassuring here today. You are negative for COVID. No evidence of pneumonia or blood clot. Your history and exam more consistent with viral illness likely causing them musculoskeletal or nerve pain associated with your frequent coughing. Please continue to encourage hydration. Please continue with Tylenol and/or ibuprofen as needed for discomfort. You may use the lidocaine patches that are available [id number] to help with pain. Please follow-up with your primary care in the next 1 to 2 weeks for reevaluation. If you develop shortness of breath, difficulty breathing, inability stay hydrated or the new/worsening symptoms to seek care urgently with again. Discharge Data Discharge Date/Time-TO BE ENTERED AT DEPARTURE: 07/21/22 11:32 Medical Decision Making Patient is a pleasant 61-year-old female, accompanied by her daughter, with past medical history pertinent for coronary artery vasospasm and microvascular disease, presenting with chief complaint of right sided rib discomfort that began around 4 AM. States this was deep breathing and coughing. He was seen here 4 days ago for bronchitis. At that time, patient was endorsing some chest discomfort and she reports that this type of discomfort has resolved. During her episodes of coronary artery vasospasm, patient has had more classic ACS discomfort and denies having any of this recently. Patient has been taking the levalbuterol and Tessalon Perles with good symptomatic management. She reports that she took ibuprofen and Tylenol at 4 AM when she awoke with right-sided chest discomfort. She states that the chest pain did wake her from sleep. She denies any shortness of breath. However, she does report that when walking in a hotel this morning she became lightheaded. Is not currently having symptoms of this. No syncopal episodes. No past medical history of clotting disorder. Patient did have a D-dimer completed 4 days ago which is negative as well as troponin. b patient is from [place], did travel here recently primarily in private car. COVID was negative. On exam, patient appears nontoxic. She has dry nonforceful cough noted. Normal HEENT exam. Lungs are clear. No rash. Reproducible pain is elicited over the posterior mid ribs. No recent trauma or evidence of trauma objectively. No crepitus. No lower extremity edema or calf tenderness. Patient's acutely worsening symptoms do have any concern for pneumonia, PE, pneumothorax in the setting of frequent cough. More likely, this could potentially be musculoskeletal strain associated from her frequent dry cough. We will add Lidoderm patch to her Tylenol ibuprofen to recheck this morning. Will obtain repeat chest x-ray, EKG and laboratory evaluation. Patient adamant that this does not feel like her ACS has in the past. However, she has had worsening chest discomfort I do feel that screening with repeat troponin would be appropriate given her past medical history. We will also repeat COVID testing Labs are reassuring. Nomral troponin, negative covid, no leukocytosis, negative d-dimer. MEDIASTINUM: Normal.? HEART: Normal. PULMONARY VASCULATURE: Normal. LUNGS: Clear.? PLEURAL SPACE: No pleural effusion or pneumothorax. BONE:Within normal limits for the patient's age. OTHER FINDINGS:Normal.? IMPRESSION: No acute pulmonary findings. Discussed findings with patient and daughter. Advised that her discomfort is likely associated with her frequent cough and muscular strain. Alterantively, pleuritis. Discussed both possibilities. We discussed symptom managament. encouraged hdyration. Encouraged close f/u with PCP. Return precautions discuseed. We discussed expected course of virarl URI. All of her quesitons and concerns were addressed, she is in agreeement with this plan. HPI General Date/Time Provider Initiated Documentation: 07/21/22 08:15 . Limitations to Documentation: no limitations . Information obtained by: patient, family, RN notes reviewed and old records reviewed . History of Present Illness 61 year old F presents to the emergency department with the chief complaint of right sided rib pain, cough, lightheadedness, described as moderate, with intensity rated at 5. Quality is described as aching, and is localized to the chest. Patient reports no radiation. Patient started experiencing this hour(s) (cough began 4 days ago, rib discomfort began at 0400) and it has been constant. No relieving factors improve symptom(s), No exacerbating factors reported . Patient notes chest pain (right sided chest all pain, no midline or left sided pain), cough and malaise (reports increased generalized fatigue and weakness today); denies confusion, diaphoresis, fever/chills, loss of appetite, nausea/vomiting, rash, shortness of breath and syncope. Related Data Home Medications Medication Instructions Recorded Confirmed benzonatate 100 mg capsule 100 mg PO BID PRN #21 caps 07/17/22 07/21/22 cholecalciferol (vitamin D3) 50 2,000 unit PO DAILY 07/17/22 07/21/22 mcg (2,000 unit) tablet (Vitamin D3) diltiazem HCl 240 mg capsule,24 240 mg PO DAILY 07/17/22 07/21/22 hr,extended release estradiol 0.075 mg/24 hr 2 patch transdermal QWEEK 07/17/22 07/21/22 semiweekly transdermal patch levalbuterol tartrate 45 2 inh inhalation Q6H PRN shortness 07/17/22 07/21/22 mcg/actuation aerosol inhaler of breath or wheezing #15 grams nebivolol 2.5 mg tablet (Bystolic) 2.5 mg PO DAILY 07/17/22 07/21/22 nitroglycerin 0.4 mg sublingual 1 tab sublingual PRN PRN 07/17/22 07/21/22 tablet progesterone micronized 100 mg 1 cap PO DAILY 07/17/22 07/21/22 capsule ranolazine 500 mg tablet,extended 500 mg PO TID 07/17/22 07/21/22 release,12 hr (Ranexa) rosuvastatin 10 mg tablet (Crestor) 10 mg PO DAILY 07/17/22 07/21/22 sennosides 8.6 mg capsule (senna) 17 mg PO DAILY 07/17/22 07/21/22 trazodone 50 mg tablet 0.5 tab PO DAILY 07/17/22 07/21/22 Previous Rx's Medication Instructions Recorded benzonatate 100 mg capsule 100 mg PO BID PRN #21 caps 07/17/22 levalbuterol tartrate 45 2 inh inhalation Q6H PRN shortness 07/17/22 mcg/actuation aerosol inhaler of breath or wheezing #15 grams Allergies Allergy/AdvReac Type Severity Reaction Status Date / Time No Known Allergies Allergy Unverified 07/21/22 08:19 General Stated Complaint: GenMedical LISA: 3 Review of Systems Constitutional Constitutional: Reports as per HPI Eyes Eyes: Reports as per HPI ENT Ears, Nose, Mouth, and Throat: Reports as per HPI Cardiovascular Cardiovascular: Reports as per HPI and Denies dyspnea Respiratory Respiratory: Reports as per HPI, Reports chest congestion, Reports cough, Denies hemoptysis, Reports pain on inspiration, Reports pain with cough and Denies dyspnea Gastrointestinal Gastrointestinal: Reports as per HPI, Denies abdominal pain, Denies change in bowel habits, Denies nausea and Denies vomiting Integumentary/Breasts Skin/Breast: Reports as per HPI and Denies rash Neurologic Neurologic: Reports as per HPI PFSH All Active Problems (Updated 07/21/22 @ 11:16 by KAMALJIT Preston) Respiratory illness (Acute) Social History Smoking/Tobacco Use Status: Never Smoking risk assessment performed?: Yes Substance use type: does not use Do you feel safe at home: Yes Do you feel safe in your relationship?: Yes Exam Const General: cooperative, healthy appearing, comfortable, no acute distress, well developed and well groomed Nutritional Appearance: average body habitus and well nourished Orientation: alert and awake [facility] Head: normal to inspection, normocephalic and atraumatic Ears: hearing grossly normal bilaterally, external ears normal and TM's normal bilaterally General nose exam: external nose normal and nares normal Face and sinus: normal facial exam, sinuses nontender and face symmetric Mouth: oral mucosae normal, lip normal, tongue normal, oropharynx normal and moist mucous membranes Teeth and gingiva: dentition normal Throat: posterior oropharynx normal, tonsils normal and uvula midline Eyes General: appearance normal, both eyes and all related structures Neck Neck: normal visual inspection, full ROM, no lymphadenopathy and no meningeal signs Chest Chest: normal inspection of the chest, normal palpation of entire chest wall, no crepitus and tenderness (right posterior mid ribs, no focal area) Resp Effort & Inspection: normal respiratory effort, able to speak in complete sentences, cough Quality of cough: dry and no respiratory distress Auscultation: clear to auscultation bilaterally, no rales, no rhonchi and no wheezes Cardio Rate: regular rate Rhythm: regular rhythm Heart Sounds: S1 normal and S2 normal Skin General skin exam: no rashes or lesions noted Neuro General: patient alert and patient awake Cognition: normal cognition Speech: speech normal Gait: normal gait Extrem General: normal to inspection, no pedal edema and no calf tenderness Psych Appearance: grossly normal and well kempt Mental Status: mental status grossly normal Speech and Movement: speech and movement normal Course Vital Signs Vital signs: Vital Signs Temperature 36.9 C 07/21/22 08:14 Pulse 55 L 07/21/22 08:14 Respiratory Rate 18 07/21/22 08:14 Blood Pressure 142/60 H 07/21/22 08:14 Pulse Oximetry 100 07/21/22 08:14 Temperature 36.4 C L 07/21/22 08:35 Temperature Source Tympanic 07/21/22 08:35 Pulse 57 L 07/21/22 08:35 Respiratory Rate 20 07/21/22 08:35 Respiratory Effort 07/21/22 08:28 Respiratory Depth Normal 07/21/22 08:28 Respiratory Pattern Normal 07/21/22 08:28 Blood Pressure 152/61 H 07/21/22 08:35 Blood Pressure Position Sitting 07/21/22 08:14 Pulse Oximetry 100 08/29/22 08:35 Oxygen Delivery Method Room Air 07/21/22 08:35 Oxygen Flow Rate 0 07/21/22 08:35 Pain Level 5 07/21/22 08:14
[2022-07-21 09:25] LABS: Source Nasal/Nares
[2022-07-21] MEDS: Lidocaine 5% Patch 1 PATCH TP (09:28)
[2022-07-21 09:29] LABS: Abs Immature Grans 0.04 10^3/uL (0.0-0.06); Absolute Basophil Count 0.06 10^3/uL (0.0-0.2); Absolute Eosinophil Count 0.05 10^3/uL (0.0-0.7); Absolute Monocyte Count 0.86 10^3/uL (0.1-0.8); Absolute Neutrophil Count 8.38 10^3/uL (1.2-6.7); Basophils % 0.6; Eosinophils % 0.5; HCT 40.4 % (36.0-46.0); HGB 13.3 g/dL (11.2-15.7); Immature Grans % 0.4; MCHC 32.9 % (32.0-36.0); MCV 97 fL (80-95); MPV 10.7 fL (8.0-11.0); Neutrophils % 77.5; Platelet Count 211 10^3/uL (130-400); RBC 4.16 10^6/uL (3.93-5.22); RDW 12.6 % (11.7-14.6); RDW-SD 45.1 fL; WBC 10.79 10^3/uL (4.4-10.8)
[2022-07-21 09:47] LABS: BUN 15 mg/dL (7-18); CREATININE 0.7 mg/dL (0.55-1.02); Chloride 102 mmol/L (98-107); Glucose 107 mg/dL (74-106); Potassium 4.2 mmol/L (3.5-5.1); Sodium 138 mmol/L (136-145); Troponin I < 50 ng/L (<or=60)
[2022-07-21 09:59] LABS: COVID-19 PCR Negative (Negative)
[2022-07-21 10:14] LABS: D-Dimer 309 ng/mlFEU (<500)
== END 2022-07-21 11:32 | disposition home or self-care (01) ==
PROVIDERS: Emergency Provider Physician Assistant
DX: J98.9 Respiratory disorder, unspecified (principal); R07.89 Other chest pain; Z20.822 Contact with and (suspected) exposure to COVID-19
CPT/HCPCS: 36415; 80048; 87635; 93005; 99283; 71045; 84484; 85025; 85379; 93010; 99285